=== PATIENT | male | born 1935 | race Caucasian/White ===

== ENCOUNTER 2018-07-12 14:57 | Emergency (ER) | payer MEDICARE, OTHER, SELFPAY ==
[2018-07-12 14:57] VITALS: BP 162/73; PULSE 123; RESP 18; TEMP 37.1; O2SAT 93; BMI 30.9
[2018-07-12] MEDS: Ondansetron 4 MG/2 ML Vial IV (15:24)
[2018-07-12 15:36] LABS: BUN 34 mg/dL (7-18); Creatinine, Serum 1.68 mg/dL (0.70-1.30); Estimated Creatinine Clearance 33.32 ml/min; Glucose 154 mg/dL (74-106)
[2018-07-12 15:37] LABS: Anion Gap 12 (5-15); BUN/Creat Ratio 20.2 RATIO (10-20); Calcium,Total 9.8 mg/dL (8.5-10.1); Chloride 105 mmol/L (98-107); EST Glomerular Filtration Rate 42 mL/min (>60); Est Glom Filt Rate - Afr Amer 50 mL/min (>60); Potassium 4.2 mmol/L (3.5-5.1); Sodium Level 141 mmol/L (136-145)
--- NOTE | 2018-07-12 15:47 | ED.VISSUMM ---
- ER Visit Summary Date of Service: 07/12/18 Chief Complaint: Nausea and vomiting since last evening History of Present Illness: The patient is a 83 M who presents with nausea and vomiting since last evening. Onset 2100. He states he has vomited at least 10 times. He denies blood or coffee grounds in his emesis. He reports brown colored stool. He is passing gas. He is status post appendectomy and exploratory surgery for traumatic injury to his liver many years ago. He denies abdominal pain, distention or sensation of feeling bloated. He denies thirst does report mild dry mouth denies orthostatic symptoms. He denies decreased urine output or change in color of his urine. He denies fever, chills or night sweats. He denies weight gain or weight loss. He denies ocular, visual or auditory symptoms. He denies cardiac or respiratory symptoms. GI symptoms as documented in HPI. per HPI otherwise negative he denies myalgias, arthralgias or back pain. He denies paresthesia, anesthesia motor weeks. He denies problems with balance. Please read written note for complete detail Physical Examination: Vital signs noted and remarkable for an elevated blood pressure 162/73 and heart rate 123. Monitor reveals a sinus tachycardia greater than 120 without ectopy. HEENT exam is remarkable dry mucosa otherwise negative. Heart is rapid and regular without murmur, gallop or rub. Lungs are clear to auscultation. Abdomen is soft nontender bowel sounds present normal. There is no temporal percussion. Midline incision noted. Lower extremity exam reveals lack of hair, which patient states is chronic. He has no symptoms of claudication. Neuro exam is nonfocal. Please read written note for complete detail Test Results: Basic metabolic panels marked for glucose of 154 BUN 34 and a creatinine 1.68. April 22 creatinine was 1.45. Emergency Department Course and Treatment: 1 L of normal saline and Zofran. Patient did passed p.o. challenge. Basic metabolic panel was obtained to assess renal function as well as potassium. Treatment Plan: Prescription for Zofran, advance diet as tolerated and outpatient follow-up for repeat blood work. Disposition: Discharged to home in stable condition Impression: 1. Nausea and vomiting 2. Renal insufficiency 3. Hyperglycemia and nondiabetic patient 4. Mild dehydration This note was generated with [employer] software. It may contain incorrect words, spelling, and punctuation that were not noted in review of the chart prior to signing ED Disposition - Plan for ED Patient: Disposition: Home or Assisted Living Chief Complaint: Nausea/Vomiting Instructions: ED Nausea Vomiting Prescriptions: Ondansetron [Zofran Odt] 8 mg PO Q8H PRN PRN #5 PRN Reason: Nausea/Vomiting Referrals: Ji Myrick MD [Primary Care Provider] - 1-2 Days if not improving
[2018-07-12 16:33] VITALS: BP 155/74; PULSE 80; RESP 16; O2SAT 94
[2018-07-12 16:52] VITALS: BP 155/74; PULSE 80; RESP 16; O2SAT 94
== END 2018-07-12 16:53 | disposition home or self-care (01) ==
PROVIDERS: Emergency Provider Emergency Medicine; Family Provider Internal Medicine; PCP Internal Medicine
DX: R11.2 Nausea with vomiting, unspecified (principal); E86.0 Dehydration; I10 Essential (primary) hypertension; R73.9 Hyperglycemia, unspecified; N28.9 Disorder of kidney and ureter, unspecified; R00.0 Tachycardia, unspecified; Z79.899 Other long term (current) drug therapy
CPT/HCPCS: 80048; 96374; 99283; A4216; J2405

== ENCOUNTER 2019-06-05 05:08 | Inpatient (IN) | payer MEDICARE, OTHER, SELFPAY ==
[2019-03-06 11:07] VITALS: BMI 30.5
[2019-06-05] VITALS (12 sets, daily range): BP systolic 102–175; BP diastolic 57–87; PULSE 49–92; RESP 16–19; TEMP 36.4–36.8; O2SAT 95–96; BMI 29.5; BMI 30.6
--- NOTE | 2019-06-05 05:35 | ED.DCSUM_ITS ---
History of Present Illness Chief Complaint: GI Bleed Informant: Patient Onset: Today Context: Sudden Onset Timing: - - x2 this am, large amounts w/ clots, no stool Quality: bright red blood Location: rectal Worsened by: n/a Relieved by: n/a Associated Symptoms: none Narrative: Patient states couple days ago he felt some rectal irritation like he had a perianal rash that was sore. He had normal stools. This morning woke up with large amounts of rectal bleeding. He denies any weakness, lightheadedness, nausea, vomiting, abdominal pain. Denies any rectal pain right now. He has never had this before. He takes a baby aspirin per day but no antiplatelet otherwise and no anticoagulants. - Past Medical History (1) Hypertension Status: Chronic Past Medical History - Allergies and Home Meds Allergies/Adverse Reactions: Allergies shellfish derived Adverse Reaction (Verified 06/05/19 05:13) Nausea/Vom/Diarrhea Primary Care Physician: Ji Myrick MD [Primary Care Provider] - Surgical History: appendectomy, herniorrhaphy - Left inguinal Lives: Spouse/ Significant Other Smoking Status: Never smoker Review of Systems General: Denies: Chills, Fever, Sweats Eyes: Denies: Visual changes - bilaterally, Diplopia ENT: Denies: Rhinorrhea, Sore throat Cardiovascular: Denies: Chest pain, Palpitations Respiratory: Denies: Dyspnea, Cough, Dyspnea on exertion Gastrointestinal: Reports: Hematochezia. Denies: Abdominal pain, Nausea, Vomiting, Diarrhea, Melena Genitourinary: Denies: Dysuria, Hematuria, Frequency Musculoskeletal: Denies: Back pain, Extremity Pain Skin: Denies: Rash, Wounds Neurological: Denies: Headache, Weakness, Numbness Physical Exam Vital Signs/Narrative: Vital Signs Temp Pulse Resp BP Pulse Ox 06/05/19 05:09 98.2 F 92 19 H 171/87 H 96 Inital Vital Signs reviewed: Yes General: Well nourished, Well developed, No Acute Distress - Well-appearing Head: Normocephalic, Atraumatic Eyes: Perrl, EOMI ENT: Moist mucous membranes, No rhinorrhea Neck: Supple, Nontender Cardiovascular: Regular rate, Regular rhythm, No murmurs. Negative for: Tachycardia Respiratory: No distress, CTA bilaterally, Chest nontender Abdomen: Soft, Nontender, Nondistended, Normal bowel sounds Rectal: Nontender - No perianal lesions or rash or tenderness or fullness. Dark red blood present on rectal exam, no pooling. Back: Nontender, Normal Inspection Extremities: Nontender, No edema Skin: Normal color, No rash, No Trauma Neurological: Alert, Oriented x3, Cranial nerves II-XII grossly intact, Normal Strength, Normal Sensation Psychological: Normal affect, Normal Mood Diagnostic/Tx/Re-eval Laboratory Tests 06/05/19 06/05/19 Range/Units 05:15 05:15 WBC 10.6 (4.4-11.0) K/mm3 RBC 4.41 L (4.6-6.2) M/mm3 Hgb 13.3 (13.0-16.5) g/dL Hct 41.4 (40-54) % MCV 93.9 (80-94) fL MCH 30.2 (27.0-32.0) pg MCHC 32.1 (32-36) g/dL RDW Std Deviation 45.7 H (35.1-43.9) fl RDW Coeff of Cesar 13.3 (11.6-14.6) % Plt Count 324 (150-450) K/mm3 MPV 9.0 (6.2-12.0) fl Immature Gran % (Auto) 0.500 (0.0-0.9) % Neut % (Auto) 48.2 (47-70) % Lymph % (Auto) 33.6 (19-41) % [place] % (Auto) 7.7 (0-10) % Eos % (Auto) 9.0 H (0-5) % Baso % (Auto) 1.0 (0-1) % Absolute Neuts (auto) 5.1 (2.0-7.7) X10^3/uL Absolute Lymphs (auto) 3.55 (0.83-4.51) X10^3/uL Nucleated RBC % 0 (0-5) % Sodium 143 (136-145) mmol/L Potassium 4.7 (3.5-5.1) mmol/L Chloride 111 H (98-107) mmol/L Carbon Dioxide 23.0 (21.0-32.0) mmol/L Anion Gap 9 (5-15) BUN 38 H (7-18) mg/dL Creatinine 2.14 H (0.70-1.30) mg/dL Estim Creat Clear Calc 27.01 ml/min Est GFR (MDRD) Af Amer 38 L (>60) mL/min Est GFR (MDRD) Non-Af 31 L (>60) mL/min BUN/Creatinine Ratio 17.8 (10-20) RATIO Glucose 143 H (74-106) mg/dL Calcium 8.8 (8.5-10.1) mg/dL Total Bilirubin 0.30 (0.20-1.00) mg/dL AST 14 L (15-37) U/L ALT 13 L (16-61) U/L Alkaline Phosphatase 68 (45-117) U/L Total Protein 7.5 (6.4-8.2) g/dL Albumin 3.8 (3.2-5.0) g/dL Globulin 3.7 (2.2-4.2) g/dL Albumin/Globulin Ratio 1.0 (0.9-2.4) RATIO - Medical Decision Making Patient had several other small bloody bowel movements in the emergency department. His orthostatics are positive although the patient did not feel poorly or lightheaded. Due to this even though his blood counts are stable, plan will be for admission. ED Disposition - Plan for ED Patient: Disposition: Acute Care Hospital [facility] Diagnosis: Lower GI bleed Referrals: Ji Myrick MD [Primary Care Provider] -
[2019-06-05] MEDS: 0.9% Normal Saline 1,000 ML 125 ML IV ×3 (05:46→22:12)
[2019-06-05 05:52] LABS: Absolute Lymphocyte Count 3.55 X10^3/uL (0.83-4.51); Absolute Neutrophil Count 5.1 X10^3/uL (2.0-7.7); Basophil# 0.11 X10^3/uL; Eosinophil# 0.95 X10^3/uL; Hematocrit 41.4 % (40-54); Hemoglobin 13.3 g/dL (13.0-16.5); Lymphocyte # 3.55 X10^3/ul (4.0); Lymphocyte % 33.6 % (19-41); Mean Corp Hgb Conc 32.1 g/dL (32-36); Mean Corpuscular Hgb 30.2 pg (27.0-32.0); Mean Corpuscular Volume 93.9 fL (80-94); Monocyte# 0.81 X10^3/uL; Monocyte% 7.7 % (0-10); NRBC Flagged by Analyzer 0 % (0-5); Neutrophil % 48.2 % (47-70); Platelet Count 324 K/mm3 (150-450); RBC Distribution Width CV 13.3 % (11.6-14.6); RBC Distribution Width SD 45.7 fl (35.1-43.9); Red Blood Count 4.41 M/mm3 (4.6-6.2); White Blood Count 10.6 K/mm3 (4.4-11.0)
[2019-06-05 06:07] LABS: AST(SGOT) 14 U/L (15-37); Alanine Aminotransfer ALT/SGPT 13 U/L (16-61); Albumin, Serum 3.8 g/dL (3.2-5.0); Alkaline Phosphatase 68 U/L (45-117); Anion Gap 9 (5-15); BUN 38 mg/dL (7-18); BUN/Creat Ratio 17.8 RATIO (10-20); Calcium,Total 8.8 mg/dL (8.5-10.1); Chloride 111 mmol/L (98-107); Creatinine, Serum 2.14 mg/dL (0.70-1.30); EST Glomerular Filtration Rate 31 mL/min (>60); Est Glom Filt Rate - Afr Amer 38 mL/min (>60); Estimated Creatinine Clearance 27.01 ml/min; Globulin 3.7 g/dL (2.2-4.2); Glucose 143 mg/dL (74-106); Potassium 4.7 mmol/L (3.5-5.1); Protein, Total 7.5 g/dL (6.4-8.2); Sodium Level 143 mmol/L (136-145)
--- NOTE | 2019-06-05 06:28 | HP.PCM_ITS ---
History of Present Illness Date of Admission: 06/05/19 Chief Complaint: Painless rectal bleeding The patient is a 83 year old M with past medical history of hypertension, hyperlipidemia, BPH and diverticular disease. He was admitted through the ED on 06/05/2019 with a complaint of bright red bleeding per rectum was started a few hours prior to admission. Patient states he has been having dark-colored stools over the past few days but he thought it would go away. However in the early hours of the day of presentation, he started having profuse bright red bleeding per rectum. This was associated with some clots. He denied any associated lightheadedness, dizziness, palpitations, abdominal pain or vomiting. He has never had such rectal bleeding before. He has had no unexplained weight loss and has not been diagnosed with any form of cancer. However he states he had colonoscopy about 5 years ago and was told he had diverticular disease. Review of systems is otherwise negative. In the ED at time of review, blood pressure was 163/84. Vitals were otherwise stable. Chemistry showed creatinine of 2.14 and CBC showed hemoglobin of 13.3. He has been admitted to be managed for acute lower GI bleed likely due to diverticular disease. [] Past Medical History Past Medical History (Chronic Problems): Chronic Problems (Last Updated 03/06/19 @ 11:28 by Mariana Borden) Hypertension (Chronic) Medical History: Medical History (Last Updated 03/06/19 @ 11:28 by Mariana Borden) HTN (hypertension) I10 Allergies shellfish derived Adverse Reaction (Verified 06/05/19 05:13) Nausea/Vom/Diarrhea Home Medications: Ambulatory Orders Medication Instructions Recorded Finasteride 5 mg PO DAILY 01/02/14 Metoprolol Tartrate 50 mg PO DAILY 01/02/14 Simvastatin 40 mg PO DAILY 01/02/14 Amlodipine Besylate/Benazepril 0.5 tab PO DAILY 07/12/18 [Amlodipine-Benazepril 5-20 mg] Cholecalciferol (VIT D3) [Vitamin 1,000 unit PO DAILY 07/12/18 D] Multivit-Min/FA/Lycopen/Lutein 1 tab PO DAILY 07/12/18 [Centrum Silver Tablet] Ondansetron [Zofran Odt] 8 mg PO Q8H PRN PRN #5 07/12/18 cephalexin 500 mg capsule 500 mg PO TID #30 cap 03/06/19 Surgical History: appendectomy, herniorrhaphy - Left inguinal Lives: Spouse/ Significant Other Smoking Status: Never smoker Alcohol: Occasional Drugs: None - *Family History Maternal History Items: No pertinent history Paternal History Items: No pertinent history Sibling History Items: Cancer - brother had bone cancer Review of Systems Constitutional: Denies: Chills, Fever, Malaise, Weakness, Weight Change, Fatigue Eyes: Denies: Blurred vision HEENT: Denies: Head Aches, Sinus Congestion, Sinus Drainage Cardiovascular: Denies: Chest Pain, Palpitations Respiratory: Denies: Cough, Shortness of Breath, Shortness of breath at rest, Sputum production Gastrointestinal: Reports: Hematochezia. Denies: Abdominal Pain, Diarrhea, Dyspepsia, Nausea, Vomiting Genitourinary: Denies: Dysuria Musculoskeletal: Denies: Joint Pain, Joint Tenderness Skin: Denies: Rash, Wounds Neurological: Denies: Numbness, Tingling, Focal weakness Psychiatric: Denies: Anxiety, Depression, Homicidal Ideations, Suicidal Ideations Hematologic/ Lymphatic: Denies: Easy Bruising, Easy Bleeding VTE Information - Inpt Only VTE Present on Admission: No VTE Pharm Prophylaxis ordered?: No Reason prophylaxis not ordered:: Medical Contraindication - rectal bleeding Patient Problems: Active and Suspected Problems (Last Updated 03/06/19 @ 11:28 by Mariana Borden) Lower GI bleed (Acute) - Physical Exam General: Alert, Oriented x3, Cooperative, No apparent distress HEENT: Atraumatic, PERRLA, EOMI, Normocephalic Oral: Dry Mucosa Neck: Supple, No JVD, Negative Carotid Bruits Lungs: Clear to auscultation, Normal air movement, No rhonchi, No wheeze, No rales Cardiovascular: Regular rate, Regular Rhythm, Normal S1, Normal S2, No murmurs Abdomen: Bowel Sounds Present, Soft, Non Tender, Non-Distended, No Hepato- splenomegaly Extremities: No clubbing, No cyanosis, No edema, Capillary Refill Less than 3 Seconds Skin: No rashes, No breakdown Musculoskeletal: No Tenderness to Palpation of Joints or Extremities Lymphatic: No Cervical, Supraclavicular, or Inguinal Adenopathy Neurological: Cranial nerves II-XII grossly intact, Neuro grossly intact, Motor Exam 5/5 strength throughout Psych/Mental Status: Normal Affect, Appropriate, Alert and oriented to time, place, person, mood and affect Vital Signs Temp Pulse Resp BP Pulse Ox 98.2 F 92 19 H 171/87 H 96 06/05/19 05:09 06/05/19 05:09 06/05/19 05:09 06/05/19 05:09 06/05/19 05:09 Oxygen Delivery Method Room Air Weight: 205 lb 11.06 oz Body Mass Index (BMI) 29.5 Laboratory Tests Past 24 Hrs 06/05/19 06/05/19 06/05/19 05:15 05:15 05:15 WBC 10.6 RBC 4.41 L Hgb 13.3 Hct 41.4 MCV 93.9 MCH 30.2 MCHC 32.1 RDW Std Deviation 45.7 H RDW Coeff of Cesar 13.3 Plt Count 324 MPV 9.0 Immature Gran % (Auto) 0.500 Neut % (Auto) 48.2 Lymph % (Auto) 33.6 [place] % (Auto) 7.7 Eos % (Auto) 9.0 H Baso % (Auto) 1.0 Absolute Neuts (auto) 5.1 Absolute Lymphs (auto) 3.55 Nucleated RBC % 0 Sodium 143 Potassium 4.7 Chloride 111 H Carbon Dioxide 23.0 Anion Gap 9 BUN 38 H Creatinine 2.14 H Estim Creat Clear Calc 27.01 Est GFR (MDRD) Af Amer 38 L Est GFR (MDRD) Non-Af 31 L BUN/Creatinine Ratio 17.8 Glucose 143 H Calcium 8.8 Total Bilirubin 0.30 AST 14 L ALT 13 L Alkaline Phosphatase 68 Total Protein 7.5 Albumin 3.8 Globulin 3.7 Albumin/Globulin Ratio 1.0 Blood Type Pending Antibody Screen Pending Assessment/Plan All Active Problems (Last Updated 03/06/19 @ 11:28 by Mariana Borden) Lower GI bleed (Acute) Cellulitis of left forearm (Acute) Abrasion of left forearm (Acute) 83-year-old male admitted with a complaint of painless rectal bleeding. 1. Acute lower GI bleed likely due to diverticular disease * Admit to PCU with telemetry * States his been told in the past he has diverticular disease but has never had rectal bleeding before. Last colonoscopy according to him was about 5 years ago. * Keep n.p.o. Hydrate with IV fluid normal saline at 125 cc/h * check orthostatics * Consult general surgery-Dr. Shane to be consulted per family request. * Start IV PPI. If colonoscopy reveals diverticular bleed, to consider stopping PPI * type and screen blood * 2. MAIA on CKD: * Creatinine is 2.14 with a baseline of around 1.68 from 2018. Hydrate with IV fluid normal saline. Monitor creatinine. 3. Hypertension: On amlodipine benazepril as well as metoprolol. 4. BPH: On finasteride. 5. Hyperlipidemia: On statin. DVT prophylaxis: SCDs. No anticoagulation on account of lower GI bleed. CODE STATUS: DNR CCA * Patient counseled extensively about different types of CODE STATUS including full code, DNR CCA and DNR CCA. Patient elects to be DNRCCA. Total [id number] time 16 minutes. Code Visit Inpatient E&M: 85917 Init Hosp L3 Procedures: 56921 Advncd Care Plan 30 Min
[2019-06-05 10:23] LABS: International Normalized Ratio 1.1; Prothrombin Time (Protime)PT. 14.1 SECONDS (11.7-14.9)
[2019-06-05 11:31] LABS: Hematocrit 35.6 % (40-54); Hemoglobin 11.3 g/dL (13.0-16.5)
--- NOTE | 2019-06-05 13:08 | CASEMGMT ---
RN CM Assessment: attempted to complete assessment. Physician is with pt. Sussy INIGUEZN RN ACM
--- NOTE | 2019-06-05 14:04 | CON.PCM_ITS ---
Reason for Consult Date of Consultation: 06/05/19 Reason for Consultation: GI bleeding History of Present Illness: The patient is a 83 year old M who notes a history of intermittent bright red rectal bleeding x several days. Notes a few days ago had some mild anal irritation and what seemed like a rash. Noted some blood in stools over the weekend which then seemed to resolve, and then this morning passed a large amount of bright red blood along with some clots in his stool which prompted him to present to the emergency department. Patient had labs in the ED which showed hemoglobin of 11.3. He was admitted for observation. Patient denies any abdominal pain, fever, chills, or changes in bowel habits. Denies dizziness or weight changes. Denies nausea or changes in appetite. States he feels well otherwise and has had a few more stools since his hospital admission which were non-bloody. He denies any prior history of GI bleeding episodes. His last colonoscopy was [address] Alford, per patient no concerning findings noted at that time. Patient's past medical history is significant for hypertension, hyperlipidemia, BPH, diverticular disease. He denies problems with sedation in the past. Past Medical History Past Medical History (Chronic Problems): Chronic Problems (Last Updated 03/06/19 @ 11:28 by Mariana Borden) Hypertension (Chronic) Medical History: Medical History (Last Updated 03/06/19 @ 11:28 by Mariana Borden) HTN (hypertension) I10 Allergies shellfish derived Adverse Reaction (Verified 06/05/19 05:13) Nausea/Vom/Diarrhea Home Medications: Ambulatory Orders Medication Instructions Recorded Finasteride 5 mg PO DAILY 01/02/14 Metoprolol Tartrate 50 mg PO BID 01/02/14 Simvastatin 40 mg PO DAILY 01/02/14 Cholecalciferol (VIT D3) [Vitamin 1,000 unit PO DAILY 07/12/18 D] Multivit-Min/FA/Lycopen/Lutein 1 tab PO DAILY 07/12/18 [Centrum Silver Tablet] Amlodipine Besylate/Benazepril 1 ea PO DAILY 06/05/19 [Amlodipine-Benazepril 5-20 mg] Aspirin [Adult Low Dose Aspirin EC] 81 mg PO DAILY 06/05/19 Fiber PO DAILY 06/05/19 Lactobacillus Acidophilus 1 ea PO DAILY 06/05/19 [Acidophilus] Surgical History: appendectomy, herniorrhaphy - Left inguinal Lives: Spouse/ Significant Other Smoking Status: Never smoker Alcohol: Occasional Drugs: None - *Family History Maternal History Items: No pertinent history Paternal History Items: No pertinent history Sibling History Items: Cancer - brother had bone cancer Review of Systems Constitutional: Denies: Anorexia, Chills, Fever, Malaise, Weakness, Fatigue Eyes: Denies: Vision Change HEENT: Denies: Difficulty Hearing, Visual Changes Cardiovascular: Denies: Chest Pain, Chest Pressure, Chest Tightness, Edema Respiratory: Denies: Shortness of breath at rest Gastrointestinal: Reports: Hematochezia. Denies: Abdominal Pain, Constipation, Diarrhea, Hematemesis, Nausea, Vomiting Hematologic/ Lymphatic: Denies: Easy Bruising, Easy Bleeding Patient Problems: Active and Suspected Problems (Last Updated 03/06/19 @ 11:28 by Mariana huynh) Lower GI bleed (Acute) - Physical Exam General: Alert, Oriented x3, Cooperative, No apparent distress HEENT: Atraumatic Oral: Moist Mucosa Neck: Supple Lungs: Clear to auscultation, Normal air movement Cardiovascular: Regular rate, Regular Rhythm, Normal S1, Normal S2 Abdomen: Bowel Sounds Present, Soft, Non Tender Extremities: No clubbing, No cyanosis, No edema Skin: No rashes, No breakdown Musculoskeletal: No Tenderness to Palpation of Joints or Extremities Psych/Mental Status: Normal Affect Vital Signs Temp Pulse Resp BP Pulse Ox 97.5 F L 59 L 18 131/59 H 95 06/05/19 07:59 06/05/19 10:35 06/05/19 07:59 06/05/19 07:59 06/05/19 07:59 Oxygen Delivery Method Room Air Weight: 201 lb 8.04 oz Body Mass Index (BMI) 30.6 Laboratory Tests Past 24 Hrs 06/05/19 06/05/19 06/05/19 05:15 05:15 05:15 WBC 10.6 RBC 4.41 L Hgb 13.3 Hct 41.4 MCV 93.9 MCH 30.2 MCHC 32.1 RDW Std Deviation 45.7 H RDW Coeff of Cesar 13.3 Plt Count 324 MPV 9.0 Immature Gran % (Auto) 0.500 Neut % (Auto) 48.2 Lymph % (Auto) 33.6 [place] % (Auto) 7.7 Eos % (Auto) 9.0 H Baso % (Auto) 1.0 Absolute Neuts (auto) 5.1 Absolute Lymphs (auto) 3.55 Nucleated RBC % 0 PT INR Sodium 143 Potassium 4.7 Chloride 111 H Carbon Dioxide 23.0 Anion Gap 9 BUN 38 H Creatinine 2.14 H Estim Creat Clear Calc 27.01 Est GFR (MDRD) Af Amer 38 L Est GFR (MDRD) Non-Af 31 L BUN/Creatinine Ratio 17.8 Glucose 143 H Calcium 8.8 Total Bilirubin 0.30 AST 14 L ALT 13 L Alkaline Phosphatase 68 Total Protein 7.5 Albumin 3.8 Globulin 3.7 Albumin/Globulin Ratio 1.0 Blood Type O POSITIVE Antibody Screen NEGATIVE 06/05/19 06/05/19 05:15 11:22 WBC RBC Hgb 11.3 L Hct 35.6 L MCV MCH MCHC RDW Std Deviation RDW Coeff of Cesar Plt Count MPV Immature Gran % (Auto) Neut % (Auto) Lymph % (Auto) [place] % (Auto) Eos % (Auto) Baso % (Auto) Absolute Neuts (auto) Absolute Lymphs (auto) Nucleated RBC % PT 14.1 INR 1.1 Sodium Potassium Chloride Carbon Dioxide Anion Gap BUN Creatinine Estim Creat Clear Calc Est GFR (MDRD) Af Amer Est GFR (MDRD) Non-Af BUN/Creatinine Ratio Glucose Calcium Total Bilirubin AST ALT Alkaline Phosphatase Total Protein Albumin Globulin Albumin/Globulin Ratio Blood Type Antibody Screen Assessment/Plan All Active Problems (Last Updated 03/06/19 @ 11:28 by Mariana Borden) Lower GI bleed (Acute) Cellulitis of left forearm (Acute) Abrasion of left forearm (Acute) I have reviewed my findings with Dr. Avery, who will also independently evaluate the patient. Will plan for colonoscopy as well as possible EGD tomorrow for further evaluation of GI bleeding. The proposed technique, risks and benefits have been discussed with the patient and the patient agrees to proceed with endoscopy. Will plan for clear liquid diet with bowel preparation later today in anticipation of procedure tomorrow.
--- NOTE | 2019-06-05 14:20 | CASEMGMT ---
JOSELO GRAY assessment: Face to Face with patient for initial transition planning/care coordination assessment. JOSELO GRAY introduced self and role at [facility] [place], pt voices understanding and consents to assessment at this time. Pt is lying in bed in no distress at this time. Pt is A/Ox4 at this time and answers all questions appropriately at this time. Care providers, pharmacy, and demographics verified/updated at this time. PCP: [facility] Specialists: Pt states currently has no specialists. Preferred Pharmacy: [facility] Insurance: MCR A/B, [employer] Prescription Benefit: [employer] Living Will/HPOA: Pt states has LW/HPOA and is aware that they are no on file at [facility] [place] at this time. Pt states that his , Mildred Guillaume, is HPOA. LNOK: Mildred Guillaume, Living Arrangements: Pt lives with on main level of a condo and states no concerns at home at this time. Pt states is independent with ADL's. Transportation: Pt states drives self and states no transportation concerns at this time. DME/HHC: Pt states no current DME or need for any at this time. Pt states no hx of HHC or SNF in the past. Pt states no concerns with going home at time of discharge. Pt is retired. Pt states does not smoke or drink ETOH. Pt states no further concerns/needs at this time. CM to follow for any further discharge planning/needs. Advised pt to ask for CM if any further questions/concerns/needs arise, voices understanding. Pt Goal: Home Plan[place] JOSELO GRAY
--- NOTE | 2019-06-05 15:01 | PCM.PN.HOSP ---
Patient Problems: Active and Suspected Problems (Last Updated 03/06/19 @ 11:28 by Mariana Borden) Lower GI bleed (Acute) Subjective: Bleeding improved. Never had this before. Vitals/I&O's: Vital Signs Temp Pulse Resp BP Pulse Ox 36.4 C L 55 L 16 102/57 L 95 06/05/19 14:04 06/05/19 14:04 06/05/19 14:04 06/05/19 14:04 06/05/19 14:04 Oxygen Delivery Method Room Air Weight: 91.4 kg Body Mass Index (BMI) 30.6 General: Alert, No apparent distress HEENT: Atraumatic, Normocephalic Oral: Moist Mucosa, No Gingival or Mucosal Lesions/ Ulcerations Neck: No Nodes, Thyroid Normal Size and Texture Lungs: Clear to auscultation, Normal air movement, No rhonchi, No wheeze, No rales Cardiovascular: Regular rate, Regular Rhythm, Normal S1, Normal S2, No murmurs Abdomen: Bowel Sounds Present, Soft, Non Tender, Non-Distended, No Hepato-splenomegaly Extremities: No edema, No Calf Tenderness Psych/Mental Status: Normal Affect, Appropriate Laboratory Results 06/05/19 05:15: WBC 10.6, RBC 4.41 L, Hgb 13.3, Hct 41.4, MCV 93.9, MCH 30.2, MCHC 32.1, RDW Std Deviation 45.7 H, RDW Coeff of Cesar 13.3, Plt Count 324, MPV 9.0, Immature Gran % (Auto) 0.500, Neut % (Auto) 48.2, Lymph % (Auto) 33.6, [place] % (Auto) 7.7, Eos % (Auto) 9.0 H, Baso % (Auto) 1.0, Absolute Neuts (auto) 5.1, Absolute Lymphs (auto) 3.55, Nucleated RBC % 0 06/05/19 05:15: Sodium 143, Potassium 4.7, Chloride 111 H, Carbon Dioxide 23.0, Anion Gap 9, BUN 38 H, Creatinine 2.14 H, Estim Creat Clear Calc 27.01, Est GFR (MDRD) Af Amer 38 L, Est GFR (MDRD) Non-Af 31 L, BUN/Creatinine Ratio 17.8, Glucose 143 H, Calcium 8.8, Total Bilirubin 0.30, AST 14 L, ALT 13 L, Alkaline Phosphatase 68, Total Protein 7.5, Albumin 3.8, Globulin 3.7, Albumin/Globulin Ratio 1.0 06/05/19 05:15: Blood Type O POSITIVE, Antibody Screen NEGATIVE 06/05/19 05:15: PT 14.1, INR 1.1 06/05/19 11:22: Hgb 11.3 L, Hct 35.6 L Current Medications Amlodipine/Benazepril HCl (Lotrel 5-20 Mg Capsule) capsule PO DAILY [facility] Cholecalciferol (Vitamin D) 1,000 unit PO DAILY [facility] Dextrose (D50w Syringe) 0 gm IV X1 PRN; Protocol PRN Reason: Hypoglycemia Finasteride (Proscar) 5 mg PO DAILY [facility] Glucagon () 1 mg IM .X1 PRN PRN Reason: Hypoglycemia Sodium Chloride () 1,000 mls @ 125 mls/hr IV .Q8H [facility] Last Admin: 06/05/19 13:48 Dose: 125 mls/hr Documented by: Pantoprazole Sodium 40 mg/ (Sodium Chloride) 110 mls @ 330 mls/hr IV Q12 [facility] Last Admin: 06/05/19 09:43 Dose: 330 mls/hr Documented by: Metoprolol Tartrate (Lopressor (Beta Tate)) 50 mg PO BID [facility] Non-Formulary Medication (Multivit-Min/Fa/Lycopen/Lutein [Centrum Silver Tablet]) 1 tab PO DAILY [facility] Non-Formulary Medication (Simvastatin) 40 mg PO DAILY [facility] Sodium Chloride () 10 - 40 ml IV UD PRN PRN Reason: SALINE FLUSH Sodium Chloride/Electrolytes (Nulytely) 1,000 ml PO X1 ONE Stop: 06/05/19 16:03 Medical Necessity - Tobacco Use Smoking Status: Never smoker Assessment/Plan All Active Problems (Last Updated 03/06/19 @ 11:28 by Mariana Borden) Lower GI bleed (Acute) Cellulitis of left forearm (Acute) Abrasion of left forearm (Acute) 1. Lower GI bleed Suspect diverticular Complicated by aspirin use, which is been held Tentative plan from surgery, is a colonoscopy and EGD on the Will have clear diet for now Patient did have some further bleeding after I did evaluate him. 2. Acute blood loss anemia Hemoglobin dropped from 13.3-11.3 Monitor for now, no indication for transfusion 3. Suspected acute kidney injury Creatinine 2.14, baseline creatinine around 1.68 from June Currently on IV fluids Hold off on nephrotoxic agents Monitor 4. VTE prophylaxis: Moderate risk. SCDs. Chemical prophylaxis contraindicated in light of the GI bleed. Discussed with patient's . Greater than 35 minutes of which greater than 50% of the time was discussing with patient and his about the GI bleed and etiology and tentative plan. Code Visit Inpatient E&M: 70356 Subs Hosp L3
--- NOTE | 2019-06-05 16:45 | CHAPLAIN ---
Type of Pastoral Visit _x__ Initial Visit ___ Follow-up Visit ___ On-call Visit ___ General Patient Visit ___ Spiritual Assessment ___ Family Conference ___ Bereavement ___ Rapid Response ___ Code Blue ___ Other (describe below) Pastoral Care Referral From _x__ Patient ___ Family ___ Nurse ___ Physician ___ Paper Bundler ___ Pattern Illustrator ___ Other (describe below) Sacrament/Intervention _x__ Active listening ___ Anointing ___ Taoism ___ Bereavement ___ Communion ___ Misti exploration ___ _x__ Life review _x__ Prayer ___ Reconciliation ___ Sacrament of Sick _x__ Supportive presence ___ Wedding ___ Other (describe below) Pastoral Comments
[2019-06-05] MEDS: Electrolyte Solution/Peg's 4000 ML 1000 ML PO (17:01)
[2019-06-05] MEDS: Metoprolol Tartrate 50 MG Tablet PO (21:38)
[2019-06-05] MEDS: Atorvastatin Calcium 20 MG Tablet PO (21:38)
[2019-06-06] VITALS (18 sets, daily range): BP systolic 105–171; BP diastolic 44–82; PULSE 56–69; RESP 16–18; TEMP 36.4–37.2; O2SAT 93–99; BMI 31.1; BMI 30.6
--- NOTE | 2019-06-06 00:53 | NURSING ---
continually encouraged patient to drink bowel prep. finished bowel prep at 0030.
--- NOTE | 2019-06-06 05:55 | EKG12_ITS ---
Test Reason : AM EKG Blood Pressure : / mmHG Vent. Rate : 063 BPM Atrial Rate : 063 BPM P-R Int : 204 ms QRS Dur : 090 ms QT Int : 436 ms P-R-T Axes : 064 051 064 degrees QTc Int : 446 ms Normal sinus rhythm Normal ECG When compared with ECG of 20-AUG-2009 10:27, No significant change was found Confirmed by FADIA DOWELL ([id number]), editor managing director OMEGA ALLISON ([id number]) on 06/12/2019 2:45:18 PM Referred By: DR STEEN Confirmed By:FADIA DOWELL
[2019-06-06 06:02] LABS: Absolute Lymphocyte Count 1.13 X10^3/uL (0.83-4.51); Absolute Neutrophil Count 16.1 X10^3/uL (2.0-7.7); Basophil# 0.06 X10^3/uL; Basophil% 0.3 % (0-1); Eosinophil# 0.08 X10^3/uL; Eosinophils% 0.4 % (0-5); Hemoglobin 10.5 g/dL (13.0-16.5); Lymphocyte # 1.13 X10^3/ul (4.0); Mean Corp Hgb Conc 31.8 g/dL (32-36); Mean Corpuscular Hgb 30.7 pg (27.0-32.0); Mean Corpuscular Volume 96.5 fL (80-94); Mean Platelet Vol. 9.3 fl (6.2-12.0); Monocyte# 1.29 X10^3/uL; Monocyte% 6.9 % (0-10); NRBC Flagged by Analyzer 0 % (0-5); Neutrophil # 16.06 X10^3/uL (2.7-7.7); Platelet Count 318 K/mm3 (150-450); RBC Distribution Width CV 13.5 % (11.6-14.6); RBC Distribution Width SD 48.1 fl (35.1-43.9); Red Blood Count 3.42 M/mm3 (4.6-6.2); White Blood Count 18.7 K/mm3 (4.4-11.0)
[2019-06-06 06:18] LABS: Anion Gap 5 (5-15); BUN 31 mg/dL (7-18); BUN/Creat Ratio 21.5 RATIO (10-20); Calcium,Total 7.9 mg/dL (8.5-10.1); Chloride 119 mmol/L (98-107); Creatinine, Serum 1.44 mg/dL (0.70-1.30); EST Glomerular Filtration Rate 50 mL/min (>60); Est Glom Filt Rate - Afr Amer 60 mL/min (>60); Glucose 95 mg/dL (74-106); Potassium 5.4 mmol/L (3.5-5.1); Sodium Level 145 mmol/L (136-145)
[2019-06-06] MEDS: 0.9% Normal Saline 1,000 ML 125 ML IV ×2 (06:33→17:35)
--- NOTE | 2019-06-06 06:36 | PN.SURG_ITS ---
Patient Problems: Active and Suspected Problems (Last Updated 03/06/19 @ 11:28 by Mariana Borden) Lower GI bleed (Acute) Subjective: completed bowel prep, no bleeding noted during prep - Physical Exam General: Alert, Oriented x3, Cooperative Lungs: Clear to auscultation, Normal air movement Cardiovascular: Regular rate, No murmurs Abdomen: Bowel Sounds Present, Soft, Non Tender Vital Signs Temp Pulse Resp BP Pulse Ox 97.9 F 68 18 171/78 H 99 06/06/19 05:37 06/06/19 05:37 06/06/19 05:37 06/06/19 05:37 06/06/19 05:37 Oxygen Delivery Method Room Air Weight: 91.4 kg Body Mass Index (BMI) 30.6 Intake and Output for Last 24 Hours 06/04/19 06/05/19 06/06/19 23:59 23:59 23:59 Intake Total 1941 791.8 / 791.8 Balance 1941 791.8 / 791.8 Laboratory Tests Past 24 Hrs 06/05/19 06/05/19 06/05/19 05:15 05:15 11:22 WBC RBC Hgb 11.3 L Hct 35.6 L MCV MCH MCHC RDW Std Deviation RDW Coeff of Cesar Plt Count MPV Immature Gran % (Auto) Neut % (Auto) Lymph % (Auto) [place] % (Auto) Eos % (Auto) Baso % (Auto) Absolute Neuts (auto) Absolute Lymphs (auto) Nucleated RBC % PT 14.1 INR 1.1 Sodium Potassium Chloride Carbon Dioxide Anion Gap BUN Creatinine Estim Creat Clear Calc Est GFR (MDRD) Af Amer Est GFR (MDRD) Non-Af BUN/Creatinine Ratio Glucose Calcium Blood Type O POSITIVE Antibody Screen NEGATIVE 06/06/19 06/06/19 05:26 05:26 WBC 18.7 H RBC 3.42 L Hgb 10.5 L Hct 33.0 L MCV 96.5 H MCH 30.7 MCHC 31.8 L RDW Std Deviation 48.1 H RDW Coeff of Cesar 13.5 Plt Count 318 MPV 9.3 Immature Gran % (Auto) 0.400 Neut % (Auto) 86.0 H Lymph % (Auto) 6.0 L [place] % (Auto) 6.9 Eos % (Auto) 0.4 Baso % (Auto) 0.3 Absolute Neuts (auto) 16.1 H Absolute Lymphs (auto) 1.13 Nucleated RBC % 0 PT INR Sodium 145 Potassium 5.4 H Chloride 119 H Carbon Dioxide 21.0 Anion Gap 5 BUN 31 H Creatinine 1.44 H Estim Creat Clear Calc 37.60 Est GFR (MDRD) Af Amer 60 Est GFR (MDRD) Non-Af 50 L BUN/Creatinine Ratio 21.5 H Glucose 95 Calcium 7.9 L Blood Type Antibody Screen Medical Necessity - Tobacco Use Smoking Status: Never smoker Assessment/Plan All Active Problems (Last Updated 03/06/19 @ 11:28 by Mariana Borden) Lower GI bleed (Acute) Cellulitis of left forearm (Acute) Abrasion of left forearm (Acute) GI bleeding Plan for EGD and Colonoscopy today. The patient understands the risks, benefits, possible complications and consents to the procedure.
--- NOTE | 2019-06-06 11:30 | EGD_PTH ---
PATIENT: JEANIE STAPLETON I LOC: [facility] U#:[id number] AGE/SX: 83/M ROOM: [facility] RE06/05/[address]: Dr. Jim Cortez DO : 1935 BED: 1 DIS: 06/07/2019 SPEC #: [id number] RECD: 06/06/19 13:53 STATUS: NENITA REKhai #: [id number] TOM: 06/06/19 11:[address]: Jeff Avery DEPT: SURGICAL PATHOLOGY RECD BY: Anthony Brand ENTERED: 06/06/19 14:03 SP TYPE: EGD BIOPSY OT DR: DO Dr. Heena Choi MD Dr. Victor Velasquez, MD Tissues: A - Gastric mucous membrane B - Gastric mucous membrane Procedures: Surgery Specimen Level IV HEADER OPERATION: Colonoscopy, EGD ([facility]) PRE-OP DIAGNOSIS: Lower GI bleeding TISSUE SUBMITTED: A - Antrum biopsy, H. pylori and path, B - GE junction biopsy MICROSCOPIC DIAGNOSIS A. Antrum, biopsy: Mild gastritis. See microscopic description and comment. B. GE junction, biopsy: A fragment of squamous epithelium, no pathologic diagnosis. SJ:rg 06/07/19 COMMENT A. The results of immunohistochemistry for Helicobacter pylori will be reported separately ([id number]). MICROSCOPIC DESCRIPTION Slides are reviewed. A. The specimen shows fragments of gastric mucosa with chronic inflammatory cell infiltrates in the lamina propria consisting of lymphocytes and plasma cells, consistent with mild chronic gastritis. GROSS DESCRIPTION A - Received in fixative is one container labeled with the patient's name and designated antrum biopsy. The specimen consists of multiple irregular fragments of light cox soft tissue that in aggregate measure 0.7 x 0.3 x 0.1 cm. The specimen is totally submitted in one cassette. B - Received in fixative is one container labeled with the patient's name and designated GE junction biopsy. The specimen consists of one irregular fragment of light cox soft tissue that measures 0.3 x 0.3 x 0.1 cm. The specimen is totally submitted in one cassette. / LOGAN:[place] 06/06/19 TC:3 CPT: 49077 x2
--- NOTE | 2019-06-06 11:30 | IMM_PTH ---
PATIENT: JEANIE STAPLETON I LOC: [facility] U#:[id number] AGE/SX: 83/M ROOM: [facility] RE06/05/[address]: Dr. Jim Cortez DO : 1935 BED: 1 DIS: 06/07/2019 SPEC #: [id number] RECD: 06/06/19 14:17 STATUS: [place] REQ #: [id number] TOM: 06/06/19 11:[address]: Jeff Avery DEPT: IMMUNOHISTOCHEMISTRY RECD BY: Lisa Burnett ENTERED: 06/06/19 14:18 SP TYPE: IMMUNO OTHR DR: DO Dr. Heena Choi MD Dr. Victor Velasquez, MD Tissues: A - Stomach, NOS Procedures: H Pylori (initial) PHYSICIAN & INSTITUTION [place] [id number] SPECIMEN INFORMATION: Tissue Source: A - Antrum biopsy Clinical Info: Lower GI bleeding Specimen Number: [id number] CPT code: 70049 METHODOLOGY: Deparaffinized sections of prefer/formalin-fixed tissue or PAP/DQ stained slides are incubated with monoclonal/polyclonal antibodies/oligonucleotide probes. Localization is made via biotin free immunoperoxidase method. Appropriate controls are performed and reacted as expected. Results on target cell population are indicated in the following table: RESULTS: ANTIBODY / CLONE RESULT Block A H Pylori (polyclonal) negative These tests were developed and their performance characteristics determined by [facility]. They may not have been cleared or approved by the U.S. Food and Drug Administration. The FDA has determined that such clearance or approval is not necessary. INTERPRETATION: A. Antrum biopsy: Negative for Helicobacter pylori organisms. SJ:[place]rna 06/07/19
--- NOTE | 2019-06-06 11:52 | PN_ITS ---
Patient Problems: Active and Suspected Problems (Last Updated 03/06/19 @ 11:28 by Mariana Borden) Lower GI bleed (Acute) Subjective: No further bleeding. Tolerated prep. Vitals/I&O's: Vital Signs Temp Pulse Resp BP Pulse Ox 36.6 C 59 L 16 147/82 H 99 06/06/19 09:27 06/06/19 11:00 06/06/19 09:27 06/06/19 09:27 06/06/19 09:27 Oxygen Delivery Method Room Air Weight: 92.896 kg Body Mass Index (BMI) 31.1 Intake and Output for Last 24 Hours 06/04/19 06/05/19 06/06/19 23:59 23:59 23:59 Intake Total 1941 1343.46 / 1343.46 Balance 1941 1343.46 / 1343.46 General: Alert, No apparent distress HEENT: Atraumatic, Normocephalic Oral: Moist Mucosa, No Gingival or Mucosal Lesions/ Ulcerations Neck: No Nodes, Thyroid Normal Size and Texture Lungs: Clear to auscultation, Normal air movement, No rhonchi, No wheeze, No rales Cardiovascular: Regular rate, Regular Rhythm, Normal S1, Normal S2, No murmurs Abdomen: Bowel Sounds Present, Soft, Non Tender, Non-Distended Extremities: No edema, No Calf Tenderness Skin: No rashes, No breakdown Psych/Mental Status: Normal Affect, Appropriate Laboratory Results 06/06/19 05:26: WBC 18.7 H, RBC 3.42 L, Hgb 10.5 L, Hct 33.0 L, MCV 96.5 H, MCH 30.7, MCHC 31.8 L, RDW Std Deviation 48.1 H, RDW Coeff of Cesar 13.5, Plt Count 318, MPV 9.3, Immature Gran % (Auto) 0.400, Neut % (Auto) 86.0 H, Lymph % (Auto) 6.0 L, [place] % (Auto) 6.9, Eos % (Auto) 0.4, Baso % (Auto) 0.3, Absolute Neuts (auto) 16.1 H, Absolute Lymphs (auto) 1.13, Nucleated RBC % 0 06/06/19 05:26: Sodium 145, Potassium 5.4 H, Chloride 119 H, Carbon Dioxide 21.0, Anion Gap 5, BUN 31 H, Creatinine 1.44 H, Estim Creat Clear Calc 37.60, Est GFR (MDRD) Af Amer 60, Est GFR (MDRD) Non-Af 50 L, BUN/Creatinine Ratio 21.5 H, Glucose 95, Calcium 7.9 L Current Medications Amlodipine Besylate (Norvasc) 5 mg PO DAILY [facility] Atorvastatin Calcium (Lipitor) 20 mg PO QHS [facility] Last Admin: 06/05/19 21:38 Dose: 20 mg Documented by: Cholecalciferol (Vitamin D) 1,000 unit PO DAILY [facility] Dextrose (D50w Syringe) 0 gm IV X1 PRN; Protocol PRN Reason: Hypoglycemia Finasteride (Proscar) 5 mg PO DAILY [facility] Glucagon () 1 mg IM .X1 PRN PRN Reason: Hypoglycemia Sodium Chloride () 1,000 mls @ 125 mls/hr IV .Q8H [facility] Last Infusion: 06/06/19 10:25 Dose: 0 mls/hr Documented by: Pantoprazole Sodium 40 mg/ (Sodium Chloride) 110 mls @ 330 mls/hr IV Q12 [facility] Last Infusion: 06/06/19 09:55 Dose: Infused Documented by: Lisinopril (Zestril) 20 mg PO DAILY [facility] Metoprolol Tartrate (Lopressor (Beta Tate)) 50 mg PO BID [facility] Last Admin: 06/05/19 21:38 Dose: 50 mg Documented by: Multivitamins/Minerals (Multivitamin With Minerals) 1 tablet PO DAILY@0800 [facility] Sodium Chloride () 10 - 40 ml IV UD PRN PRN Reason: SALINE FLUSH Medical Necessity - Tobacco Use Smoking Status: Never smoker Assessment/Plan All Active Problems (Last Updated 03/06/19 @ 11:28 by Mariana Borden) Lower GI bleed (Acute) Cellulitis of left forearm (Acute) Abrasion of left forearm (Acute) 1. Lower GI bleed * resolved * Suspect diverticular * Complicated by aspirin use, which is been held * Tentative plan from surgery, is a colonoscopy and EGD on the * Will have clear diet for now * Patient did have some further bleeding after I did evaluate him. 2. Acute blood loss anemia * Hemoglobin dropped from 13.3-10.5 * Monitor for now, no indication for transfusion 3. acute kidney injury * improved * Admission Creatinine 2.14, now down to 1.44 * Currently on IV fluids * Hold off on nephrotoxic agents * Monitor 4. VTE prophylaxis: Moderate risk. SCDs. Chemical prophylaxis contraindicated in light of the GI bleed. Code Visit Inpatient E&M: 36983 Subs Hosp L2
--- NOTE | 2019-06-06 12:51 | OP.ENDO_ITS ---
06/06/2019 Ji Myrick [address] [place] [address] Re : Colonoscopy procedure for Raghav Guillaume Dear Dr. Myrick This procedure was performed on Thursday, June 06, 2019. My impressions and recommendations are as follows: Impressions : - Blood in the terminal ileum. - Diverticulosis in the sigmoid colon and in the descending colon. - The distal rectum and anal verge are normal on retroflexion view. - No specimens collected. Recommendations : - [facility]. - Resume previous diet. - Repeat colonoscopy after studies are complete. - Continue present medications. My findings are described in the full procedure note, which is enclosed. If I can be of further assistance, please feel free to contact me at Doctor phone number(s): , Work: . Sincerely, Jeff Avery MD 06/06/2019 12:50:56 PM This report has been signed electronically.
--- NOTE | 2019-06-06 12:51 | OP.ENDO_ITS ---
06/06/2019 Ji Myrick [address] [place] [address] Re : Upper GI endoscopy procedure for Raghav Aundrea Dear Dr. Myrick This procedure was performed on Thursday, June 06, 2019. My impressions and recommendations are as follows: Impressions : - Normal examined jejunum. - Duodenitis. - Gastritis. Biopsied. - Small hiatal hernia. - Non-severe reflux esophagitis. Biopsied. Recommendations : - Await pathology results. - [facility]. - Continue present medications. My findings are described in the full procedure note, which is enclosed. If I can be of further assistance, please feel free to contact me at Doctor phone number(s): , Work: . Sincerely, Jeff Avery MD 06/06/2019 12:51:17 PM This report has been signed electronically.
[2019-06-06] MEDS: Multivitamins,Ther W-Minerals Tablet 1 TABLET PO (13:44)
[2019-06-06] MEDS: Lisinopril 20 MG Tablet PO (13:44)
[2019-06-06] MEDS: amLODIPine 5 MG Tablet PO (13:44)
[2019-06-06] MEDS: Metoprolol Tartrate 50 MG Tablet PO ×2 (13:44→21:40)
[2019-06-06] MEDS: Finasteride 5 MG Tablet PO (13:44)
[2019-06-06] MEDS: Atorvastatin Calcium 20 MG Tablet PO (21:40)
[2019-06-07] MEDS: 0.9% Normal Saline 1,000 ML 125 ML IV ×2 (01:46→10:14)
[2019-06-07 02:58] VITALS: PULSE 58
[2019-06-07 03:30] VITALS: BP 141/63; PULSE 56; RESP 16; TEMP 36.8; O2SAT 94
[2019-06-07 06:19] LABS: Absolute Lymphocyte Count 2.28 X10^3/uL (0.83-4.51); Absolute Neutrophil Count 6.2 X10^3/uL (2.0-7.7); Basophil# 0.07 X10^3/uL; Basophil% 0.7 % (0-1); Eosinophil# 0.85 X10^3/uL; Eosinophils% 8.2 % (0-5); Hematocrit 31.5 % (40-54); Hemoglobin 9.9 g/dL (13.0-16.5); Lymphocyte # 2.28 X10^3/ul (4.0); Lymphocyte % 21.9 % (19-41); Mean Corp Hgb Conc 31.4 g/dL (32-36); Mean Corpuscular Hgb 30.7 pg (27.0-32.0); Mean Corpuscular Volume 97.5 fL (80-94); Mean Platelet Vol. 9.4 fl (6.2-12.0); Monocyte# 0.94 X10^3/uL; NRBC Flagged by Analyzer 0 % (0-5); Neutrophil # 6.22 X10^3/uL (2.7-7.7); Neutrophil % 59.7 % (47-70); Platelet Count 313 K/mm3 (150-450); RBC Distribution Width CV 13.4 % (11.6-14.6); Red Blood Count 3.23 M/mm3 (4.6-6.2); White Blood Count 10.4 K/mm3 (4.4-11.0)
[2019-06-07 06:31] LABS: Anion Gap 7 (5-15); BUN 19 mg/dL (7-18); BUN/Creat Ratio 15.7 RATIO (10-20); Calcium,Total 8.1 mg/dL (8.5-10.1); Chloride 118 mmol/L (98-107); Creatinine, Serum 1.21 mg/dL (0.70-1.30); EST Glomerular Filtration Rate 61 mL/min (>60); Est Glom Filt Rate - Afr Amer 74 mL/min (>60); Estimated Creatinine Clearance 44.75 ml/min; Glucose 91 mg/dL (74-106); Potassium 4.5 mmol/L (3.5-5.1); Sodium Level 145 mmol/L (136-145)
[2019-06-07 07:35] VITALS: PULSE 54
[2019-06-07 08:21] VITALS: BP 138/50; PULSE 75; RESP 16; TEMP 36.8; O2SAT 98
[2019-06-07] MEDS: Multivitamins,Ther W-Minerals Tablet 1 TABLET PO (08:34)
[2019-06-07 10:15] VITALS: PULSE 75
[2019-06-07] MEDS: amLODIPine 5 MG Tablet PO (10:15)
[2019-06-07] MEDS: Metoprolol Tartrate 50 MG Tablet PO (10:15)
[2019-06-07] MEDS: Finasteride 5 MG Tablet PO (10:16)
[2019-06-07] MEDS: Lisinopril 20 MG Tablet PO (10:16)
--- NOTE | 2019-06-07 10:52 | PN.SURG_ITS ---
Patient Problems: Active and Suspected Problems (Last Updated 03/06/19 @ 11:28 by Mariana Borden) Lower GI bleed (Acute) - Physical Exam Vital Signs Temp Pulse Resp BP Pulse Ox 98.3 F 75 16 138/50 H 98 06/07/19 08:21 06/07/19 10:15 06/07/19 08:21 06/07/19 08:21 06/07/19 08:21 Oxygen Delivery Method Room Air Weight: 92.896 kg Body Mass Index (BMI) 31.1 Intake and Output for Last 24 Hours 06/05/19 06/06/19 06/07/19 23:59 23:59 23:59 Intake Total 1941 4093.05 / 4093.05 1375 / 1375 Balance 1941 4093.05 / 4093.05 1375 / 1375 Laboratory Tests Past 24 Hrs 06/07/19 06/07/19 05:40 05:40 WBC 10.4 RBC 3.23 L Hgb 9.9 L Hct 31.5 L MCV 97.5 H MCH 30.7 MCHC 31.4 L RDW Std Deviation 48.0 H RDW Coeff of Cesar 13.4 Plt Count 313 MPV 9.4 Immature Gran % (Auto) 0.500 Neut % (Auto) 59.7 Lymph % (Auto) 21.9 [place] % (Auto) 9.0 Eos % (Auto) 8.2 H Baso % (Auto) 0.7 Absolute Neuts (auto) 6.2 Absolute Lymphs (auto) 2.28 Nucleated RBC % 0 Sodium 145 Potassium 4.5 Chloride 118 H Carbon Dioxide 20.0 L Anion Gap 7 BUN 19 H Creatinine 1.21 Estim Creat Clear Calc 44.75 Est GFR (MDRD) Af Amer 74 Est GFR (MDRD) Non-Af 61 BUN/Creatinine Ratio 15.7 Glucose 91 Calcium 8.1 L Medical Necessity - Tobacco Use Smoking Status: Never smoker Assessment/Plan All Active Problems (Last Updated 03/06/19 @ 11:28 by Mariana Borden) Lower GI bleed (Acute) Cellulitis of left forearm (Acute) Abrasion of left forearm (Acute)
--- NOTE | 2019-06-07 11:03 | PN.SURG_ITS ---
Patient Problems: Active and Suspected Problems (Last Updated 03/06/19 @ 11:28 by Mariana Borden) Lower GI bleed (Acute) Subjective: no abdominal complaints, no signs of bleeding - Physical Exam General: Alert, Oriented x3, Cooperative Lungs: Clear to auscultation, Normal air movement Cardiovascular: Regular rate, No murmurs Abdomen: Bowel Sounds Present, Soft, Non Tender Vital Signs Temp Pulse Resp BP Pulse Ox 98.3 F 75 16 138/50 H 98 06/07/19 08:21 06/07/19 10:15 06/07/19 08:21 06/07/19 08:21 06/07/19 08:21 Oxygen Delivery Method Room Air Weight: 92.896 kg Body Mass Index (BMI) 31.1 Intake and Output for Last 24 Hours 06/05/19 06/06/19 06/07/19 23:59 23:59 23:59 Intake Total 1941 4093.05 / 4093.05 1375 / 1375 Balance 1941 4093.05 / 4093.05 1375 / 1375 Laboratory Tests Past 24 Hrs 06/07/19 06/07/19 05:40 05:40 WBC 10.4 RBC 3.23 L Hgb 9.9 L Hct 31.5 L MCV 97.5 H MCH 30.7 MCHC 31.4 L RDW Std Deviation 48.0 H RDW Coeff of Cesar 13.4 Plt Count 313 MPV 9.4 Immature Gran % (Auto) 0.500 Neut % (Auto) 59.7 Lymph % (Auto) 21.9 [place] % (Auto) 9.0 Eos % (Auto) 8.2 H Baso % (Auto) 0.7 Absolute Neuts (auto) 6.2 Absolute Lymphs (auto) 2.28 Nucleated RBC % 0 Sodium 145 Potassium 4.5 Chloride 118 H Carbon Dioxide 20.0 L Anion Gap 7 BUN 19 H Creatinine 1.21 Estim Creat Clear Calc 44.75 Est GFR (MDRD) Af Amer 74 Est GFR (MDRD) Non-Af 61 BUN/Creatinine Ratio 15.7 Glucose 91 Calcium 8.1 L Medical Necessity - Tobacco Use Smoking Status: Never smoker Assessment/Plan All Active Problems (Last Updated 03/06/19 @ 11:28 by Mariana Borden) Lower GI bleed (Acute) Cellulitis of left forearm (Acute) Abrasion of left forearm (Acute) GI bleeding EGD and Colonoscopy was performed yesterday. The patient had mild duodenitis and gastritis with no symptoms of upper GI bleeding. Colonoscopy demonstrated diverticulosis. The scope was able reinserting the terminal ileum and there was appeared to be some older blood flecks in the terminal ileum with otherwise bile-looking fluid. I suspect therefore that the patient had a small bowel bleed. The patient is doing well with no further complaints. I discussed with the patient if he has additional bleeding I would recommend he presented emerged from a bleeding scan urgently. Otherwise, I would ask the patient MY office in one week. We will discuss at that time whether we plan to perform capsule endoscopy, patient to endoscopy or just plan to expectantly manage this issue.
--- NOTE | 2019-06-07 11:17 | DCINST_ITS ---
- Discharge Diagnoses Current Active Problems: Current Active and Chronic Problems (Last Updated 03/06/19 @ 11:28 by Mariana Borden) Lower GI bleed (Acute) You will use the following diet at home:: Regular Your food should be the consistency of: Regular Your liquids should be the consistency of: Regular/Thin Discharge Activity: Return to Normal Activity Call your doctor if you observe: Fever of 101 or Higher, Shortness of breath, - - recurrent rectal bleeding or dark tarry stools Allergies/Adverse Reactions: Allergies shellfish derived Adverse Reaction (Verified 06/05/19 05:13) Nausea/Vom/Diarrhea Medications to take at Discharge Finasteride 5 mg PO DAILY 01/02/14 Metoprolol Tartrate 50 mg PO BID 01/02/14 Simvastatin 40 mg PO DAILY 01/02/14 Cholecalciferol (VIT D3) [Vitamin D3] 1,000 unit PO DAILY 07/12/18 Multivit-Min/FA/Lycopen/Lutein [Centrum Silver Tablet] 1 tab PO DAILY 07/12/18 Amlodipine Besylate/Benazepril [Amlodipine-Benazepril 5-20 mg] 1 ea PO DAILY 06/05/19 Fiber PO DAILY 06/05/19 Lactobacillus Acidophilus [Acidophilus] 1 ea PO DAILY 06/05/19 Aspirin [Adult Low Dose Aspirin EC] 81 mg PO DAILY #1 06/07/19 Primary Care Physician: Ji Myrick MD [Primary Care Provider] - Within 2 Weeks Test Results: Test results from this visit will be discussed in further detail at your follow- up appointment, if applicable. Please Follow Up With: Jeff Avery MD When: 1 week Proposed Discharge Date: 06/07/19
--- NOTE | 2019-06-07 11:18 | DS.PCM_ITS ---
Discharge Date and Diagnosis - Problem List Patient Problems: Active and Suspected Problems (Last Updated 03/06/19 @ 11:28 by Mariana Borden) Acute blood loss anemia (Acute) Lower GI bleed (Acute) Date of Admission: 06/05/19 Date of Discharge: 06/07/19 - Primary Discharge Diagnosis Active and Suspected Problems (Last Updated 03/06/19 @ 11:28 by Mariana Borden) Acute blood loss anemia (Acute) Lower GI bleed (Acute) - Secondary Discharge Diagnosis Chronic Problems (Last Updated 03/06/19 @ 11:28 by Mariana Borden) Hypertension (Chronic) Hospital Course and Treatment Jeff Avery: General surgery Operations: None Procedures: Colonoscopy, EGD Summary of Care Provided: The patient is a 83 year old M presents with a lower GI bleed. Bleeding did stop. [] 1. Lower GI bleed * resolved * Suspect diverticular * Complicated by aspirin use, which is been held * Some blood flecks noted in the terminal ileum but no overt bleeding noted on colonoscopy. EGD was unremarkable. Etiology of the GI bleed may been small bowel and patient is to follow-up with Dr. Alston as outpatient for possible capsule endoscopy. Patient will follow-up with Dr. Alston in 1 week's time. * Patient to hold aspirin until next week. 2. Acute blood loss anemia * Hemoglobin dropped from 13.3-9.9 * Monitor for now, no indication for transfusion * Start ferrous sulfate for 2 weeks 3. acute kidney injury * improved * Admission Creatinine 2.14, now down to 1.21 Patient Problems: Active and Suspected Problems (Last Updated 03/06/19 @ 11:28 by Mariana Borden) Acute blood loss anemia (Acute) Lower GI bleed (Acute) - Physical Exam General: Alert, No apparent distress HEENT: Atraumatic, Normocephalic Abdomen: Soft, Non Tender, Non-Distended Vital Signs Temp Pulse Resp BP Pulse Ox 36.8 C 75 16 138/50 H 98 06/07/19 08:21 06/07/19 10:15 06/07/19 08:21 06/07/19 08:21 06/07/19 08:21 Oxygen Delivery Method Room Air Weight: 92.896 kg Body Mass Index (BMI) 31.1 Intake and Output for Last 24 Hours 06/05/19 06/06/19 06/07/19 23:59 23:59 23:59 Intake Total 1941 4093.05 / 4093.05 1375 / 1375 Balance 1941 4093.05 / 4093.05 1375 / 1375 Laboratory Tests Past 24 Hrs 06/07/19 06/07/19 05:40 05:40 WBC 10.4 RBC 3.23 L Hgb 9.9 L Hct 31.5 L MCV 97.5 H MCH 30.7 MCHC 31.4 L RDW Std Deviation 48.0 H RDW Coeff of Cesar 13.4 Plt Count 313 MPV 9.4 Immature Gran % (Auto) 0.500 Neut % (Auto) 59.7 Lymph % (Auto) 21.9 [place]atiot % (Auto) 9.0 Eos % (Auto) 8.2 H Baso % (Auto) 0.7 Absolute Neuts (auto) 6.2 Absolute Lymphs (auto) 2.28 Nucleated RBC % 0 Sodium 145 Potassium 4.5 Chloride 118 H Carbon Dioxide 20.0 L Anion Gap 7 BUN 19 H Creatinine 1.21 Estim Creat Clear Calc 44.75 Est GFR (MDRD) Af Amer 74 Est GFR (MDRD) Non-Af 61 BUN/Creatinine Ratio 15.7 Glucose 91 Calcium 8.1 L Discharge Diet: No Restrictions Discharge Activity: Return to Normal Activity Call your doctor if you observe: Fever of 101 or Higher, Shortness of breath, - - recurrent rectal bleeding or dark tarry stools Home Medications: Medications to take at Discharge Finasteride 5 mg PO DAILY 01/02/14 Metoprolol Tartrate 50 mg PO BID 01/02/14 Simvastatin 40 mg PO DAILY 01/02/14 Cholecalciferol (VIT D3) [Vitamin D3] 1,000 unit PO DAILY 07/12/18 Multivit-Min/FA/Lycopen/Lutein [Centrum Silver Tablet] 1 tab PO DAILY 07/12/18 Amlodipine Besylate/Benazepril [Amlodipine-Benazepril 5-20 mg] 1 ea PO DAILY 06/05/19 Fiber PO DAILY 06/05/19 Lactobacillus Acidophilus [Acidophilus] 1 ea PO DAILY 06/05/19 Aspirin [Adult Low Dose Aspirin EC] 81 mg PO DAILY #1 06/07/19 Primary Care Physician: Ji Myrick MD [Primary Care Provider] - Within 2 Weeks Please Follow Up With: Jeff Avery MD When: 1 week Disposition: Home Minutes spent on discharge:: 32 Patient Condition:: Good Medical Necessity - Tobacco Use Smoking Status: Never smoker Meaningful Use Info Meaningful Use Diagnoses (Choose all that apply): None applicable Code Visit Inpatient E&M: 49561 Disch Hosp
[2019-06-07 13:31] VITALS: BP 147/58; PULSE 57; RESP 16; O2SAT 97
--- NOTE | 2019-06-07 13:53 | CASEMGMT ---
As per admitting staff mine warfare officer, pt has LW/POA, but refused to bring the documents in to the hospital. Pt said Mildred is POA. SLOANE Bryan
--- NOTE | 2019-06-08 15:29 | CASEMGMT ---
Addendum entered by Hannah John 06/08/19 15:36: Call to pt's home number and pt's answered the call at this time. states that pt is resting at this time but that he has been 'doing well and feeling good' states that pt is scheduled to see someone at PCP office tomorrow and f/u with Dr. Avery next week. states pt plans to keep appt's. states no questions regarding discharge instructions/medications at this time. states that pt has had no more bleeding. voices no further questions/concerns/needs at this time. SStaten RN MARINA Original Note: RN CM Discharge Follow-Up Phone Call. Lace: 10 Strata: 3 Discharge Date: 06/07/19 Adm Dx: Lower GIB Attempted discharge follow up phone call. No answer. Phone kept ringing and then got busy signal. Unable to leave message. POTATO INSPECTOR MARINA, Tomy, made aware. Neeta INIGUEZN RN CM
== END 2019-06-07 13:50 | disposition home or self-care (01) | DRG 378 ==
LOC: ED 06:31 → PCU 06:36
PROVIDERS: Surgery; Admitting Provider Student in an Organized Health Care Education/Training Program; Emergency Provider Emergency Medicine; Family Provider Internal Medicine; PCP Internal Medicine
PROC: 0DJD8ZZ Inspection of Lower Intestinal Tract, Via Natural or Artificial Opening Endoscopic (ICD-10-PCS; CPT 45378; principal; 2019-06-06 11:25)
DX: K57.31 Diverticulosis of large intestine without perforation or abscess with bleeding (principal); D62 Acute posthemorrhagic anemia; N17.9 Acute kidney failure, unspecified; K29.70 Gastritis, unspecified, without bleeding; K29.80 Duodenitis without bleeding; K21.0 Gastro-esophageal reflux disease with esophagitis; K44.9 Diaphragmatic hernia without obstruction or gangrene; I12.9 Hypertensive chronic kidney disease with stage 1 through stage 4 chronic kidney disease, or unspecified chronic kidney disease; N18.9 Chronic kidney disease, unspecified; E78.5 Hyperlipidemia, unspecified; N40.0 Benign prostatic hyperplasia without lower urinary tract symptoms; Z79.82 Long term (current) use of aspirin; Z79.899 Other long term (current) drug therapy
CPT/HCPCS: 36415; 80048; 80053; 85014; 85018; 85025; 85610; 86850; 86900; 86901; 88305; 88342; 93005; 99285; J7030; A4216

== ENCOUNTER → 2019-12-04 12:17 | Outpatient (CLI) | payer MEDICARE, OTHER, SELFPAY ==
[2019-12-04 12:17] VITALS: BMI 29.5
--- NOTE | 2019-12-04 12:27 | CT_ITS ---
STUDY: CT ABDOMEN AND PELVIS WITH CONTRAST REASON FOR EXAM: Male, 84 years old. LUQ TENDERNESS, FELL 1 WK AGO AND NOW HAVING LUQ PAIN, JOHN PAUL G-APPY, NICA, HERNIA REPAIR, HTN RADIATION DOSAGE (If Supplied By Facility): CTDIvol = ( 14.97 ) mGy, DLP = ( 1095.88 ) mGycm TECHNIQUE: Transaxial images were obtained from the dome of the diaphragm to the symphysis pubis without oral contrast. Oral and amp; IV Gastrografin and amp; 100mL Isovue-300 was administered. Sagittal and coronal images were reconstructed. Individualized dose optimization techniques were used for this CT. COMPARISON: None. FINDINGS: The visualized lung bases are unremarkable. The visualized portions of the heart are within normal limits. Normal liver. Small layering gallstones are seen along the dependent portion of the gallbladder lumen. There is a small spleen. There might have been prior partial resection. Anterior to the spleen, there is a 3.3 cm x 3.7 cm hypodense nodule with peripheral calcification. This may represent a calcified splenic hematoma. Clinical correlation is recommended. Normal pancreas. Normal bilateral adrenal glands. Multiple bilateral renal cysts. The dominant cyst in the posterior inferior aspect of the right kidney measures 6.5 cm x 7.3 cm. The dominant cyst in the posterior aspect of the midportion of the left kidney measures 4 cm x 4.8 cm. Normal visualized stomach. Normal small intestine. There is diverticulosis, with thickening of the colon wall, and pericolonic inflammation changes consistent with acute diverticulitis. The patient is status post appendectomy. There is diffuse atherosclerotic calcification of the abdominal aorta, without a demonstrated aneurysm. Normal inferior vena cava. Normal retroperitoneum. Normal urinary bladder. Small bilateral inguinal hernias containing fat. There are diffuse degenerative changes of the visualized lumbar spine. CT/Abdomen/Pelvis WITH Contrast IMPRESSION: Findings suggestive of partial resection of the spleen with a 3.3 cm x 3.7 cm hypodense nodule along its anterior aspect with peripheral calcification. This may represent calcification of an old splenic hematoma. Clinical correlation is recommended. Multiple bilateral renal cysts. Small layering gallstones along the dependent portion of the gallbladder. Mild degree of the sigmoid wall thickening in an area of diverticular disease suggestive of mild degree of acute diverticulitis. Electronically Signed: Srikanth Hardy, at 15:30 EST , Service support ,
[2019-12-04 12:50] LABS: Lipase 197 U/L (73-393)
== END ==
LOC: LABSPEC 12:19 → CT 12:24
PROVIDERS: PCP Internal Medicine; Referring Provider Nurse Practitioner; Visit Provider Nurse Practitioner
DX: R10.10 Upper abdominal pain, unspecified (principal); R10.812 Left upper quadrant abdominal tenderness; R11.2 Nausea with vomiting, unspecified; R07.81 Pleurodynia
CPT/HCPCS: 74177; 83690; Q9967; A4216

== ENCOUNTER 2019-12-11 07:58 | Inpatient (IN) | payer MEDICARE, OTHER, SELFPAY ==
[2019-12-04 12:17] VITALS: BMI 29.5
[2019-12-11] VITALS (19 sets, daily range): BP systolic 101–139; BP diastolic 48–68; PULSE 58–86; RESP 12–20; TEMP 36.4–36.6; O2SAT 93–99; BMI 28.5; BMI 31.6
--- NOTE | 2019-12-11 08:15 | CT_ITS ---
STUDY: CT ABDOMEN AND PELVIS WITHOUT CONTRAST REASON FOR EXAM: Male, 84 years old. LOW ABD PAIN/NAUSEA/RECTAL BLEEDING/DIZZINESS, HTN, HX-KS, SURG-NICA,APPY, HERNIA REPAIR RADIATION DOSAGE (If Supplied By Facility): CTDIvol = ( 15.30 ) mGy, DLP = ( 829.54 ) mGycm TECHNIQUE: Transaxial images were obtained from the dome of the diaphragm to the symphysis pubis with oral contrast, and without intravenous contrast. Sagittal and coronal images were reconstructed. Individualized dose optimization techniques were used for this CT. COMPARISON: 12/04/2019 FINDINGS: The visualized lung bases are unremarkable. The visualized portions of the heart are within normal limits. Normal liver. Normal gallbladder and extrahepatic biliary system. Status post splenectomy. Some splenules anterior to the tail of the pancreas. One is peripherally calcified. Normal pancreas. Normal bilateral adrenal glands. Multiple bilateral renal cysts. Largest cyst on the right is 8 cm in the posterior upper pole. Largest cyst on the left is 5 cm in the posterior upper pole. Multiple nonobstructing stones the right kidney. No hydronephrosis, ureteral stone, or ureteral dilatation. Normal visualized stomach. Normal small intestine. There are multiple colonic diverticula consistent with diverticulosis. Subtle wall thickening and stranding of surrounding fat of the proximal sigmoid colon suggestive of diverticulitis. No loculated fluid collection to suggest abscess. No pneumoperitoneum to suggest bowel perforation. There is non-visualization of the appendix. There is diffuse atherosclerotic calcification of the abdominal aorta, without a demonstrated aneurysm. Normal inferior vena cava. Normal retroperitoneum. Normal urinary bladder. Small bilateral inguinal hernias containing fat. Normal osseous structures. CT/Abdomen/Pelvis without Cont IMPRESSION: Suspect early or mild diverticulitis of the proximal sigmoid colon. No abscess or perforation. Electronically Signed: Jeff Reyna MD at 11:46 EST Tel , Service support ,
--- NOTE | 2019-12-11 08:17 | ED.VIS.GEN ---
History of Present Illness Chief Complaint: GI Bleed Informant: Patient, Significant Other Narrative: Patient states he was recently diagnosed with diverticulitis (12/04) and started on Cipro and Flagyl as well as Zofran for nausea. Patient states that 3 days before that he had vomiting and upper abdominal pains. There is no symptoms that brought him to his PCP on the . He had blood work drawn which showed a creatinine 1.67 and potassium of 5.4. White blood cell count of 20.4 with a platelet count of 485 and a hemoglobin of 12 (10/07 hemoglobin was 13.2). Those labs were done at [facility] but his lipase was performed here and was 197. CT of the abdomen pelvis was obtained which demonstrated a mild degree of sigmoid wall thickening in the area of diverticular disease suggestive of mild acute diverticulitis. Also noted were layering gallstones in the dependent portion of the gallbladder. He was seen back in the office on the with clinical dehydration received with sounds like a liter of IV fluids. He is out of his Zofran. He states that he has had diverticulitis in the past first being diagnosed 40 years ago. He states that he had gastritis last April with bleeding. He denies any abdominal surgeries in the past. However looking at prior H&P's he has had an appendectomy and a left hernia repair. He reports his last bowel movement was 6 days ago. He states he was having some dark stools. He denies any rectal bleeding. He states that since beginning the medications he has had good days and bad days. He describes a burning pain in the lower abdomen. He has not been eating or drinking very much. He is not on any blood thinners. No reported fevers. Past Medical History - Allergies and Home Meds Allergies/Adverse Reactions: Allergies shellfish derived Adverse Reaction (Verified 12/11/19 08:02) Nausea/Vom/Diarrhea Primary Care Physician: Ji Myrick MD [Primary Care Provider] - Surgical History: appendectomy, herniorrhaphy - Left inguinal Smoking Status: Never smoker - Family History Maternal Family History: Reports: No pertinent history Paternal Family History: Reports: No pertinent history Sibling Family History: Reports: Cancer - brother had bone cancer Review of Systems General: Reports: Malaise. Denies: Chills, Fever, Sweats Eyes: Denies: Visual changes - bilaterally, Diplopia ENT: Denies: Rhinorrhea, Sore throat Cardiovascular: Denies: Chest pain, Palpitations Respiratory: Denies: Dyspnea, Cough, Dyspnea on exertion Gastrointestinal: Reports: Abdominal pain, Nausea, Constipation. Denies: Vomiting, Diarrhea, Melena, Hematochezia Genitourinary: Denies: Dysuria, Hematuria, Frequency Musculoskeletal: Denies: Back pain, Extremity Pain Skin: Denies: Rash, Wounds Neurological: Denies: Headache, Weakness, Numbness Psych: Denies: Depression, Anxiety, Suicidal thoughts, Suicidal ideations Endocrine: Denies: Polyuria, Polydipsia, Heat intolerance, Cold intolerance Allergy: Denies: Swelling of the mouth, Swelling of the tongue Physical Exam Vital Signs/Narrative: Vital Signs Temp Pulse Resp BP Pulse Ox 12/11/19 08:00 97.5 F L 85 20 H 121/55 H 99 Inital Vital Signs reviewed: Yes General: Well nourished, Well developed, No Acute Distress, - - Patient appears weak and ill-appearing Head: Normocephalic, Atraumatic Eyes: Perrl, EOMI ENT: Moist mucous membranes, No rhinorrhea Neck: Supple, Nontender Cardiovascular: Regular rate, Regular rhythm, No murmurs Respiratory: No distress, CTA bilaterally, Chest nontender Abdomen: Soft, Nondistended, Normal bowel sounds, Tender Back: Nontender, Normal Inspection Extremities: Nontender, No edema Skin: No rash, Pallor Neurological: Alert, Oriented x3, Cranial nerves II-XII grossly intact, Normal Strength, Normal Sensation Psychological: Normal affect, Normal Mood ED Disposition - Plan for ED Patient: Diagnosis: Anemia, Acute kidney injury, Abdominal pain
[2019-12-11] MEDS: 0.9% Normal Saline 1,000 ML 150 ML IV ×3 (08:37→23:50)
[2019-12-11] MEDS: Ondansetron 4 MG/2 ML Vial IV ×2 (08:37→14:45)
[2019-12-11] MEDS: Morphine 2 MG/ML Syringe IV ×2 (08:37→14:45)
[2019-12-11 08:44] LABS: Absolute Lymphocyte Count 1.21 X10^3/uL (0.83-4.51); Absolute Neutrophil Count 23.1 X10^3/uL (2.0-7.7); Basophil# 0.08 X10^3/uL; Basophil% 0.3 % (0-1); Eosinophil# 0.01 X10^3/uL; Hemoglobin 9.8 g/dL (13.0-16.5); Lymphocyte # 1.21 X10^3/ul (4.0); Lymphocyte % 4.7 % (19-41); Mean Corp Hgb Conc 31.6 g/dL (32-36); Mean Corpuscular Hgb 29.3 pg (27.0-32.0); Mean Corpuscular Volume 92.5 fL (80-94); Mean Platelet Vol. 8.9 fl (6.2-12.0); Monocyte# 0.73 X10^3/uL; Monocyte% 2.9 % (0-10); NRBC Flagged by Analyzer 0 % (0-5); Neutrophil # 23.11 X10^3/uL (2.7-7.7); Neutrophil % 90.8 % (47-70); POSITIVE DIFFERENTIAL YES; Platelet Count 599 K/mm3 (150-450); RBC Distribution Width CV 14.5 % (11.6-14.6); RBC Distribution Width SD 48.6 fl (35.1-43.9); Red Blood Count 3.35 M/mm3 (4.6-6.2); White Blood Count 25.5 K/mm3 (4.4-11.0)
[2019-12-11 08:54] LABS: Differential Indicated SCAN CRITERIA MET
[2019-12-11 09:12] LABS: ALB/GLOB Ratio 0.8 RATIO (0.9-2.4); AST(SGOT) 18 U/L (15-37); Alanine Aminotransfer ALT/SGPT 15 U/L (16-61); Alkaline Phosphatase 70 U/L (45-117); Anion Gap 11 (5-15); BUN 42 mg/dL (7-18); BUN/Creat Ratio 18.1 RATIO (10-20); Calcium,Total 9.3 mg/dL (8.5-10.1); Chloride 105 mmol/L (98-107); Creatinine, Serum 2.32 mg/dL (0.70-1.30); EST Glomerular Filtration Rate 29 mL/min (>60); Est Glom Filt Rate - Afr Amer 35 mL/min (>60); Estimated Creatinine Clearance 24.47 ml/min; Globulin 3.7 g/dL (2.2-4.2); Glucose 172 mg/dL (74-106); Lipase 199 U/L (73-393); Potassium 4.6 mmol/L (3.5-5.1); Protein, Total 6.7 g/dL (6.4-8.2); Sodium Level 137 mmol/L (136-145)
[2019-12-11 09:22] LABS: Differential Comment SCANNED; Hypochromasia 1+; Platelet Estimate ADEQUATE (ADEQ)
[2019-12-11 09:25] LABS: Lactic Acid 2.9 mmol/L (0.4-1.9)
[2019-12-11] MEDS: 0.9% Normal Saline 1,000 ML 999 ML IV (09:45)
[2019-12-11 10:43] LABS: International Normalized Ratio 1.2; Partial Thromboplast Time 26.4 Seconds (24.1-36.2); Prothrombin Time (Protime)PT. 15.1 SECONDS (11.7-14.9)
--- NOTE | 2019-12-11 11:56 | RAD_ITS ---
EXAM DESCRIPTION: PORTABLE AP CHEST CLINICAL HISTORY: 84 years Male, FATIGUE, ELEVATED WBC FATIGUE, ELEVATED WBC COMPARISON: None FINDINGS: The thorax is intact. The heart and mediastinum appear to be within normal limits. The lungs appear to be well areated without evidence of pneumonic consolidation or pleural effusion. RAD/Chest 1 View (Portable) IMPRESSION: Normal portable chest. Electronically Signed: Carlos Marcia, at 13:24 EST Tel , Service support ,
[2019-12-11 12:34] LABS: Reflex Lactate? Y
[2019-12-11 12:59] LABS: Bacteria 0 SEEN /hpf (None Seen); Mucous, Urine 0 SEEN /hpf (<or=2+); Red Blood Cells-Urine 0 SEEN /hpf (0-5); Squamous Epithelial Cells - UA 0 SEEN /hpf (0-5)
[2019-12-11 13:11] LABS: Color, Urine Amber (Yellow); Glucose, Dipstick Normal (Normal); Ketone-Dipstick Negative (Negative); Leukocyte Esterase-Dipstick 25 /ul (Negative); Nitrite-Dipstick Negative (Negative); Occult Blood-Urine Negative /ul (Negative); Protein-Dipstick Negative (Negative); Urine Bilirubin Dipstick Negative (Negative); Urine Clarity Clear (Clear); Urine Urobilinogen Normal (Normal)
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
[2019-12-11 13:27] LABS: White Blood Cells 0-5 SEEN /hpf (0-5)
[2019-12-11 13:42] LABS: Lactic Acid 1.1 mmol/L (0.4-1.9)
[2019-12-11 14:27] LABS: Magnesium 2.8 mg/dL (1.6-2.6); Phosphorus 3.6 mg/dL (2.5-4.9)
[2019-12-11 14:34] LABS: Hemoglobin A1c 5.6 % (4.2-6.3)
[2019-12-11 15:01] LABS: Hematocrit 28.2 % (40-54)
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
[2019-12-11 17:25] LABS: Bedside Glucose 162 mg/dL (70-110)
[2019-12-11] MEDS: Insulin Lispro 100 UNIT/ML INSULN.PEN SC (17:28)
[2019-12-11 17:35] LABS: Urine Sodium 30 mmol/L (Not Establ.)
[2019-12-11 20:48] LABS: Hematocrit 27.1 % (40-54); Hemoglobin 8.8 g/dL (13.0-16.5)
[2019-12-11] MEDS: Metoprolol Tartrate 50 MG Tablet PO (21:15)
[2019-12-11] MEDS: Atorvastatin Calcium 20 MG Tablet PO (21:15)
[2019-12-11] MEDS: MELATONIN 3 MG TABLET PO (22:07)
[2019-12-11 23:46] LABS: Bedside Glucose 132 mg/dL (70-110)
[2019-12-12] VITALS (23 sets, daily range): BP systolic 99–156; BP diastolic 48–86; PULSE 58–87; RESP 12–18; TEMP 36.8–37.4; O2SAT 94–98
[2019-12-12 01:50] LABS: Hematocrit 25.8 % (40-54); Hemoglobin 8.4 g/dL (13.0-16.5)
[2019-12-12 04:18] LABS: Absolute Lymphocyte Count 0.98 X10^3/uL (0.83-4.51); Absolute Neutrophil Count 22.9 X10^3/uL (2.0-7.7); Basophil# 0.04 X10^3/uL; Basophil% 0.2 % (0-1); Hematocrit 25.4 % (40-54); Hemoglobin 8.1 g/dL (13.0-16.5); Lymphocyte # 0.98 X10^3/ul (4.0); Lymphocyte % 3.7 % (19-41); Mean Corp Hgb Conc 31.9 g/dL (32-36); Mean Corpuscular Hgb 29.1 pg (27.0-32.0); Mean Corpuscular Volume 91.4 fL (80-94); Mean Platelet Vol. 8.7 fl (6.2-12.0); Monocyte# 1.96 X10^3/uL; Monocyte% 7.5 % (0-10); NRBC Flagged by Analyzer 0 % (0-5); Neutrophil # 22.94 X10^3/uL (2.7-7.7); Neutrophil % 87.7 % (47-70); POSITIVE DIFFERENTIAL YES; Platelet Count 539 K/mm3 (150-450); RBC Distribution Width SD 49.9 fl (35.1-43.9); Red Blood Count 2.78 M/mm3 (4.6-6.2); White Blood Count 26.2 K/mm3 (4.4-11.0)
[2019-12-12] MEDS: oxyCODONE 5 MG Tablet PO (04:18)
[2019-12-12 04:20] LABS: Differential Indicated SCAN CRITERIA MET
[2019-12-12 04:35] LABS: Differential Comment SCANNED; Platelet Estimate MOD INC (ADEQ); Red Cell Morphology NORM C+C NORMAL (NORM C&C)
[2019-12-12 04:42] LABS: ALB/GLOB Ratio 0.7 RATIO (0.9-2.4); AST(SGOT) 14 U/L (15-37); Alanine Aminotransfer ALT/SGPT 14 U/L (16-61); Albumin, Serum 2.2 g/dL (3.2-5.0); Alkaline Phosphatase 52 U/L (45-117); Anion Gap 6 (5-15); BUN 39 mg/dL (7-18); BUN/Creat Ratio 19.6 RATIO (10-20); Calcium,Total 7.8 mg/dL (8.5-10.1); Chloride 112 mmol/L (98-107); Creatinine, Serum 1.99 mg/dL (0.70-1.30); EST Glomerular Filtration Rate 34 mL/min (>60); Est Glom Filt Rate - Afr Amer 41 mL/min (>60); Estimated Creatinine Clearance 27.63 ml/min; Globulin 3.3 g/dL (2.2-4.2); Glucose 128 mg/dL (74-106); Potassium 5.2 mmol/L (3.5-5.1); Protein, Total 5.5 g/dL (6.4-8.2); Sodium Level 139 mmol/L (136-145)
[2019-12-12 05:25] LABS: Bedside Glucose 133 mg/dL (70-110)
[2019-12-12] MEDS: 0.9% Normal Saline 1,000 ML 150 ML IV (06:40)
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
[2019-12-12] MEDS: Lactated Ringers 1,000 ML 100 ML IV ×2 (08:32→17:41)
--- NOTE | 2019-12-12 09:16 | PCM.PN.SRG ---
Patient Problems: Active and Suspected Problems (Last Reviewed 12/11/19 @ 15:[address] Ronnell Tracy MD) Anemia (Acute) Acute kidney injury (Acute) Abdominal pain (Acute) Severe sepsis (Acute) Diverticulitis (Acute) GI bleed (Acute) MAIA (acute kidney injury) (Acute) Subjective: Patient evaluated resting very comfortably in bed. He states he has his personality back. He notes over night the pain in the LUQ has greatly improved. He denies pain in the LLQ. He denies nausea, vomiting, bright red blood per rectum or melena. He notes urinating blood. He denies bloating or distention of his abdomen. He has tolerated clear liquids. - Physical Exam Vitals/I&O's: Vital Signs Temp Pulse Resp BP Pulse Ox 99.1 F 71 16 127/60 H 95 12/12/19 08:00 12/12/19 09:00 12/12/19 09:00 12/12/19 09:00 12/12/19 09:00 Oxygen Delivery Method Room Air Weight: 229 lb 15.074 oz Body Mass Index (BMI) 31.6 Intake and Output for Last 24 Hours 12/10/19 12/11/19 12/12/19 23:59 23:59 23:59 Intake Total 3440 / 3760 1775 / 1775 Balance 3440 / 3760 1775 / 1775 General: Alert, Oriented x3, Cooperative Abdomen: Non Tender, Hypoactive Bowel Sounds, Distended Laboratory Results 12/11/19 08:31: Differential Comment SCANNED, Platelet Estimate ADEQUATE, Hypochromasia 1+ 12/11/19 08:31: PT 15.1 H, INR 1.2, APTT 26.4 12/11/19 08:31: Lactic Acid 2.9 H* 12/11/19 08:31: Phosphorus 3.6, Magnesium 2.8 H 12/11/19 08:31: Hemoglobin A1c 5.6 12/11/19 12:50: Urine Color Melanie, Urine Clarity Clear, Urine pH 5.0, Ur Specific [place] 1.020, Urine Protein Negative, Urine Glucose (UA) Normal, Urine Ketones Negative, Urine Occult Blood Negative, Urine Nitrite Negative, Urine Bilirubin Negative, Urine Urobilinogen Normal, Ur Leukocyte Esterase 25 H, Urine RBC 0 SEEN, Urine WBC 0-5 SEEN, Ur Squamous Epith Cells 0 SEEN, Urine Bacteria 0 SEEN, Urine Mucus 0 SEEN 12/11/19 13:15: Lactic Acid 1.1 12/11/19 14:20: Blood Type O POSITIVE, Antibody Screen NEGATIVE 12/11/19 14:50: Hgb 9.0 L, Hct 28.2 L 12/11/19 17:15: Urine Creatinine 74.20 12/11/19 17:15: Ur Random Sodium 30 12/11/19 17:22: POC Glucose 162 H 12/11/19 20:35: Hgb 8.8 L, Hct 27.1 L 12/11/19 23:39: POC Glucose 132 H 12/12/19 01:45: Hgb 8.4 L, Hct 25.8 L 12/12/19 04:05: WBC 26.2 H, RBC 2.78 L, Hgb 8.1 L, Hct 25.4 L, MCV 91.4, MCH 29.1, MCHC 31.9 L, RDW Std Deviation 49.9 H, RDW Coeff of Cesar 15.0 H, Plt Count 539 H, MPV 8.7, Immature Gran % (Auto) 0.900, Neut % (Auto) 87.7 H, Lymph % (Auto) 3.7 L, [place] % (Auto) 7.5, Eos % (Auto) 0.0, Baso % (Auto) 0.2, Absolute Neuts (auto) 22.9 H, Absolute Lymphs (auto) 0.98, Nucleated RBC % 0, Differential Comment SCANNED, Platelet Estimate MOD INC, RBC Morphology NORM C+C 12/12/19 04:05: Sodium 139, Potassium 5.2 H, Chloride 112 H, Carbon Dioxide 21.0, Anion Gap 6, BUN 39 H, Creatinine 1.99 H, Estim Creat Clear Calc 27.63, Est GFR (MDRD) Af Amer 41 L, Est GFR (MDRD) Non-Af 34 L, BUN/Creatinine Ratio 19.6, Glucose 128 H, Calcium 7.8 L, Total Bilirubin 0.40, AST 14 L, ALT 14 L, Alkaline Phosphatase 52, Total Protein 5.5 L, Albumin 2.2 L, Globulin 3.3, Albumin/Globulin Ratio 0.7 L 12/12/19 05:14: POC Glucose 133 H Current Medications Acetaminophen (Tylenol) 650 mg PO Q6H PRN PRN PRN Reason: Pain Score 1-10/Temp > 100.7 F Albuterol Sulfate (Ventolin Aerosols) 2.5 mg INHALATION Q2H PRN PRN PRN Reason: SOB/Wheezing Atorvastatin Calcium (Lipitor) 20 mg PO QHS [facility] Last Admin: 12/11/19 21:15 Dose: 20 mg Documented by: Cholecalciferol (Vitamin D (25mcg)) 1,000 unit PO DAILY [facility] Ferrous Sulfate (Ferrous Sulfate) 325 mg PO DAILY@1200 [facility] Finasteride (Proscar) 5 mg PO DAILY [facility] Glucagon () 1 mg IM .X1 PRN PRN Reason: Hypoglycemia Guaifenesin (Robitussin) 10 ml PO Q4H PRN PRN PRN Reason: COUGH Hydralazine HCl (Apresoline Iv) 10 mg IV Q4H PRN PRN PRN Reason: SBP > 160 Piperacillin Sod/Tazobactam (Sod 3.375 gm/ Sodium Chloride) 50 mls @ 12.5 mls/hr IV Q8 [facility] Last Admin: 12/12/19 05:14 Dose: 12.5 mls/hr Documented by: Pantoprazole Sodium 40 mg/ (Sodium Chloride) 110 mls @ 330 mls/hr IV Q12 [facility] Last Infusion: 12/11/19 21:35 Dose: Infused Documented by: Dextrose (Dextrose 10%-Water) 250 mls @ 999 mls/hr IV .Q16M PRN; Protocol PRN Reason: HYPOGLYCEMIA Sodium Chloride () 250 mls @ 15 mls/hr IV .[id number] PRN PRN Reason: Saline Flush Sodium Chloride () 250 mls @ 15 mls/hr IV .[id number] PRN PRN Reason: Additional IVPB Infusion Lactated Ringer's () 1,000 mls @ 100 mls/hr IV .Q10H [facility] Last Admin: 12/12/19 08:32 Dose: 100 mls/hr Documented by: Insulin Human Lispro (Humalog Kwikpen (Bkc)) 0 unit SC Q6 [facility]; Protocol Last Admin: 12/12/19 05:15 Dose: Not Given Documented by: Lactobacillus Acidophilus (Acidophilus) 1 tablet PO BID [facility] Last Admin: 12/11/19 21:15 Dose: 1 tablet Documented by: Metoprolol Tartrate (Lopressor (Beta Tate)) 50 mg PO BID [facility] Last Admin: 12/11/19 21:15 Dose: 50 mg Documented by: Ondansetron HCl (Zofran) 4 mg IV Q8H PRN PRN PRN Reason: NAUSEA/VOMITING Last Admin: 12/11/19 14:45 Dose: 4 mg Documented by: Oxycodone HCl (Oxyir) 5 mg PO Q4H PRN PRN PRN Reason: Pain Score 4-5/10 Last Admin: 12/12/19 04:18 Dose: 5 mg Documented by: Prochlorperazine Edisylate (Compazine Iv) 5 mg IV Q4H PRN PRN PRN Reason: Breakthrough Nausea/Vomiting Sodium Chloride () 10 - 40 ml IV UD PRN PRN Reason: SALINE FLUSH Throat Lozenges (Cepacol Sore Throat Lozenge) 1 lozenge MUCOUS MEM Q2H PRN PRN PRN Reason: SORE THROAT Medical Necessity - Tobacco Use Smoking Status: Never smoker Tobacco Use: Non-smoker Assessment/Plan All Active Problems (Last Reviewed 12/11/19 @ 15:[address] Ronnell Tracy MD) Anemia (Acute) Acute kidney injury (Acute) Abdominal pain (Acute) Severe sepsis (Acute) Diverticulitis (Acute) GI bleed (Acute) MAIA (acute kidney injury) (Acute) Acute blood loss anemia (Acute) Lower GI bleed (Acute) Cellulitis of left forearm (Acute) Abrasion of left forearm (Acute) I am following this patient in conjunction with Dr. Tracy Impression: LUQ pain probable gastritis. Diverticulitis- no pain/discomfort. Continue PPI at 40 mg orally once discharged Discontinue antibiotics for diverticulitis at discharge Increase diet to full liquids, if tolerates increase to regular Hgb stable Not recommending scopes at this time Follow-up with Dr. Tracy 2 weeks after discharge We will sign off at this point Thank you for allowing us to participate in this patient's care. Code Visit Inpatient E&M: 94809 [facility] Hosp L1
--- NOTE | 2019-12-12 09:32 | CASEMGMT ---
RN CM Assessment Note Presentation: severe sepsis, diverticulitis Intro role of CM and purpose of RN CM assessment to patient and his . Pt is awake, alert and able to participate in assessment. Demographics, PCP and Pharmacy verified. Pt and state he is independent @ home, no DME use, drives and plan is to return home on discharge. Pt had recent fall, PT/OT ordered. PCP: Dr. Myrick Specialists: Dr. Tracy, GI current in hospital. Pt denies seeing specialists in community Preferred Pharmacy: [facility] Pharmacy Insurance: [facility] Prescription Benefit: yes LNOK: Living Arrangements: Lives in one [facility]. No care needs identified. Pt states he is independent. Transportation: drives DME: none HHC/SNF: none in past Patient DC goals: Home DC PLAN: anticipate home on dc. PT/OT evaluations pending. Sussy INIGUEZN RN ACM
[2019-12-12] MEDS: Metoprolol Tartrate 50 MG Tablet PO ×2 (09:39→21:03)
[2019-12-12] MEDS: Finasteride 5 MG Tablet PO (09:40)
[2019-12-12] MEDS: Ferrous Sulfate 325 MG Tablet PO (13:12)
[2019-12-12 14:42] LABS: Pathologist Review Reviewed
--- NOTE | 2019-12-12 15:26 | CHAPLAIN ---
Type of Pastoral Visit _x__ Initial Visit ___ Follow-up Visit ___ On-call Visit ___ General Patient Visit ___ Spiritual Assessment ___ Family Conference ___ Bereavement ___ Rapid Response ___ Code Blue ___ Other (describe below) Pastoral Care Referral From _x__ Patient ___ Family ___ Nurse ___ Physician ___ Die Cast Patternmaker ___ Technology Support Analyst ___ Other (describe below) Sacrament/Intervention _x__ Active listening ___ Anointing ___ Christianity ___ Bereavement ___ Communion ___ Misti exploration ___ _x__ Life review _x__ Prayer ___ Reconciliation ___ Sacrament of Sick _x__ Supportive presence ___ Wedding ___ Other (describe below) Pastoral Comments patient remembered meeting this exhibits manager in previous admission and requested emotional support and prayer for his recovery
--- NOTE | 2019-12-12 18:16 | PN_ITS ---
Patient Problems: Active and Suspected Problems (Last Reviewed 12/11/19 @ 15:[address] Ronnell Tracy MD) Anemia (Acute) Acute kidney injury (Acute) Abdominal pain (Acute) Severe sepsis (Acute) Diverticulitis (Acute) GI bleed (Acute) MAIA (acute kidney injury) (Acute) Subjective: Patient was seen and examined today in the ICU, he is alert and does not appear to be in any distress, he is not complaining of any abdominal pain and he has no complaints of any chest pain or shortness of breath. Patient's white blood cell count this morning was 26.2, hemoglobin was 8.1. Patient's electrolytes were notable for a potassium of 5.2, BUN of 39, a creatinine of 1.99. Patient appears stable for transfer to PCU. - Physical Exam Vitals/I&O's: Vital Signs Temp Pulse Resp BP Pulse Ox 99.3 F H 63 18 125/52 H 94 12/12/19 13:04 12/12/19 15:17 12/12/19 13:04 12/12/19 15:00 12/12/19 15:00 Oxygen Delivery Method Room Air Weight: 104.3 kg Body Mass Index (BMI) 31.6 Intake and Output for Last 24 Hours 12/10/19 12/11/19 12/12/19 23:59 23:59 23:59 Intake Total 3440 / 3760 2900 / 2900 Balance 3440 / 3760 2900 / 2900 General: Alert, Oriented x3, Cooperative, No apparent distress, Well developed HEENT: Atraumatic, PERRLA, EOMI, Normocephalic Oral: Moist Mucosa Neck: Supple, No JVD, Trachea Midline, Thyroid Normal Size and Texture Lungs: Clear to auscultation, Normal air movement, No rhonchi, No wheeze, No rales Cardiovascular: Regular rate, Regular Rhythm, Normal S1, Normal S2, No murmurs, PMI Normal, No rub noted Abdomen: Bowel Sounds Present, Soft, Non Tender, Non-Distended Extremities: No clubbing, No cyanosis, No edema, Capillary Refill Less than 3 Seconds Skin: No rashes, No breakdown Musculoskeletal: No Tenderness to Palpation of Joints or Extremities Neurological: Cranial nerves II-XII grossly intact, Neuro grossly intact, Sensory exam intact to light touch and pain, Coordination normal Psych/Mental Status: Normal Affect, Appropriate, Alert and oriented to time, place, person, mood and affect Microbiology Past 72 Hours 12/12/19 13:00 Stool Stool Occult Blood (SOMMER) - Final Occult Blood Positive Laboratory Results 12/11/19 20:35: Hgb 8.8 L, Hct 27.1 L 12/11/19 23:39: POC Glucose 132 H 12/12/19 01:45: Hgb 8.4 L, Hct 25.8 L 12/12/19 04:05: WBC 26.2 H, RBC 2.78 L, Hgb 8.1 L, Hct 25.4 L, MCV 91.4, MCH 29.1, MCHC 31.9 L, RDW Std Deviation 49.9 H, RDW Coeff of Cesar 15.0 H, Plt Count 539 H, MPV 8.7, Immature Gran % (Auto) 0.900, Neut % (Auto) 87.7 H, Lymph % (Auto) 3.7 L, [place] % (Auto) 7.5, Eos % (Auto) 0.0, Baso % (Auto) 0.2, Absolute Neuts (auto) 22.9 H, Absolute Lymphs (auto) 0.98, Nucleated RBC % 0, Differential Comment SCANNED, Diff Path Review Reviewed, Platelet Estimate MOD INC, RBC Morphology NORM C+C 12/12/19 04:05: Sodium 139, Potassium 5.2 H, Chloride 112 H, Carbon Dioxide 21.0, Anion Gap 6, BUN 39 H, Creatinine 1.99 H, Estim Creat Clear Calc 27.63, Est GFR (MDRD) Af Amer 41 L, Est GFR (MDRD) Non-Af 34 L, BUN/Creatinine Ratio 19.6, Glucose 128 H, Calcium 7.8 L, Total Bilirubin 0.40, AST 14 L, ALT 14 L, Alkaline Phosphatase 52, Total Protein 5.5 L, Albumin 2.2 L, Globulin 3.3, Albumin/Globulin Ratio 0.7 L 12/12/19 05:14: POC Glucose 133 H Current Medications Acetaminophen (Tylenol) 650 mg PO Q6H PRN PRN PRN Reason: Pain Score 1-10/Temp > 100.7 F Albuterol Sulfate (Ventolin Aerosols) 2.5 mg INHALATION Q2H PRN PRN PRN Reason: SOB/Wheezing Atorvastatin Calcium (Lipitor) 20 mg PO QHS [facility] Last Admin: 12/11/19 21:15 Dose: 20 mg Documented by: Cholecalciferol (Vitamin D (25mcg)) 1,000 unit PO DAILY [facility] Last Admin: 12/12/19 09:39 Dose: 1,000 unit Documented by: Ferrous Sulfate (Ferrous Sulfate) 325 mg PO DAILY@1200 [facility] Last Admin: 12/12/19 13:12 Dose: 325 mg Documented by: Finasteride (Proscar) 5 mg PO DAILY [facility] Last Admin: 12/12/19 09:40 Dose: 5 mg Documented by: Glucagon () 1 mg IM .X1 PRN PRN Reason: Hypoglycemia Guaifenesin (Robitussin) 10 ml PO Q4H PRN PRN PRN Reason: COUGH Piperacillin Sod/Tazobactam (Sod 3.375 gm/ Sodium Chloride) 50 mls @ 12.5 mls/hr IV Q8 [facility] Last Infusion: 12/12/19 17:12 Dose: Infused Documented by: Pantoprazole Sodium 40 mg/ (Sodium Chloride) 110 mls @ 330 mls/hr IV Q12 [facility] Last Infusion: 12/12/19 09:59 Dose: Infused Documented by: Sodium Chloride () 250 mls @ 15 mls/hr IV .[id number] PRN PRN Reason: Saline Flush Sodium Chloride () 250 mls @ 15 mls/hr IV .[id number] PRN PRN Reason: Additional IVPB Infusion Lactated Ringer's () 1,000 mls @ 100 mls/hr IV .Q10H [facility] Last Admin: 12/12/19 17:41 Dose: 100 mls/hr Documented by: Lactobacillus Acidophilus (Acidophilus) 1 tablet PO BID [facility] Last Admin: 12/12/19 09:39 Dose: 1 tablet Documented by: Metoprolol Tartrate (Lopressor (Beta Tate)) 50 mg PO BID [facility] Last Admin: 12/12/19 09:39 Dose: 50 mg Documented by: Ondansetron HCl (Zofran) 4 mg IV Q8H PRN PRN PRN Reason: NAUSEA/VOMITING Last Admin: 12/11/19 14:45 Dose: 4 mg Documented by: Oxycodone HCl (Oxyir) 5 mg PO Q4H PRN PRN PRN Reason: Pain Score 4-5/10 Last Admin: 12/12/19 04:18 Dose: 5 mg Documented by: Sodium Chloride () 10 - 40 ml IV UD PRN PRN Reason: SALINE FLUSH Throat Lozenges (Cepacol Sore Throat Lozenge) 1 lozenge MUCOUS MEM Q2H PRN PRN PRN Reason: SORE THROAT Medical Necessity - Tobacco Use Smoking Status: Never smoker Tobacco Use: Non-smoker Assessment/Plan All Active Problems (Last Reviewed 12/11/19 @ 15:[address] Ronnell Tracy MD) Anemia (Acute) Acute kidney injury (Acute) Abdominal pain (Acute) Severe sepsis (Acute) Diverticulitis (Acute) GI bleed (Acute) MAIA (acute kidney injury) (Acute) Acute blood loss anemia (Acute) Lower GI bleed (Acute) Cellulitis of left forearm (Resolved) Abrasion of left forearm (Resolved) #1 acute severe sepsis secondary to acute diverticulitis-patient will remain on his present antibiotic coverage, he is on full liquid diet at this time, general surgery is participating in his care, pulmonary medicine saw the patient today and I reviewed their input. #2 acute kidney injury on a backdrop of chronic kidney disease stage III- patient's creatinine has improved since yesterday, repeat labs tomorrow #3 essential hypertension #4 anemia-possibly secondary to GI blood loss, monitor hemoglobin, serum iron will be ordered #5 hyperlipidemia #6 cerebrovascular disease #7 acute diverticulitis Code Visit Inpatient E&M: 80192 Subs Hosp L2
[2019-12-12] MEDS: Atorvastatin Calcium 20 MG Tablet PO (21:03)
[2019-12-12] MEDS: MELATONIN 3 MG TABLET PO (21:03)
[2019-12-13] VITALS (12 sets, daily range): BP systolic 131–148; BP diastolic 61–73; PULSE 59–93; RESP 16–20; TEMP 36.9–37.1; O2SAT 96–98
[2019-12-13] MEDS: Lactated Ringers 1,000 ML 100 ML IV ×2 (03:22→14:35)
[2019-12-13 03:54] LABS: Absolute Lymphocyte Count 1.81 X10^3/uL (0.83-4.51); Absolute Neutrophil Count 19.1 X10^3/uL (2.0-7.7); Basophil# 0.07 X10^3/uL; Basophil% 0.3 % (0-1); Eosinophils% 1.7 % (0-5); Hematocrit 25.4 % (40-54); Hemoglobin 8.1 g/dL (13.0-16.5); Lymphocyte # 1.81 X10^3/ul (4.0); Lymphocyte % 7.7 % (19-41); Mean Corp Hgb Conc 31.9 g/dL (32-36); Mean Corpuscular Hgb 29.6 pg (27.0-32.0); Mean Corpuscular Volume 92.7 fL (80-94); Mean Platelet Vol. 8.8 fl (6.2-12.0); Monocyte# 2.03 X10^3/uL; Monocyte% 8.6 % (0-10); NRBC Flagged by Analyzer 0 % (0-5); Neutrophil % 80.8 % (47-70); POSITIVE DIFFERENTIAL YES; Platelet Count 539 K/mm3 (150-450); RBC Distribution Width CV 15.5 % (11.6-14.6); RBC Distribution Width SD 52.3 fl (35.1-43.9); Red Blood Count 2.74 M/mm3 (4.6-6.2); White Blood Count 23.6 K/mm3 (4.4-11.0)
[2019-12-13 03:59] LABS: Differential Indicated SCAN CRITERIA MET
[2019-12-13 04:17] LABS: ALB/GLOB Ratio 0.7 RATIO (0.9-2.4); AST(SGOT) 14 U/L (15-37); Alanine Aminotransfer ALT/SGPT 14 U/L (16-61); Albumin, Serum 2.3 g/dL (3.2-5.0); Alkaline Phosphatase 55 U/L (45-117); Anion Gap 3 (5-15); BUN 34 mg/dL (7-18); BUN/Creat Ratio 19.2 RATIO (10-20); Chloride 111 mmol/L (98-107); Creatinine, Serum 1.77 mg/dL (0.70-1.30); Differential Comment SCANNED; EST Glomerular Filtration Rate 39 mL/min (>60); Est Glom Filt Rate - Afr Amer 47 mL/min (>60); Estimated Creatinine Clearance 31.07 ml/min; Globulin 3.5 g/dL (2.2-4.2); Glucose 103 mg/dL (74-106); Iron 10 ug/dL (65-175); Iron Binding Capacity,Total 199 ug/dL (250-450); Potassium 4.3 mmol/L (3.5-5.1); Protein, Total 5.8 g/dL (6.4-8.2); Sodium Level 139 mmol/L (136-145)
[2019-12-13 04:18] LABS: Platelet Estimate MOD INC (ADEQ); Reactive Lymphocyte RARE
[2019-12-13] MEDS: Metoprolol Tartrate 50 MG Tablet PO ×2 (08:35→21:14)
[2019-12-13] MEDS: Finasteride 5 MG Tablet PO (08:36)
--- NOTE | 2019-12-13 09:32 | PN.SURG_ITS ---
Patient Problems: Active and Suspected Problems (Last Reviewed 12/11/19 @ 15:[address] Ronnell Tracy MD) Anemia (Acute) Acute kidney injury (Acute) Abdominal pain (Acute) Severe sepsis (Acute) Diverticulitis (Acute) GI bleed (Acute) MAIA (acute kidney injury) (Acute) Subjective: Patient is evaluated resting comfortably in bed. He is tolerating a regular diet. He denies nausea, vomiting. He denies abdominal pain with eating. He notes multiple episodes of dark diarrhea over night. He notes an episode of stool incontinence. Stool was sent for occult blood which returned positive. He denies abdominal pain. - Physical Exam Vitals/I&O's: Vital Signs Temp Pulse Resp BP Pulse Ox 98.7 F 93 18 134/62 H 96 12/13/19 03:35 12/13/19 08:35 12/13/19 03:35 12/13/19 03:35 12/13/19 03:35 Oxygen Delivery Method Room Air Weight: 229 lb 4.492 oz Body Mass Index (BMI) 31.6 Intake and Output for Last 24 Hours 12/11/19 12/12/19 12/13/19 23:59 23:59 23:59 Intake Total 3440 / 3760 3667.5 / 4147.5 1200.83 / 1200.83 Balance 3440 / 3760 3667.5 / 4147.5 1200.83 / 1200.83 General: Alert, Oriented x3, Cooperative Abdomen: Bowel Sounds Present, Soft, Non Tender, Non-Distended Microbiology Past 72 Hours 12/12/19 13:00 Stool Stool Occult Blood (SOMMER) - Final Occult Blood Positive Laboratory Results 12/12/19 04:05: Diff Path Review Reviewed 12/13/19 03:40: WBC 23.6 H, RBC 2.74 L, Hgb 8.1 L, Hct 25.4 L, MCV 92.7, MCH 29.6, MCHC 31.9 L, RDW Std Deviation 52.3 H, RDW Coeff of Cesar 15.5 H, Plt Count 539 H, MPV 8.8, Immature Gran % (Auto) 0.900, Neut % (Auto) 80.8 H, Lymph % (Auto) 7.7 L, [place] % (Auto) 8.6, Eos % (Auto) 1.7, Baso % (Auto) 0.3, Absolute Neuts (auto) 19.1 H, Absolute Lymphs (auto) 1.81, Nucleated RBC % 0, Differential Comment SCANNED, Diff Path Review May foll, Reactive Lymphocytes RARE, Platelet Estimate MOD INC 12/13/19 03:40: Sodium 139, Potassium 4.3, Chloride 111 H, Carbon Dioxide 25.0, Anion Gap 3 L, BUN 34 H, Creatinine 1.77 H, Estim Creat Clear Calc 31.07, Est GFR (MDRD) Af Amer 47 L, Est GFR (MDRD) Non-Af 39 L, BUN/Creatinine Ratio 19.2, Glucose 103, Calcium 8.0 L, Iron 10 L, TIBC 199 L, Iron Saturation 5.0 L, Total Bilirubin 0.30, AST 14 L, ALT 14 L, Alkaline Phosphatase 55, Total Protein 5.8 L , Albumin 2.3 L, Globulin 3.5, Albumin/Globulin Ratio 0.7 L Current Medications Acetaminophen (Tylenol) 650 mg PO Q6H PRN PRN PRN Reason: Pain Score 1-10/Temp > 100.7 F Albuterol Sulfate (Ventolin Aerosols) 2.5 mg INHALATION Q2H PRN PRN PRN Reason: SOB/Wheezing Atorvastatin Calcium (Lipitor) 20 mg PO QHS [facility] Last Admin: 12/12/19 21:03 Dose: 20 mg Documented by: Cholecalciferol (Vitamin D (25mcg)) 1,000 unit PO DAILY [facility] Last Admin: 12/13/19 08:36 Dose: 1,000 unit Documented by: Ferrous Sulfate (Ferrous Sulfate) 325 mg PO DAILY@1200 [facility] Last Admin: 12/12/19 13:12 Dose: 325 mg Documented by: Finasteride (Proscar) 5 mg PO DAILY [facility] Last Admin: 12/13/19 08:36 Dose: 5 mg Documented by: Glucagon () 1 mg IM .X1 PRN PRN Reason: Hypoglycemia Guaifenesin (Robitussin) 10 ml PO Q4H PRN PRN PRN Reason: COUGH Piperacillin Sod/Tazobactam (Sod 3.375 gm/ Sodium Chloride) 50 mls @ 12.5 mls/hr IV Q8 [facility] Last Admin: 12/13/19 05:46 Dose: 12.5 mls/hr Documented by: Pantoprazole Sodium 40 mg/ (Sodium Chloride) 110 mls @ 330 mls/hr IV Q12 [facility] Last Infusion: 12/12/19 21:21 Dose: Infused Documented by: Sodium Chloride () 250 mls @ 15 mls/hr IV .[id number] PRN PRN Reason: Saline Flush Sodium Chloride () 250 mls @ 15 mls/hr IV .[id number] PRN PRN Reason: Additional IVPB Infusion Lactated Ringer's () 1,000 mls @ 100 mls/hr IV .Q10H [facility] Last Infusion: 12/13/19 05:46 Dose: 100 mls/hr Documented by: Lactobacillus Acidophilus (Acidophilus) 1 tablet PO BID [facility] Last Admin: 12/13/19 08:36 Dose: 1 tablet Documented by: Melatonin (Melatonin) 3 mg PO QHS [facility] Last Admin: 12/12/19 21:03 Dose: 3 mg Documented by: Metoprolol Tartrate (Lopressor (Beta Tate)) 50 mg PO BID [facility] Last Admin: 12/13/19 08:35 Dose: 50 mg Documented by: Ondansetron HCl (Zofran) 4 mg IV Q8H PRN PRN PRN Reason: NAUSEA/VOMITING Last Admin: 12/11/19 14:45 Dose: 4 mg Documented by: Oxycodone HCl (Oxyir) 5 mg PO Q4H PRN PRN PRN Reason: Pain Score 4-5/10 Last Admin: 12/12/19 04:18 Dose: 5 mg Documented by: Sodium Chloride () 10 - 40 ml IV UD PRN PRN Reason: SALINE FLUSH Throat Lozenges (Cepacol Sore Throat Lozenge) 1 lozenge MUCOUS MEM Q2H PRN PRN PRN Reason: SORE THROAT Medical Necessity - Tobacco Use Smoking Status: Never smoker Tobacco Use: Non-smoker Assessment/Plan All Active Problems (Last Reviewed 12/11/19 @ 15:[address] Ronnell Tracy MD) Anemia (Acute) Acute kidney injury (Acute) Abdominal pain (Acute) Severe sepsis (Acute) Diverticulitis (Acute) GI bleed (Acute) MAIA (acute kidney injury) (Acute) Acute blood loss anemia (Acute) Lower GI bleed (Acute) Cellulitis of left forearm (Resolved) Abrasion of left forearm (Resolved) I am following this patient in conjunction with Dr. Tracy Impression: LUQ pain probable gastritis. Diverticulitis- no pain/discomfort. Continue PPI at 40 mg orally once discharged Continue regular diet Hgb stable Not recommending scopes at this time Continued elevated WBC. Seems as though diverticulitis is resolving. Continue antibiotics We will continue to monitor this patient Code Visit Inpatient E&M: 54783 Subs Hosp L1
[2019-12-13 10:46] LABS: Pathologist Review Reviewed
[2019-12-13] MEDS: Acetaminophen 325 MG Tablet 650 MG PO (11:11)
[2019-12-13] MEDS: oxyCODONE 5 MG Tablet PO (11:11)
[2019-12-13] MEDS: Ferrous Sulfate 325 MG Tablet PO (11:11)
--- NOTE | 2019-12-13 14:21 | CASEMGMT ---
Addendum entered by Hattie David 12/13/19 15:05: Script obtained for OP therapy and given to pt at this time. Original Note: JOSELO GRAY NOTE: Informed that pt interested in HHC. PT/OT evals reviewed and no further therapy is recommmded. To room to talk with pt. Introduced self and role of JOSELO GRAY. at bedside and voicing concerns, stating, 'I just don't know how things are going to go. Discussed HHC with them and informed of [facility]'s guidelines for being homebound. Pt states he is not homebound and is interested in OP therapy. He states he would like a script for it and then will decide once he returns home if he feels he needs it. Pt/ aware they can take the script to any OP therapy location of their choice. They voice understanding. CM to obtain script for OP therapy and give to pt once it is available. Neeta ROWLEY RN, CM
--- NOTE | 2019-12-13 16:55 | PCM.PROGNOTE ---
Patient Problems: Active and Suspected Problems (Last Reviewed 12/11/19 @ 15:[address] Ronnell Tracy MD) Anemia (Acute) Acute kidney injury (Acute) Abdominal pain (Acute) Severe sepsis (Acute) Diverticulitis (Acute) GI bleed (Acute) MAIA (acute kidney injury) (Acute) Subjective: Patient was seen and examined today in the ICU, he voices no complaints of any abdominal pain, he states he had several bowel movements yesterday. Patient denies any shortness of breath or chest discomfort. Patient's white blood cell count is still elevated however, creatinine is improved over yesterday. - Physical Exam Vitals/I&O's: Vital Signs Temp Pulse Resp BP Pulse Ox 98.8 F 73 16 131/61 H 98 12/13/19 15:30 12/13/19 15:30 12/13/19 15:30 12/13/19 15:30 12/13/19 15:30 Oxygen Delivery Method Room Air Weight: 104 kg Body Mass Index (BMI) 31.6 Intake and Output for Last 24 Hours 12/11/19 12/12/19 12/13/19 23:59 23:59 23:59 Intake Total 3440 / 3760 3667.5 / 4147.5 2590.83 / 2590.83 Balance 3440 / 3760 3667.5 / 4147.5 2590.83 / 2590.83 General: Alert, Oriented x3, Cooperative, No apparent distress, Well developed HEENT: Atraumatic, PERRLA, EOMI, Normocephalic Oral: Moist Mucosa Neck: Supple, No JVD, Negative Carotid Bruits, Trachea Midline, Thyroid Normal Size and Texture Lungs: Clear to auscultation, Normal air movement, No rhonchi, No wheeze, No rales Cardiovascular: Regular rate, Regular Rhythm, Normal S1, Normal S2, No murmurs Abdomen: Bowel Sounds Present, Soft, Non Tender, Non-Distended Extremities: No clubbing, No cyanosis, No edema, Capillary Refill Less than 3 Seconds Skin: No rashes, No breakdown Musculoskeletal: No Tenderness to Palpation of Joints or Extremities Neurological: Cranial nerves II-XII grossly intact, Neuro grossly intact, Sensory exam intact to light touch and pain, Coordination normal Psych/Mental Status: Normal Affect, Appropriate, Alert and oriented to time, place, person, mood and affect Microbiology Past 72 Hours 12/12/19 13:00 Stool Stool Occult Blood (SOMMER) - Final Occult Blood Positive Laboratory Results 12/13/19 03:40: WBC 23.6 H, RBC 2.74 L, Hgb 8.1 L, Hct 25.4 L, MCV 92.7, MCH 29.6, MCHC 31.9 L, RDW Std Deviation 52.3 H, RDW Coeff of Cesar 15.5 H, Plt Count 539 H, MPV 8.8, Immature Gran % (Auto) 0.900, Neut % (Auto) 80.8 H, Lymph % (Auto) 7.7 L, [place] % (Auto) 8.6, Eos % (Auto) 1.7, Baso % (Auto) 0.3, Absolute Neuts (auto) 19.1 H, Absolute Lymphs (auto) 1.81, Nucleated RBC % 0, Differential Comment SCANNED, Diff Path Review Reviewed, Reactive Lymphocytes RARE, Platelet Estimate MOD INC 12/13/19 03:40: Sodium 139, Potassium 4.3, Chloride 111 H, Carbon Dioxide 25.0, Anion Gap 3 L, BUN 34 H, Creatinine 1.77 H, Estim Creat Clear Calc 31.07, Est GFR (MDRD) Af Amer 47 L, Est GFR (MDRD) Non-Af 39 L, BUN/Creatinine Ratio 19.2, Glucose 103, Calcium 8.0 L, Iron 10 L, TIBC 199 L, Iron Saturation 5.0 L, Total Bilirubin 0.30, AST 14 L, ALT 14 L, Alkaline Phosphatase 55, Total Protein 5.8 L, Albumin 2.3 L, Globulin 3.5, Albumin/Globulin Ratio 0.7 L Current Medications Acetaminophen (Tylenol) 650 mg PO Q6H PRN PRN PRN Reason: Pain Score 1-10/Temp > 100.7 F Last Admin: 12/13/19 11:11 Dose: 650 mg Documented by: Albuterol Sulfate (Ventolin Aerosols) 2.5 mg INHALATION Q2H PRN PRN PRN Reason: SOB/Wheezing Atorvastatin Calcium (Lipitor) 20 mg PO QHS [facility] Last Admin: 12/12/19 21:03 Dose: 20 mg Documented by: Cholecalciferol (Vitamin D (25mcg)) 1,000 unit PO DAILY [facility] Last Admin: 12/13/19 08:36 Dose: 1,000 unit Documented by: Ferrous Sulfate (Ferrous Sulfate) 325 mg PO DAILY@1200 [facility] Last Admin: 12/13/19 11:11 Dose: 325 mg Documented by: Finasteride (Proscar) 5 mg PO DAILY [facility] Last Admin: 12/13/19 08:36 Dose: 5 mg Documented by: Glucagon () 1 mg IM .X1 PRN PRN Reason: Hypoglycemia Guaifenesin (Robitussin) 10 ml PO Q4H PRN PRN PRN Reason: COUGH Piperacillin Sod/Tazobactam (Sod 3.375 gm/ Sodium Chloride) 50 mls @ 12.5 mls/hr IV Q8 [facility] Last Admin: 12/13/19 14:36 Dose: 12.5 mls/hr Documented by: Pantoprazole Sodium 40 mg/ (Sodium Chloride) 110 mls @ 330 mls/hr IV Q12 [facility] Last Infusion: 12/13/19 11:13 Dose: Infused Documented by: Sodium Chloride () 250 mls @ 15 mls/hr IV .[id number] PRN PRN Reason: Saline Flush Sodium Chloride () 250 mls @ 15 mls/hr IV .[id number] PRN PRN Reason: Additional IVPB Infusion Lactated Ringer's () 1,000 mls @ 100 mls/hr IV .Q10H [facility] Last Admin: 12/13/19 14:35 Dose: 100 mls/hr Documented by: Lactobacillus Acidophilus (Acidophilus) 1 tablet PO BID [facility] Last Admin: 12/13/19 08:36 Dose: 1 tablet Documented by: Melatonin (Melatonin) 3 mg PO QHS [facility] Last Admin: 12/12/19 21:03 Dose: 3 mg Documented by: Metoprolol Tartrate (Lopressor (Beta Tate)) 50 mg PO BID [facility] Last Admin: 12/13/19 08:35 Dose: 50 mg Documented by: Ondansetron HCl (Zofran) 4 mg IV Q8H PRN PRN PRN Reason: NAUSEA/VOMITING Last Admin: 12/11/19 14:45 Dose: 4 mg Documented by: Oxycodone HCl (Oxyir) 5 mg PO Q4H PRN PRN PRN Reason: Pain Score 4-5/10 Last Admin: 12/13/19 11:11 Dose: 5 mg Documented by: Sodium Chloride () 10 - 40 ml IV UD PRN PRN Reason: SALINE FLUSH Throat Lozenges (Cepacol Sore Throat Lozenge) 1 lozenge MUCOUS MEM Q2H PRN PRN PRN Reason: SORE THROAT Medical Necessity - Tobacco Use Smoking Status: Never smoker Tobacco Use: Non-smoker Assessment/Plan All Active Problems (Last Reviewed 12/11/19 @ 15:[address] Ronnell Tracy MD) Anemia (Acute) Acute kidney injury (Acute) Abdominal pain (Acute) Severe sepsis (Acute) Diverticulitis (Acute) GI bleed (Acute) MAAI (acute kidney injury) (Acute) Acute blood loss anemia (Acute) Lower GI bleed (Acute) Cellulitis of left forearm (Resolved) Abrasion of left forearm (Resolved) #1 acute severe sepsis secondary to acute diverticulitis-patient will remain on his present antibiotic coverage, his diet was advanced, patient is being seen by general surgery #2 acute kidney injury on a backdrop of chronic kidney disease stage III-patient's creatinine has improved since yesterday, repeat labs tomorrow #3 essential hypertension #4 anemia-iron deficiency in nature, patient was given Venofer today, I will repeat it tomorrow #5 hyperlipidemia #6 cerebrovascular disease #7 acute diverticulitis Code Visit Inpatient E&M: 03079 Subs Hosp L2
[2019-12-13] MEDS: Ondansetron 4 MG/2 ML Vial IV (17:45)
[2019-12-13] MEDS: MELATONIN 3 MG TABLET PO (21:14)
[2019-12-13] MEDS: Atorvastatin Calcium 20 MG Tablet PO (21:14)
[2019-12-14] VITALS (9 sets, daily range): BP systolic 138–151; BP diastolic 54–68; PULSE 56–84; RESP 18; TEMP 36.6–36.9; O2SAT 93–98
[2019-12-14] MEDS: Lactated Ringers 1,000 ML 100 ML IV (00:23)
[2019-12-14] MEDS: Metoprolol Tartrate 50 MG Tablet PO (08:47)
[2019-12-14] MEDS: Finasteride 5 MG Tablet PO (08:48)
[2019-12-14 09:12] LABS: Absolute Lymphocyte Count 1.64 X10^3/uL (0.83-4.51); Absolute Neutrophil Count 13.4 X10^3/uL (2.0-7.7); Basophil# 0.11 X10^3/uL; Basophil% 0.6 % (0-1); Eosinophil# 0.76 X10^3/uL; Eosinophils% 4.5 % (0-5); Hematocrit 26.3 % (40-54); Hemoglobin 8.2 g/dL (13.0-16.5); Lymphocyte # 1.64 X10^3/ul (4.0); Lymphocyte % 9.6 % (19-41); Mean Corp Hgb Conc 31.2 g/dL (32-36); Mean Corpuscular Hgb 28.8 pg (27.0-32.0); Mean Corpuscular Volume 92.3 fL (80-94); Mean Platelet Vol. 8.9 fl (6.2-12.0); Monocyte# 0.93 X10^3/uL; Monocyte% 5.5 % (0-10); NRBC Flagged by Analyzer 0 % (0-5); Neutrophil # 13.41 X10^3/uL (2.7-7.7); Neutrophil % 78.9 % (47-70); Platelet Count 565 K/mm3 (150-450); RBC Distribution Width CV 15.5 % (11.6-14.6); RBC Distribution Width SD 51.9 fl (35.1-43.9); Red Blood Count 2.85 M/mm3 (4.6-6.2)
[2019-12-14 09:20] LABS: Anion Gap 5 (5-15); BUN 17 mg/dL (7-18); BUN/Creat Ratio 12.1 RATIO (10-20); Calcium,Total 8.1 mg/dL (8.5-10.1); Chloride 110 mmol/L (98-107); Creatinine, Serum 1.41 mg/dL (0.70-1.30); EST Glomerular Filtration Rate 51 mL/min (>60); Est Glom Filt Rate - Afr Amer 62 mL/min (>60); Glucose 157 mg/dL (74-106); Sodium Level 140 mmol/L (136-145)
--- NOTE | 2019-12-14 09:20 | PCM.PN.SRG ---
Patient Problems: Active and Suspected Problems (Last Reviewed 12/11/19 @ 15:[address] Ronnell Tracy MD) Anemia (Acute) Acute kidney injury (Acute) Abdominal pain (Acute) Severe sepsis (Acute) Diverticulitis (Acute) GI bleed (Acute) MAIA (acute kidney injury) (Acute) Subjective: Patient evaluated resting comfortably in bed. He denies nausea, vomiting. His diarrhea has slowed down. He is tolerating a regular diet. He denies abdominal pain. - Physical Exam Vitals/I&O's: Vital Signs Temp Pulse Resp BP Pulse Ox 98.4 F 79 18 144/54 H 96 12/14/19 08:35 12/14/19 08:47 12/14/19 08:35 12/14/19 08:47 12/14/19 08:35 Oxygen Delivery Method Room Air Weight: 230 lb 13.184 oz Body Mass Index (BMI) 31.6 Intake and Output for Last 24 Hours 12/12/19 12/13/19 12/14/19 23:59 23:59 23:59 Intake Total 3667.5 / 4147.5 3953.96 / 4193.96 426.87 / 426.87 Balance 3667.5 / 4147.5 3953.96 / 4193.96 426.87 / 426.87 General: Alert, Oriented x3, Cooperative Abdomen: Bowel Sounds Present, Soft, Non Tender Microbiology Past 72 Hours 12/12/19 13:00 Stool Stool Occult Blood (SOMMER) - Final Occult Blood Positive Laboratory Results 12/13/19 03:40: Diff Path Review Reviewed 12/14/19 09:00: WBC 17.0 H, RBC 2.85 L, Hgb 8.2 L, Hct 26.3 L, MCV 92.3, MCH 28.8, MCHC 31.2 L, RDW Std Deviation 51.9 H, RDW Coeff of Cesar 15.5 H, Plt Count 565 H, MPV 8.9, Immature Gran % (Auto) 0.900, Neut % (Auto) 78.9 H, Lymph % (Auto) 9.6 L, [place] % (Auto) 5.5, Eos % (Auto) 4.5, Baso % (Auto) 0.6, Absolute Neuts (auto) 13.4 H, Absolute Lymphs (auto) 1.64, Nucleated RBC % 0 12/14/19 09:00: Sodium 140, Potassium 4.0, Chloride 110 H, Carbon Dioxide 25.0, Anion Gap 5, BUN 17, Creatinine 1.41 H, Estim Creat Clear Calc 39.00, Est GFR (MDRD) Af Amer 62, Est GFR (MDRD) Non-Af 51 L, BUN/Creatinine Ratio 12.1, Glucose 157 H, Calcium 8.1 L Current Medications Acetaminophen (Tylenol) 650 mg PO Q6H PRN PRN PRN Reason: Pain Score 1-10/Temp > 100.7 F Last Admin: 12/13/19 11:11 Dose: 650 mg Documented by: Albuterol Sulfate (Ventolin Aerosols) 2.5 mg INHALATION Q2H PRN PRN PRN Reason: SOB/Wheezing Atorvastatin Calcium (Lipitor) 20 mg PO QHS [facility] Last Admin: 12/13/19 21:14 Dose: 20 mg Documented by: Cholecalciferol (Vitamin D (25mcg)) 1,000 unit PO DAILY [facility] Last Admin: 12/14/19 08:46 Dose: 1,000 unit Documented by: Ferrous Sulfate (Ferrous Sulfate) 325 mg PO DAILY@1200 [facility] Last Admin: 12/13/19 11:11 Dose: 325 mg Documented by: Finasteride (Proscar) 5 mg PO DAILY [facility] Last Admin: 12/14/19 08:48 Dose: 5 mg Documented by: Glucagon () 1 mg IM .X1 PRN PRN Reason: Hypoglycemia Guaifenesin (Robitussin) 10 ml PO Q4H PRN PRN PRN Reason: COUGH Piperacillin Sod/Tazobactam (Sod 3.375 gm/ Sodium Chloride) 50 mls @ 12.5 mls/hr IV Q8 [facility] Last Admin: 12/14/19 05:00 Dose: 12.5 mls/hr Documented by: Pantoprazole Sodium 40 mg/ (Sodium Chloride) 110 mls @ 330 mls/hr IV Q12 [facility] Last Admin: 12/14/19 08:48 Dose: 330 mls/hr Documented by: Sodium Chloride () 250 mls @ 15 mls/hr IV .[id number] PRN PRN Reason: Saline Flush Sodium Chloride () 250 mls @ 15 mls/hr IV .[id number] PRN PRN Reason: Additional IVPB Infusion Lactated Ringer's () 1,000 mls @ 100 mls/hr IV .Q10H [facility] Last Admin: 12/14/19 00:23 Dose: 100 mls/hr Documented by: Lactobacillus Acidophilus (Acidophilus) 1 tablet PO BID [facility] Last Admin: 12/14/19 08:47 Dose: 1 tablet Documented by: Melatonin (Melatonin) 3 mg PO QHS [facility] Last Admin: 12/13/19 21:14 Dose: 3 mg Documented by: Metoprolol Tartrate (Lopressor (Beta Tate)) 50 mg PO BID [facility] Last Admin: 12/14/19 08:47 Dose: 50 mg Documented by: Ondansetron HCl (Zofran) 4 mg IV Q8H PRN PRN PRN Reason: NAUSEA/VOMITING Last Admin: 12/13/19 17:45 Dose: 4 mg Documented by: Oxycodone HCl (Oxyir) 5 mg PO Q4H PRN PRN PRN Reason: Pain Score 4-5/10 Last Admin: 12/13/19 11:11 Dose: 5 mg Documented by: Sodium Chloride () 10 - 40 ml IV UD PRN PRN Reason: SALINE FLUSH Throat Lozenges (Cepacol Sore Throat Lozenge) 1 lozenge MUCOUS MEM Q2H PRN PRN PRN Reason: SORE THROAT Medical Necessity - Tobacco Use Smoking Status: Never smoker Tobacco Use: Non-smoker Assessment/Plan All Active Problems (Last Reviewed 12/11/19 @ 15:[address] Ronnell Tracy MD) Anemia (Acute) Acute kidney injury (Acute) Abdominal pain (Acute) Severe sepsis (Acute) Diverticulitis (Acute) GI bleed (Acute) MAIA (acute kidney injury) (Acute) Acute blood loss anemia (Acute) Lower GI bleed (Acute) Cellulitis of left forearm (Resolved) Abrasion of left forearm (Resolved) I am following this patient in conjunction with Dr. Tracy Impression: LUQ pain probable gastritis. Diverticulitis- no pain/discomfort. Continue PPI at 40 mg orally once discharged Continue regular diet Hgb stable Not recommending scopes at this time Continue antibiotics Patient ready for discharge Code Visit Inpatient E&M: 96009 [facility] Hosp L1
[2019-12-14] MEDS: Ferrous Sulfate 325 MG Tablet PO (11:46)
--- NOTE | 2019-12-14 11:57 | DCINST_ITS ---
- Discharge Diagnoses Current Active Problems: Current Active and Chronic Problems (Last Reviewed 12/11/19 @ 15:[address] Ronnell Tracy MD) Anemia (Acute) Acute kidney injury (Acute) Abdominal pain (Acute) Severe sepsis (Acute) Diverticulitis (Acute) GI bleed (Acute) MAIA (acute kidney injury) (Acute) HLD (hyperlipidemia) (Chronic) CKD (chronic kidney disease), stage III (Chronic) History of CVA (cerebrovascular accident) (Chronic) BPH (benign prostatic hyperplasia) (Chronic) Iron deficiency anemia (Chronic) GERD (gastroesophageal reflux disease) (Chronic) History of GI bleed (Chronic) You will use the following diet at home:: No restrictions Your food should be the consistency of: Regular Your liquids should be the consistency of: Regular/Thin Discharge Activity: Return to Normal Activity Weight Bearing Status: Full weight bearing Allergies/Adverse Reactions: Allergies shellfish derived Adverse Reaction (Verified 12/11/19 08:02) Nausea/Vom/Diarrhea Medications to take at Discharge Finasteride 5 mg PO DAILY 01/02/14 Metoprolol Tartrate 50 mg PO BID 01/02/14 Simvastatin 40 mg PO DAILY 01/02/14 Cholecalciferol (VIT D3) [Vitamin D3] 1,000 unit PO DAILY 07/12/18 Multivit-Min/FA/Lycopen/Lutein [Centrum Silver Tablet] 1 tab PO DAILY 07/12/18 Amlodipine Besylate/Benazepril [Amlodipine-Benazepril 5-20 mg] 1 ea PO DAILY 06/05/19 Lactobacillus Acidophilus [Acidophilus] 1 ea PO DAILY 06/05/19 Ferrous Sulfate 325 mg PO DAILY #14 tab 06/07/19 Amoxicillin/Potassium Clav [Augmentin 875-125 Tablet] 1 ea PO BIDCM #13 tab 12/14/19 The following prescriptions were given: Amoxicillin/Potassium Clav [Augmentin 875-125 Tablet] 1 ea PO BIDCM #13 tab Transmission Status: Pending to [facility]/pharmacy #[id number] Primary Care Physician: Ji Myrick MD [Primary Care Provider] - Please follow up with your Primary Care Physician in: in 1-2 weeks Test Results: Test results from this visit will be discussed in further detail at your follow- up appointment, if applicable. Please Follow Up With: Ronnell Tracy MD When: in 7-10 days
--- NOTE | 2019-12-15 16:14 | CASEMGMT ---
DC DATE: 12.14.2019 DC DISPOSITION: Home DC DIAGNOSIS: Anemia, MAIA LACE/STRATA: 3 Attempted call to patient's home phone. No answer and no message machine with name identifier. Sussy INIGUEZN RN ACM
--- NOTE | 2019-12-17 09:07 | DS.PCM_ITS ---
Discharge Date and Diagnosis Date of Admission: 12/11/19 Date of Discharge: 01/12/20 - Primary Discharge Diagnosis 1 acute severe sepsis secondary to acute diverticulitis #2 acute kidney injury on a backdrop of chronic kidney disease stage III #3 essential hypertension #4 anemia-iron deficiency in nature #5 hyperlipidemia #6 cerebrovascular disease #7 acute diverticulitis-failed outpatient treatment - Secondary Discharge Diagnosis Chronic Problems (Last Reviewed 12/11/19 @ 15:[address] Ronnell Tracy MD) HLD (hyperlipidemia) (Chronic) CKD (chronic kidney disease), stage III (Chronic) History of CVA (cerebrovascular accident) (Chronic) BPH (benign prostatic hyperplasia) (Chronic) Iron deficiency anemia (Chronic) GERD (gastroesophageal reflux disease) (Chronic) History of GI bleed (Chronic) Hypertension (Chronic) Hospital Course and Treatment Operations: None Procedures: None Summary of Care Provided: The patient is a 84 year old M who was seen in the emergency room at [facility] with a chief complaint of pain over his lower abdominal area. Patient been diagnosed as an outpatient several days before with diverticulitis and had started on Cipro and Flagyl. Patient also complained of nausea, dizziness, and he denied any rectal bleeding. Work-up in the emergency room included a CT of the abdomen and pelvis which showed signs of early or mild diverticulitis of the proximal sigmoid colon. No abscess or perforation was noted. Lab work obtained showed an elevated white blood cell count at 25.5, lactic acid was elevated at 2.9, creatinine was elevated at 2.32. Patient was admitted to the ICU for severe sepsis due to acute diverticulitis, he was placed on IV antibiotics and seen in consultation by general surgery. Over the next several days patient's white blood cell count declined and he became less symptomatic. It was felt that he did not require surgery. On 12/14/2019, patient was seen and examined: On examination he appeared in good health and spirits. Vital signs as documented. Skin warm and dry and without overt rashes. Neck without JVD. Lungs clear. Heart exam notable for regular rhythm, normal sounds and absence of murmurs, rubs or gallops. Abdomen unremarkable and without evidence of organomegaly, masses, or abdominal aortic enlargement. Extremities nonedematous. Neuro: Cranial nerves II through XII are grossly intact, no focal motor deficits were noted, sensation to light touch and pinprick intact. Psych: Patient is alert and oriented x3, he does not appear anxious or depressed Patient was seen and examined on 12/14/2019 and felt to be stable for discharge home. - Physical Exam Vitals/I&O's: Vital Signs Temp Pulse Resp BP Pulse Ox 98.1 F 76 18 151/68 H 96 12/14/19 13:27 12/14/19 13:27 12/14/19 13:27 12/14/19 13:27 12/14/19 08:35 Oxygen Delivery Method Room Air Weight: 104.7 kg Body Mass Index (BMI) 31.6 Discharge Activity: Return to Normal Activity Weight Bearing Status: Full weight bearing Home Medications: Medications to take at Discharge Finasteride 5 mg PO DAILY 01/02/14 Metoprolol Tartrate 50 mg PO BID 01/02/14 Simvastatin 40 mg PO DAILY 01/02/14 Cholecalciferol (VIT D3) [Vitamin D3] 1,000 unit PO DAILY 07/12/18 Multivit-Min/FA/Lycopen/Lutein [Centrum Silver Tablet] 1 tab PO DAILY 07/12/18 Amlodipine Besylate/Benazepril [Amlodipine-Benazepril 5-20 mg] 1 ea PO DAILY 06/05/19 Lactobacillus Acidophilus [Acidophilus] 1 ea PO DAILY 06/05/19 Ferrous Sulfate 325 mg PO DAILY #14 tab 06/07/19 Amoxicillin/Potassium Clav [Augmentin 875-125 Tablet] 1 ea PO BIDCM #13 tab 12/14/19 Following Prescrptions Were Given to Patient: Amoxicillin/Potassium Clav [Augmentin 875-125 Tablet] 1 ea PO BIDCM #13 tab Transmission Status: Received by [facility]/pharmacy #[id number] Primary Care Physician: Ji Myrick MD [Primary Care Provider] - Please follow up with your Primary Care Physician in: in 1-2 weeks Please Follow Up With: Ronnell Tracy MD When: in 7-10 days Disposition: Home Minutes spent on discharge:: 31 Patient Condition:: Stable Medical Necessity - Tobacco Use Smoking Status: Never smoker Tobacco Use: Non-smoker Meaningful Use Info Meaningful Use Diagnoses (Choose all that apply): None applicable Code Visit Inpatient E&M: 33357 Disch Hosp
== END 2019-12-14 14:00 | disposition home or self-care (01) | DRG 872 ==
LOC: ED 08:41 → ICU 13:35
PROVIDERS: Admitting Provider Family Medicine; Emergency Provider Emergency Medicine; PCP Internal Medicine; Visit Provider Internal Medicine
DX: A41.9 Sepsis, unspecified organism (principal); N17.9 Acute kidney failure, unspecified; K57.32 Diverticulitis of large intestine without perforation or abscess without bleeding; R65.20 Severe sepsis without septic shock; N18.3 Chronic kidney disease, stage 3 (moderate); I12.9 Hypertensive chronic kidney disease with stage 1 through stage 4 chronic kidney disease, or unspecified chronic kidney disease; E78.5 Hyperlipidemia, unspecified; D50.9 Iron deficiency anemia, unspecified; I67.9 Cerebrovascular disease, unspecified; K21.9 Gastro-esophageal reflux disease without esophagitis; N40.0 Benign prostatic hyperplasia without lower urinary tract symptoms; Z86.73 Personal history of transient ischemic attack (TIA), and cerebral infarction without residual deficits
CPT/HCPCS: 71045; 74176; 80048; 80053; 81001; 82274; 82570; 82962; 83036; 83540; 83550; 83605; 83690; 83735; 84100; 84300; 85014; 85018; 85025; 85610; 85730; 86850; 86900; 86901; 97162; 97166; 97530; 97802; 99251; 99285; J1756; J7030; J7120; A4216; G0463; J2405

== ENCOUNTER → 2021-05-06 09:56 | Outpatient (CLI) | payer MEDICARE, OTHER, SELFPAY ==
[2019-12-22 13:04] VITALS: BMI 31.6
[2021-05-06 10:31] LABS: Hematocrit 42.5 % (40-54); Hemoglobin 13.5 g/dL (13.0-16.5); Mean Corp Hgb Conc 31.8 g/dL (32-36); Mean Corpuscular Hgb 29.6 pg (27.0-32.0); Mean Corpuscular Volume 93.2 fL (80-94); Mean Platelet Vol. 8.7 fl (6.2-12.0); Platelet Count 408 K/mm3 (150-450); RBC Distribution Width CV 13.6 % (11.6-14.6); RBC Distribution Width SD 46.5 fl (35.1-43.9); Red Blood Count 4.56 M/mm3 (4.6-6.2); White Blood Count 12.7 K/mm3 (4.4-11.0)
[2021-05-06 11:15] LABS: Anion Gap 5 (5-15); BUN 26 mg/dL (7-18); BUN/Creat Ratio 13.9 RATIO (10-20); Calcium,Total 9.2 mg/dL (8.5-10.1); Chloride 107 mmol/L (98-107); Creatinine, Serum 1.87 mg/dL (0.70-1.30); EST Glomerular Filtration Rate 37 mL/min (>60); Est Glom Filt Rate - Afr Amer 44 mL/min (>60); Glucose 97 mg/dL (74-106); Potassium 4.5 mmol/L (3.5-5.1); Sodium Level 138 mmol/L (136-145)
== END ==
PROVIDERS: PCP Internal Medicine; Referring Provider Urology; Visit Provider Urology
DX: Z01.812 Encounter for preprocedural laboratory examination (principal); I10 Essential (primary) hypertension; D64.9 Anemia, unspecified
CPT/HCPCS: 36415; 80048; 85027

== ENCOUNTER → 2021-05-13 08:34 | Outpatient (CLI) | payer MEDICARE, OTHER, SELFPAY ==
[2019-12-22 13:04] VITALS: BMI 31.6
--- NOTE | 2021-05-13 08:36 | EKG12_ITS ---
Test Reason : PREOP Blood Pressure : / mmHG Vent. Rate : 050 BPM Atrial Rate : 050 BPM P-R Int : 208 ms QRS Dur : 090 ms QT Int : 442 ms P-R-T Axes : 058 044 058 degrees QTc Int : 402 ms Sinus bradycardia with sinus arrhythmia Otherwise normal ECG Confirmed by JARRETT ESGUNDO, JERO ([id number]), material expeditor JOYCE DE LA FUENTE ([id number]) on 05/14/2021 1:17:32 PM Referred By: Brandon Lock Confirmed By:JERO FARIAS MD
== END ==
PROVIDERS: PCP Internal Medicine; Referring Provider Urology; Visit Provider Urology
DX: Z01.812 Encounter for preprocedural laboratory examination (principal)
CPT/HCPCS: 93005

== ENCOUNTER → 2021-05-15 13:51 | Outpatient (CLI) | payer MEDICARE, OTHER, SELFPAY ==
[2019-12-22 13:04] VITALS: BMI 31.6
== END ==
PROVIDERS: PCP Internal Medicine; Referring Provider Urology; Visit Provider Urology
DX: Z03.818 Encounter for observation for suspected exposure to other biological agents ruled out (principal)
CPT/HCPCS: 87426; C9803

== ENCOUNTER → 2021-05-23 | Outpatient (CLI) | payer MEDICARE, OTHER, SELFPAY ==
[2019-12-22 13:04] VITALS: BMI 31.6
--- NOTE | 2021-05-23 | IMM_PTH ---
PATIENT: JEANIE STAPLETON I LOC: [facility] U#:[id number] AGE/SX: 85/M ROOM: RE05/23/[address]: Dr. Brandon Lock MD : 1935 BED: DIS: 05/23/2021 SPEC #: [id number] RECD: 05/28/21 15:17 STATUS: NENITA REQ #: [id number] TOM: 05/23/21 00:[address]: Brandon Lock DEPT: IMMUNOHISTOCHEMISTRY RECD BY: Lisa Burnett ENTERED: 05/28/21 15:18 SP TYPE: IMMUNO OTHR DR: Dr. Ji Myrick MD Tissues: Left testis Procedures: CD30 (add) CD31 (add) SYDNIE (add) FACTOR VIII (add) Pankeratin (initial) GATA3 (add) P40 (add) PHYSICIAN & INSTITUTION [place] [id number] SPECIMEN INFORMATION: Tissue Source: Left testicle mass Clinical Info: Disorder of genital organs Specimen Number: [id number] CPT code: 21975, 51265 x6 METHODOLOGY: Deparaffinized sections of prefer/formalin-fixed tissue or PAP/DQ stained slides are incubated with monoclonal/polyclonal antibodies/oligonucleotide probes. Localization is made via biotin free immunoperoxidase method. Appropriate controls are performed and reacted as expected. Results on target cell population are indicated in the following table: RESULTS: ANTIBODY / CLONE RESULT AE1-3 (AE1/AE3/PCK26) negative GATA3 (L50-823) negative CD30 (Kenny-H2) negative CD31 (FILI/70A) * Factor VIII (R Ag) * P40 (BC28) negative SYDNIE (E29) negative These tests were developed and their performance characteristics determined by [facility]. They may not have been cleared or approved by the U.S. Food and Drug Administration. The FDA has determined that such clearance or approval is not necessary. The above immunohistochemical/dualISH markers are ordered and reviewed by the Pathologist. 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 AM:[place] 05/29/2021 *?Inconclusive staining. Case has been reviewed in consultation with Dr. Jon who concurs with the above diagnosis. IDC:[id number]
--- NOTE | 2021-05-23 | TEST_PTH ---
PATIENT: JEANIE STAPLETON I LOC: [facility] U#:[id number] AGE/SX: 85/M ROOM: RE05/23/[address]: Dr. Brandon Lock MD : 1935 BED: DIS: 05/23/2021 SPEC #: [id number] RECD: 05/23/21 15:03 STATUS: NENITA REKhai #: [id number] TOM: 05/23/21 00:[address]: Brandon Lock DEPT: SURGICAL PATHOLOGY RECD BY: Jacob Gauthier ENTERED: 05/26/21 08:05 SP TYPE: TESTICLE OTHR DR: Dr. Ji Myrick MD [facility] Tissues: Testis, NOS Procedures: Special Stain Group II PAS Stain (control) Surgery Specimen Level HEADER OPERATION: Left radical orchiectomy PRE-OP DIAGNOSIS: Disorder of genital organs TISSUE SUBMITTED: Left testicle mass MICROSCOPIC DIAGNOSIS Left testicle, orchiectomy: Seminoma. See cancer checklist below. AM:[place] 05/28/2021 COMMENT TESTIS - RADICAL ORCHIECTOMY CANCER SUMMARY: Specimen type - radical orchiectomy Specimen laterality - left Tumor focality - unifocal Tumor Size ? 8.5 x 5.5 x 5 cm Histologic type - seminoma Tumor extension ? tumor invades tunica albuginea, epididymis, hilar soft tissue & one vessel wall, focally. Margins: Spermatic cord margin ? Uninvolved by tumor Other margins ? Uninvolved by tumor Lymphvascular invasion ? Focally suspected. Regional lymph nodes ? no lymph nodes submitted or found. Additional pathologic findings ? tumor necrosis present. PATHOLOGIC STAGE: T2 Nx Mx The above summary is in compliance with [employer] (CAP) Cancer Protocols Checklist and [place] [employer] Committee on Cancer (AJCC), Staging Manual, 8th Ed. PAS stain with matched control highlights tumor cells. MICROSCOPIC DESCRIPTION Slides are reviewed. GROSS DESCRIPTION Received in fixative is one container labeled with the patient's name and designated left testis. The specimen consists of a testis measuring 8.5 x 5.5 x 5 cm and weighing 127 gm. The presumed margin of resection is inked in black ink. An area measuring 3.5 x 3 cm off the testicular parenchyma appears to be without its membranous covering. The remainder of the specimen is inked in black ink. Serial sections reveal the entire testis to be replaced by a lobulated pink-white, firm mass in which there are chalky, yellow areas of discoloration ranging in size from 1 to 2 cm. No distinct structures resembling epididymis or rete testes are identified. The specimen is left for additional fixation. / AM:[place] 05/26/21 Note, sections are submitted after additional fixation as follows: 1-3 ? tumor in relationship to presumed margin of resection, 4-7 ? tumor in area without membranous covering, 8-15 ? underwriting account representative sections of tumor. 16 ? spermatic cord at margin, 17-18 remainder of spermatic cord. / AM:[place] 05/27/21 TC:0 CPT: 49751, 30397
== END | disposition home or self-care (01) ==
LOC: LABSPEC 15:16
PROVIDERS: PCP Internal Medicine; Visit Provider Urology
DX: N50.89 Other specified disorders of the male genital organs (principal)
CPT/HCPCS: 88309; 88313; 88341; 88342

== ENCOUNTER → 2021-06-18 13:49 | Outpatient (CLI) | payer MEDICARE, OTHER, SELFPAY ==
--- NOTE | 2021-06-18 13:52 | CT_ITS ---
EXAM: CT CHEST, ABDOMEN AND PELVIS WITH INTRAVENOUS CONTRAST : 1935 CLINICAL INDICATION: TESTICULAR CA TECHNIQUE: Helically acquired images were obtained of the chest, abdomen and pelvis with intravenous contrast. This CT exam was performed using one or more of the following dose reduction techniques: automated exposure control, adjustment of the mA and/or kV according to patient size, and/or use of iterative reconstruction technique. This report was created using [employer] report generation technology. CONTRAST: IV 100mL [id number]-[id number] COMPARISON: CT abdomen and pelvis for better 05/02/2020 FINDINGS: CHEST: LUNGS AND PLEURAL SPACES: Unremarkable. No mass. No consolidation or edema. No pleural effusion or thickening. No pneumothorax. HEART: Unremarkable. Heart size is normal. No pericardial effusion. MEDIASTINUM: No mediastinal adenopathy. Esophagus is unremarkable. THYROID: Enlarged thyroid gland noted with 3.5 cm component projecting into the superior mediastinum. ABDOMEN: LIVER: Small foci of contrast enhancement within hepatic segment 7 may represent small hemangiomata. GALLBLADDER AND BILE DUCTS: Small stones again noted within the gallbladder. No gallbladder distention or wall edema. No intra- or extrahepatic biliary ductal dilation. PANCREAS: Pancreas is normal in appearance. SPLEEN: 3.6 cm soft tissue mass adjacent to the tail of the pancreas consistent with a splenule. Additional 3.6 cm concentrically calcified lesion within the left upper quadrant also likely splenic in origin ADRENALS: Unremarkable. No nodules. KIDNEYS AND URETERS: Bilateral renal cysts again noted which have a benign appearance. Small calcifications within the right renal sinus again noted which may represent vascular calcification and/or small stones. Normal renal size and position. No hydronephrosis. STOMACH AND BOWEL: Colon diverticulosis noted without evidence of acute diverticulitis. No stomach or bowel distention. PELVIS: APPENDIX: No evidence of acute appendicitis. BLADDER: Mild wall thickening of the urinary bladder noted associated with small diverticular formation presently regulated to chronic bladder outlet obstruction. REPRODUCTIVE: Unremarkable as visualized. No mass. CHEST, ABDOMEN and PELVIS: INTRAPERITONEAL SPACE: Unremarkable. No ascites or other fluid collection. No free air. BONES/JOINTS: Unremarkable. No suspicious lytic or blastic abnormality. SOFT TISSUES: 5 x 3 cm low-density area within the left inguinal canal/left scrotal sac with enhancing wall may represent small abscess, postoperative seroma or hematoma. Soft tissue density within the right inguinal canal may represent the right testis. Fat-containing bilateral inguinal hernias are noted. VASCULATURE: Abdominal aorta is normal in caliber. IVC appears normal. LYMPH NODES: Unremarkable. No enlarged lymph nodes. CT/CT Chest, Abd, Pel w/Contrast IMPRESSION: 1. No evidence of metastatic disease. 2. 5 x 3 cm collection within the left inguinal canal which may represent abscess, postoperative seroma or hematoma. 3. Cholelithiasis. 4. Additional nonacute findings described above. Individualized dose optimization techniques were used for this CT. at 1030 Reported and signed by: Harsha Tucker MD Electronically Signed: Harsha Tucker MD at 10:29 EDT Tel , Service support ,
== END ==
PROVIDERS: PCP Internal Medicine; Referring Provider Internal Medicine Medical Oncology; Visit Provider Internal Medicine Medical Oncology
DX: C62.90 Malignant neoplasm of unspecified testis, unspecified whether descended or undescended (principal)
CPT/HCPCS: 71260; 74177; Q9967

== ENCOUNTER 2021-11-18 16:08 | Outpatient (CLI) | payer MEDICARE, OTHER, SELFPAY ==
--- NOTE | 2021-11-18 16:35 | CT_ITS ---
EXAM: CT ABDOMEN AND PELVIS WITHOUT INTRAVENOUS CONTRAST : 1935 CLINICAL INDICATION: KIDNEY STONE TECHNIQUE: Helically acquired images were obtained of the abdomen and pelvis without intravenous contrast. This CT exam was performed using one or more of the following dose reduction techniques: automated exposure control, adjustment of the mA and/or kV according to patient size, and/or use of iterative reconstruction technique. This report was created using [employer] report generation technology. COMPARISON: December 11, 2019 FINDINGS: LOWER THORAX: Unremarkable. Lung bases are clear. No cardiomegaly. No significant pericardial effusion. ABDOMEN: LIVER: Unremarkable. Homogeneous. GALLBLADDER AND BILE DUCTS: Small calcified stones again noted within the gallbladder. No gallbladder distention or wall edema. No intra- or extrahepatic biliary ductal dilation. PANCREAS: Unremarkable. No focal cystic mass. SPLEEN: Splenule is again seen within the left upper quadrant. ADRENALS: Unremarkable. No nodules. KIDNEYS AND URETERS: Stable bilateral renal cysts which have a benign appearance. No specific follow-up recommended. Nonobstructive right renal stones. Ureters are nondilated. Normal renal size and position. STOMACH AND BOWEL: Colon diverticulosis noted without evidence of acute diverticulitis. No stomach or bowel distention. PELVIS: APPENDIX: No evidence of acute appendicitis. BLADDER: Urinary bladder diverticula again seen. REPRODUCTIVE: Unremarkable as visualized. No mass. ABDOMEN and PELVIS: INTRAPERITONEAL SPACE: Unremarkable. No ascites or other fluid collection. No free air. BONES/JOINTS: Unremarkable. No suspicious lytic or blastic abnormality. SOFT TISSUES: Small fat-containing bilateral inguinals again noted. VASCULATURE: Unremarkable. Abdominal aorta is non-dilated. LYMPH NODES: Unremarkable. No enlarged lymph nodes. CT/Abdomen/Pelvis without Cont IMPRESSION: 1. Right nephrolithiasis. No evidence of urinary tract obstruction. 2. Cholelithiasis. 3. Diverticulosis coli. 4. Urinary bladder diverticula which may represent changes of chronic bladder outlet obstruction or cystitis. Individualized dose optimization techniques were used for this CT. at 1656 Reported and signed by: Harsha Tucker MD Electronically Signed: Harsha Tucker MD at 16:55 EST Reading Location ID and State: [facility] / [place] Tel , Service support ,
== END 2021-11-18 23:59 | disposition short-term general hospital (02) ==
LOC: CT 16:15
PROVIDERS: PCP Internal Medicine; Referring Provider Urology; Visit Provider Urology
DX: N20.9 Urinary calculus, unspecified (principal)
CPT/HCPCS: 74176

== ENCOUNTER 2022-04-01 20:40 | Emergency (ER) | payer MEDICARE, OTHER, SELFPAY ==
[2022-04-01 20:41] VITALS: BP 128/54; PULSE 51; RESP 18; TEMP 36.1; O2SAT 96; BMI 28.8
--- NOTE | 2022-04-01 20:50 | RAD_ITS ---
STUDY: X-RAY CHEST REASON FOR EXAM: Male, 86 years old. FALL -- R RIB PAIN TECHNIQUE: AP portable COMPARISON: 12/11/2019. FINDINGS: Nonspecific elevation of the right hemidiaphragm.. There is no demonstrated pleural abnormality. Normal size heart. Normal mediastinum and ximena. Normal visualized pulmonary arteries. Mildly calcified aortic arch and descending thoracic aorta. Normal visualized thoracic spine. Normal visualized ribs, clavicles, and shoulders. There is no demonstrated abnormality of the visualized soft tissue structures of the upper abdomen. RAD/Chest 1 View (Portable) IMPRESSION: No acute cardiopulmonary pathology Electronically Signed: Casey Allan MD at 21:21 EDT ,
--- NOTE | 2022-04-01 22:32 | EDS_ITS ---
HPI HPI - Fall History of Present Illness Chief Complaint: Fall Narrative Narrative: 86-year-old male presenting for evaluation of right rib pain. Apparently he was singing in choir today and instantly fell over on a chair and hit his ribs on the right. He does not have any shortness of breath. He initially had pain but states his pain is improved significantly. No cough. No bruising. He sustained no head injury or LOC. [facility] Medical History Acute kidney injury Anemia BPH (benign prostatic hyperplasia) Diverticulitis GERD (gastroesophageal reflux disease) GI bleed History of CVA (cerebrovascular accident) HLD (hyperlipidemia) HTN (hypertension) Hypertension Severe sepsis Home Medications finasteride 5 mg tablet 5 mg PO DAILY Check with primary doctor 01/02/14 [History Last Taken 06/04/19] metoprolol tartrate 50 mg tablet 50 mg PO BID Check with primary doctor 01/02/14 [History Last Taken 06/04/19] simvastatin 40 mg tablet 40 mg PO DAILY Check with primary doctor 01/02/14 [History Last Taken 06/04/19] cholecalciferol (vitamin D3) 25 mcg (1,000 unit) tablet (Vitamin D3) 1,000 unit PO DAILY Check with primary doctor 07/12/18 [History Last Taken 06/04/19] btqsgehr-zsn-yjqfk acid 0.4 mg-lycopene 300 mcg-lutein 250 mcg tablet (Centrum Silver) 1 tab PO DAILY vitamin 07/12/18 [History Last Taken 06/04/19] Lactobacillus acidophilus 1 ea PO DAILY Check with primary doctor 06/05/19 [History Last Taken 06/04/19] amlodipine 5 mg-benazepril 20 mg capsule 1 ea PO DAILY blood pressure 06/05/19 [History Last Taken 06/04/19] ferrous sulfate 325 mg (65 mg iron) tablet 325 mg PO DAILY #14 tabs 06/07/19 [Rx Last Taken Unknown] amoxicillin 875 mg-potassium clavulanate 125 mg tablet 1 ea PO BIDCM #13 tabs 12/14/19 [Rx Last Taken Unknown] Allergy/AdvReac Type Severity Reaction Status Date / Time shellfish derived AdvReac Nausea/Vom/ Verified 04/01/22 20:43 Diarrhea Family History Father CVA (cerebral vascular accident) Surgical History History of appendectomy History of cataract extraction History of laparoscopy History of left inguinal hernia repair History of lithotripsy History of tonsillectomy Social History Smoking Status: Never smoker alcohol intake: never ROS ROS ED Constitutional Constitutional ED: Denies chills or fever(s) Eyes Eyes: Denies blurry vision or change in vision ENT ENT ED: Denies rhinorrhea Cardiovascular Cardiovascular: Denies chest pain or palpitations Respiratory/Chest Respiratory/Chest: Denies cough or dyspnea Gastrointestinal Gastrointestinal: Denies abdominal pain or constipation Genitourinary Genitourinary ED: Denies dysuria or hematuria Musculoskeletal Musculoskeletal: Denies arthralgias or back pain Integumentary Denies abscess or Abrasions Neurologic Neurologic: Denies headache(s) or paresthesias Psychiatric Psychiatric: Denies anxiety or depression Endocrine Endocrinology: Denies polydipsia or polyphagia EXAM Physical Exam Const Vital Signs: 04/01/22 20:41 04/01/22 21:04 Temperature 97.0 F L Temperature Source Temporal Pulse Rate 51 L Respiratory Rate 18 Respiratory Effort Normal Non-Labored Respiratory Depth Normal Respiratory Pattern Normal Blood Pressure 128/54 H Blood Pressure Mean 78 Pulse Ox 96 Oxygen Delivery Method Room Air Room Air Positive well nourished General Appearance ED: NAD HEENT Reports normocephalic Eyes PERRL and EOMs intact bilaterally Neck full ROM General: Negative for tenderness Chest Wall inspection of chest normal and palpation of chest normal Resp normal respiratory effort, no retractions and clear to auscultation bilaterally Cardio regular rate and regular rhythm Neuro Motor Exam: strength 5/5 throughout Psych mental status grossly normal Skin Lesions: No no lesions Rashes: No no rashes Trauma: Negative for abrasion MDM MDM MDM Narrative Medical decision making narrative: Patient presenting with resolved right rib pain. Lungs are clear to auscultation. Vital signs are stable he is afebrile. He was given Tylenol for pain. Chest x-ray on my interpretation shows no acute cardiopulmonary process and radiologist agree. Since the pain appears to be mechanical he was singing in choir I do not believe he needs further work-up or evaluation. He is counseled to use ice and Tylenol for pain as needed. Impression: 1. Mechanical fall 2. Right rib contusion Radiography Diagnostic Testing: Clinical Impression(s) from Imaging Studies Chest X-Ray 04/01/22 20:50 IMPRESSION: No acute cardiopulmonary pathology Electronically Signed: Casey Allan MD at 21:21 EDT Reading Location ID and State: [facility] / MD , Service support , Discharge Plan Triage Chief Complaint: Fall ED Provider: Aubrey Rucker Dx/Rx/DC Orders Instructions: ED Fall with Uncertain Cause, ED Contusion, Rib Prescriptions: No Action simvastatin 40 MG tablet 40 mg PO DAILY Label Comments: metoprolol tartrate 50 MG tablet 50 mg PO BID Label Comments: finasteride 5 MG tablet 5 mg PO DAILY Label Comments: uvqyggph-ctw-KD-lycopen-lutein [Centrum Silver] 1 EACH tablet 1 tab PO DAILY cholecalciferol (vitamin D3) [Vitamin D3] 1,000 UNIT tablet 1,000 unit PO DAILY amlodipine-benazepril 1 EACH capsule 1 ea PO DAILY Lactobacillus acidophilus 1 EACH capsule 1 ea PO DAILY ferrous sulfate 325 MG tablet 325 mg PO DAILY Qty: 14 0RF amoxicillin-pot clavulanate 1 EACH tablet 1 ea PO BIDCM Qty: 13 0RF Primary Care Provider: Ji Myrick Referrals: Ji Myrick MD [Primary Care Provider] - Disposition Disposition: Home, Self Care
[2022-04-01] MEDS: Acetaminophen 500 MG Tablet 1000 MG PO (22:35)
== END 2022-04-01 22:37 | disposition home or self-care (01) ==
PROVIDERS: Emergency Provider Student in an Organized Health Care Education/Training Program; PCP Internal Medicine; Visit Provider Student in an Organized Health Care Education/Training Program
DX: S20.211A Contusion of right front wall of thorax, initial encounter (principal); W01.190A Fall on same level from slipping, tripping and stumbling with subsequent striking against furniture, initial encounter; Y92.22 Religious institution as the place of occurrence of the external cause; I10 Essential (primary) hypertension; E78.5 Hyperlipidemia, unspecified; N40.0 Benign prostatic hyperplasia without lower urinary tract symptoms; K21.9 Gastro-esophageal reflux disease without esophagitis; Z86.73 Personal history of transient ischemic attack (TIA), and cerebral infarction without residual deficits; Z79.899 Other long term (current) drug therapy
CPT/HCPCS: 71045; 99283

== ENCOUNTER 2022-07-13 10:26 | Emergency (ER) | payer MEDICARE, OTHER, SELFPAY ==
[2022-07-13 10:26] VITALS: BP 142/59; PULSE 49; RESP 16; TEMP 36.2; O2SAT 97; BMI 27.9
--- NOTE | 2022-07-13 10:38 | EX.ED.UPPERE ---
HPI History of Present Illness HPI Narrative: Left forearm skin tear Chief Complaint: Upper Extremity Injury Informant: patient Onset/Context/Timing Onset: Days Context: Gradual Onset Timing: Continuous Current Severity: Mild Maximum Severity: Mild Narrative Narrative: 87-year-old male history of anemia, GI bleed, stroke, hypertension and renal insufficiency. States that he has had chronic bruising to his left elbow and forearm area. Recently had a break in the skin. He just wants it evaluated. He wants to make sure its not infected and wants to know what he can do to keep it from getting infected. He denies any complaints. There is no pain to the arm. No recent injury. Prior similar symptoms: No Recent Illness/Hospitalization: No [facility] Medical History (Updated 07/13/22 @ 10:[address] Jerome Dela Cruz MD) Acute kidney injury Anemia BPH (benign prostatic hyperplasia) Diverticulitis GERD (gastroesophageal reflux disease) GI bleed History of CVA (cerebrovascular accident) HLD (hyperlipidemia) HTN (hypertension) Hypertension Severe sepsis Home Medications finasteride 5 mg tablet 5 mg PO DAILY Check with primary doctor 01/02/14 [History Last Taken 06/04/19] metoprolol tartrate 50 mg tablet 50 mg PO BID Check with primary doctor 01/02/14 [History Last Taken 06/04/19] simvastatin 40 mg tablet 40 mg PO DAILY Check with primary doctor 01/02/14 [History Last Taken 06/04/19] cholecalciferol (vitamin D3) 25 mcg (1,000 unit) tablet (Vitamin D3) 1,000 unit PO DAILY Check with primary doctor 07/12/18 [History Last Taken 06/04/19] klwxiynu-jyj-ddaql acid 0.4 mg-lycopene 300 mcg-lutein 250 mcg tablet (Centrum Silver) 1 tab PO DAILY vitamin 07/12/18 [History Last Taken 06/04/19] Lactobacillus acidophilus 1 ea PO DAILY Check with primary doctor 06/05/19 [History Last Taken 06/04/19] amlodipine 5 mg-benazepril 20 mg capsule 1 ea PO DAILY blood pressure 06/05/19 [History Last Taken 06/04/19] ferrous sulfate 325 mg (65 mg iron) tablet 325 mg PO DAILY #14 tabs 06/07/19 [Rx Last Taken Unknown] amoxicillin 875 mg-potassium clavulanate 125 mg tablet 1 ea PO BIDCM #13 tabs 12/14/19 [Rx Last Taken Unknown] Allergy/AdvReac Type Severity Reaction Status Date / Time shellfish derived AdvReac Nausea/Vom/ Verified 07/13/22 10:28 Diarrhea Family History Father CVA (cerebral vascular accident) Surgical History History of appendectomy History of cataract extraction History of laparoscopy History of left inguinal hernia repair History of lithotripsy History of tonsillectomy Social History Smoking Status: Never smoker alcohol intake: never ROS ROS ED ROS Narrative Denies recent illness. Review of Systems ROS Unobtainable: Denies due to encephalopathy Constitutional Constitutional ED: Denies chills or fever(s) Eyes Eyes: Denies blurry vision ENT ENT ED: Denies ear pain Cardiovascular Cardiovascular: Denies chest pain Respiratory/Chest Respiratory/Chest: Denies cough or dyspnea Gastrointestinal Gastrointestinal: Denies abdominal pain Genitourinary Genitourinary ED: Denies dysuria Musculoskeletal Musculoskeletal: Denies back pain Integumentary Denies abscess Neurologic Neurologic: Denies headache(s) Psychiatric Psychiatric: Denies anxiety Endocrine Endocrinology: Denies cold intolerance Hematologic/Lymphatic Hematologic/Lymphatic: Denies easy bleeding Allergic/Immunologic Allergic/Immunologic ED: Denies mouth swelling EXAM Physical Exam Narrative Exam Narrative: 87-year-old male no acute distress. Vital signs stable afebrile. H EENT exam unremarkable. Lungs are clear. Heart regular rhythm. Abdomen soft nontender. Moving all 4 extremities. He has an old bruise to his left forearm. He has full flexion-extension of the elbow. He is nontender nonswollen. There is a very small skin tear on the proximal dorsal end of his forearm. No bony deformity. Full range of motion to his wrist. Normal card feeder strength. There is no signs of infection. Const Vital Signs: 07/13/22 10:26 Temperature 97.1 F L Temperature Source Temporal Pulse Rate 49 L Respiratory Rate 16 Blood Pressure 142/59 H Blood Pressure Mean 86 Pulse Ox 97 Oxygen Delivery Method Room Air Positive well nourished, well developed and unkempt; Negative for cachectic or contractures General Appearance ED: unkempt, well developed and NAD; Negative for cachectic, contractures, cyanotic or diaphoretic Nutritional Appearance: Negative for cachectic HEENT Reports moist mucous membranes normocephalic and atraumatic; Negative for trauma or tenderness Eyes PERRL and EOMs intact bilaterally General Eye ED: Negative for other Neck full ROM and supple General: Negative for tenderness Lymph Lymphatic: Negative for other Chest Wall inspection of chest normal and palpation of chest normal Chest: Negative for other Resp normal respiratory effort and clear to auscultation bilaterally Effort and Inspection: Negative for pain with movement Auscultation: Negative for rales, rhonchi or wheezes Cardio regular rate, regular rhythm, S1 normal heart sound, S2 normal heart sound and no murmurs Rate: Negative for bradycardia or tachycardic GI non-tender and no masses Inspection: Negative for abdominal distention Auscultation: normoactive bowel sounds Palpation: soft; Negative for tender Neuro oriented x3, moves all extremities and no focal motor deficits Sensorium / Orientation: alert, oriented to person, oriented to place and oriented to time; Negative for orientation impaired, lethargic or stuporous Sensory Exam: No sensory level loss detected Motor Exam: strength 5/5 throughout Psych mental status grossly normal Appearance: unkempt Attitude: No agitated Mood & Affect: Negative for depressed, anxious or tearful Skin Skin Narrative: Bruising left forearm. Nontender. Small skin tear. No infection. Normal range of motion. Lesions: no lesions Rashes: no rashes Trauma: no lacerations or abrasions MDM MDM MDM Narrative Medical decision making narrative: 87-year-old male has a small skin tear on his left forearm. There is old bruising. Area be cleaned and dressed. He does not need any imaging or labs. Discharge Plan Triage Chief Complaint: Upper Extremity Injury ED Provider: Jerome Dela Cruz Dx/Rx/DC Orders Clinical Impression: Skin tear, History of hypertension, History of renal insufficiency Prescriptions: No Action simvastatin 40 MG tablet 40 mg PO DAILY Label Comments: metoprolol tartrate 50 MG tablet 50 mg PO BID Label Comments: finasteride 5 MG tablet 5 mg PO DAILY Label Comments: bgtokcew-rgq-FX-lycopen-lutein [Centrum Silver] 1 EACH tablet 1 tab PO DAILY cholecalciferol (vitamin D3) [Vitamin D3] 1,000 UNIT tablet 1,000 unit PO DAILY amlodipine-benazepril 1 EACH capsule 1 ea PO DAILY Lactobacillus acidophilus 1 EACH capsule 1 ea PO DAILY ferrous sulfate 325 MG tablet 325 mg PO DAILY Qty: 14 0RF amoxicillin-pot clavulanate 1 EACH tablet 1 ea PO BIDCM Qty: 13 0RF Primary Care Provider: Ji Myrick Referrals: Ji Myrick MD [Primary Care Provider] - As Needed Activity Restrictions/Additional Instructions: Keep the area clean. Apply antibiotic ointment daily. Cover with a Band-Aid. If our dressing stays dry and clean you can leave it on for 4 to 5 days. Disposition Disposition: Home, Self Care
== END 2022-07-13 10:53 | disposition home or self-care (01) ==
LOC: ED 10:51
PROVIDERS: Emergency Provider Emergency Medicine; PCP Internal Medicine; Visit Provider Emergency Medicine
DX: S51.812A Laceration without foreign body of left forearm, initial encounter (principal); X58.XXXA Exposure to other specified factors, initial encounter; I10 Essential (primary) hypertension; E78.5 Hyperlipidemia, unspecified; N40.0 Benign prostatic hyperplasia without lower urinary tract symptoms; K21.9 Gastro-esophageal reflux disease without esophagitis; Z79.899 Other long term (current) drug therapy; Z86.73 Personal history of transient ischemic attack (TIA), and cerebral infarction without residual deficits
CPT/HCPCS: 99282

== ENCOUNTER 2022-10-12 08:35 | Emergency (ER) | payer MEDICARE, OTHER, SELFPAY ==
[2022-10-12 08:36] VITALS: BP 122/64; PULSE 83; RESP 16; TEMP 36.4; O2SAT 96; BMI 27.9
--- NOTE | 2022-10-12 09:00 | EDS_ITS ---
HPI History of Present Illness Chief Complaint: Wound Detail of Chief Complaint: Skin tear dorsal surface left forearm Informant: patient Occured/Mechanism Mechanism/Context: Yes injury Comment: Patient bumped his arm a week ago resulting in a skin tear. He reports persistent bleeding since injury. He is not on an anticoagulant. He does not take aspirin and is not on Plavix or Brilinta. Onset/Context/Timing Context: Sudden Onset Timing: Intermittent (Bleeding has been intermittent.) Quality of Pain: - (He is not complain of pain.) Location: Dorsal proximal left forearm Current Severity: No active bleeding Maximum Severity: Moderate Worsened by: Unknown Relieved by: Nothing Associated Symptoms Associated Symptoms: Negative for Parasthesia, Weakness or Loss of Funtion Narrative Narrative: Patient is a 87-year-old male. He is right-hand dominant. He presents with a skin tear to the dorsal proximal left forearm. He denies paresthesia, anesthesia or motor weakness. Is not on anticoagulant. He states he presents because bleeding persists. He also made comment that he has to care for himself and make breakfast since his is in a jail. Tetanus Immunization: 5-10 years Prior similar symptoms: No Recent Illness/Hospitalization: No [facility] Medical History (Updated 10/12/22 @ 09:[address] Ming Connors MD) Acute kidney injury Anemia BPH (benign prostatic hyperplasia) Diverticulitis GERD (gastroesophageal reflux disease) GI bleed History of CVA (cerebrovascular accident) HLD (hyperlipidemia) HTN (hypertension) Hypertension Severe sepsis Home Medications finasteride 5 mg tablet 5 mg PO DAILY Check with primary doctor 01/02/14 [History Last Taken 06/04/19] metoprolol tartrate 50 mg tablet 50 mg PO BID Check with primary doctor 01/02/14 [History Last Taken 06/04/19] simvastatin 40 mg tablet 40 mg PO DAILY Check with primary doctor 01/02/14 [History Last Taken 06/04/19] cholecalciferol (vitamin D3) 25 mcg (1,000 unit) tablet (Vitamin D3) 1,000 unit PO DAILY Check with primary doctor 07/12/18 [History Last Taken 06/04/19] xmceivaj-xom-wzkvy acid 0.4 mg-lycopene 300 mcg-lutein 250 mcg tablet (Centrum Silver) 1 tab PO DAILY vitamin 07/12/18 [History Last Taken 06/04/19] Lactobacillus acidophilus 1 ea PO DAILY Check with primary doctor 06/05/19 [History Last Taken 06/04/19] amlodipine 5 mg-benazepril 20 mg capsule 1 ea PO DAILY blood pressure 06/05/19 [History Last Taken 06/04/19] ferrous sulfate 325 mg (65 mg iron) tablet 325 mg PO DAILY #14 tabs 06/07/19 [Rx Last Taken Unknown] amoxicillin 875 mg-potassium clavulanate 125 mg tablet 1 ea PO BIDCM #13 tabs 12/14/19 [Rx Last Taken Unknown] Allergy/AdvReac Type Severity Reaction Status Date / Time shellfish derived AdvReac Nausea/Vom/ Verified 10/12/22 08:39 Diarrhea Family History Father CVA (cerebral vascular accident) Surgical History History of appendectomy History of cataract extraction History of laparoscopy History of left inguinal hernia repair History of lithotripsy History of tonsillectomy Social History (Updated 10/12/22 @ 09:[address] Ming Connors MD) household members: spouse Smoking Status: Never smoker alcohol intake: never ROS ROS ED Constitutional Constitutional ED: Denies chills or fever(s) Integumentary Reports other Details: Skin tear left forearm ; Denies abscess, Abrasions or rash Neurologic Neurologic: Denies paresthesias or weakness Hematologic/Lymphatic Hematologic/Lymphatic: Denies easy bleeding or easy bruising EXAM Physical Exam Const Vital Signs: 10/12/22 08:36 Temperature 97.5 F L Temperature Source Temporal Pulse Rate 83 Respiratory Rate 16 Blood Pressure 122/64 H Blood Pressure Mean 83 Pulse Ox 96 Oxygen Delivery Method Room Air Positive well nourished and well developed General Appearance ED: well developed and NAD; Negative for cyanotic or diaphoretic HEENT Reports moist mucous membranes normocephalic and atraumatic Eyes PERRL and EOMs intact bilaterally Neck full ROM and supple Resp normal respiratory effort Cardio regular rate and regular rhythm Extremity Negative for normal to inspection Extremity Narrative: There is a skin tear that is approximately 3 cm in length. Skin was folded on itself. There was slight oozing noted. Median, radial and ulnar function intact. There is no pain ovation over the lateral medial upper condyle, olecranon process or radial head. There is no pain with supination, pronation or flexion and extension at the elbow or wrist. Neuro oriented x3, CN's II-XII intact bilaterally, moves all extremities, no focal motor deficits and no sensory deficits noted Sensorium / Orientation: alert Psych Mood & Affect: depressed Skin Skin Narrative: Skin tear previously described MDM MDM MDM Narrative Medical decision making narrative: Skin was unfolded and laid out over the wound. Presently there is no active bleeding. We will have nurse apply dressing. Discharge Plan Triage Chief Complaint: Wound ED Provider: Ming Connors Dx/Rx/DC Orders Clinical Impression: Skin tear of left forearm without complication Instructions: ED Skin Avulsion Prescriptions: No Action simvastatin 40 MG tablet 40 mg PO DAILY Label Comments: metoprolol tartrate 50 MG tablet 50 mg PO BID Label Comments: finasteride 5 MG tablet 5 mg PO DAILY Label Comments: xpvrculi-ber-KE-lycopen-lutein [Centrum Silver] 1 EACH tablet 1 tab PO DAILY cholecalciferol (vitamin D3) [Vitamin D3] 1,000 UNIT tablet 1,000 unit PO DAILY amlodipine-benazepril 1 EACH capsule 1 ea PO DAILY Lactobacillus acidophilus 1 EACH capsule 1 ea PO DAILY ferrous sulfate 325 MG tablet 325 mg PO DAILY Qty: 14 0RF amoxicillin-pot clavulanate 1 EACH tablet 1 ea PO BIDCM Qty: 13 0RF Primary Care Provider: Ji Myrick Referrals: Ji Myrick MD [Primary Care Provider] - 3-5 Days if not improving Activity Restrictions/Additional Instructions: Do not remove dressing for 24 to 48 hours. Disposition Disposition: Home, Self Care
== END 2022-10-12 09:44 | disposition home or self-care (01) ==
LOC: ED 09:17
PROVIDERS: Emergency Provider Emergency Medicine; PCP Internal Medicine; Visit Provider Emergency Medicine
DX: S51.812A Laceration without foreign body of left forearm, initial encounter (principal); W22.8XXA Striking against or struck by other objects, initial encounter; I10 Essential (primary) hypertension; E78.5 Hyperlipidemia, unspecified; N40.0 Benign prostatic hyperplasia without lower urinary tract symptoms; K21.9 Gastro-esophageal reflux disease without esophagitis; Z86.73 Personal history of transient ischemic attack (TIA), and cerebral infarction without residual deficits
CPT/HCPCS: 99282

== ENCOUNTER 2023-04-24 09:11 | Emergency (ER) | payer MEDICARE, OTHER, SELFPAY ==
[2023-04-24 09:12] VITALS: BP 124/63; PULSE 55; RESP 18; TEMP 36.4; O2SAT 97; BMI 27.9
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
== END 2023-04-24 09:56 | disposition home or self-care (01) ==
LOC: ED 09:53
PROVIDERS: Emergency Provider Emergency Medicine; PCP Internal Medicine; Visit Provider Emergency Medicine
DX: S51.812A Laceration without foreign body of left forearm, initial encounter (principal); X58.XXXA Exposure to other specified factors, initial encounter; Y92.810 Car as the place of occurrence of the external cause; I10 Essential (primary) hypertension; E78.5 Hyperlipidemia, unspecified; Z79.899 Other long term (current) drug therapy
CPT/HCPCS: 99282

== ENCOUNTER → 2023-11-20 | Outpatient (CLI) | payer MEDICARE, OTHER, SELFPAY ==
--- NOTE | 2023-11-20 08:45 | CT_ITS ---
EXAM: CT ABDOMEN AND PELVIS WITHOUT INTRAVENOUS CONTRAST CLINICAL INDICATION: KIDNEY STONES TECHNIQUE: Helically acquired images were obtained of the abdomen and pelvis without intravenous contrast. This CT exam was performed using one or more of the following dose reduction techniques: automated exposure control, adjustment of the mA and/or kV according to patient size, and/or use of iterative reconstruction technique. COMPARISON: 11/18/2021 FINDINGS: LOWER THORAX: Unremarkable. Lung bases are clear. No cardiomegaly. No significant pericardial effusion. ABDOMEN: LIVER: Unremarkable. Homogeneous. GALLBLADDER AND BILE DUCTS: There is a small gallstone present. No gallbladder distention or wall edema. No intra- or extrahepatic biliary ductal dilation. PANCREAS: Unremarkable. No focal cystic mass. SPLEEN: There is a peripherally calcified nodule in the left upper quadrant of the abdomen which may represent a splenule which is stable. ADRENALS: Unremarkable. No nodules. KIDNEYS AND URETERS: There are multiple low-density masses involving both kidneys compatible with simple cysts. There is a solid-appearing mass off the lower pole of the right kidney that measures 3.4 x 3.2 cm is unchanged from the reference exam. There are nonobstructing calyceal stones in the right kidney. STOMACH AND BOWEL: There is sigmoid diverticulosis with thickening of the wall of the proximal sigmoid colon. This may be due to incomplete distention and early diverticulitis or possibly a mass lesion. PELVIS: APPENDIX: No evidence of acute appendicitis. BLADDER: Unremarkable. REPRODUCTIVE: Unremarkable as visualized. No mass. ABDOMEN and PELVIS: INTRAPERITONEAL SPACE: Unremarkable. No ascites or other fluid collection. No free air. BONES/JOINTS: Unremarkable. No suspicious lytic or blastic abnormality. SOFT TISSUES: Unremarkable. No discrete abdominal or pelvic wall hernia. VASCULATURE: Unremarkable. Abdominal aorta is non-dilated. LYMPH NODES: Unremarkable. No enlarged lymph nodes. CT/Abdomen/Pelvis without Cont IMPRESSION: 1. Solid-appearing mass of the lower pole the right kidney which is stable from the reference exam. If indicated further evaluation with ultrasound may be beneficial. 2. Sigmoid diverticulosis with wall thickening of the proximal sigmoid colon. This may be due to incomplete distention or perhaps an early diverticulitis. Less likely this may represent a mass lesion. 3. Nonobstructing right calyceal stones. There is no ureteral obstruction. Electronically Signed: Antony Rosales MD at 0:01 EST ,
--- OUTSIDE RECORDS SUMMARY | 2023-11-20 08:46 | XMS RPT_ITS | CCD ---
Author Name Unknown Address [address] [place] [address] Organization [facility] Care Team Providers Care Wellness Nurse Rn Name Role Phone Destiny SEGUNDO, Ji Kaur Primary Care Provider [phone] JI DIXON Primary Care Unavailable DESTINY, JI Kaur Attending Unavailable DESTINY, JI Kaur Primary Care Unavailable DIXON, JI Kaur Referring Unavailable DIXON, JI Kaur Referring Unavailable DESTINY, JI Kaur Primary Care Unavailable JI DIXON Attending Unavailable DESTINY, JI Kaur Primary Care Unavailable VICKI MAYA Referring Unavailable DIXON, JI Kuar Primary Care Unavailable DESTINY, JI Kaur Attending Unavailable DESTINY, JI Kaur Primary Care Unavailable DESTINY, JI Kaur Attending Unavailable DESTINY, JI Kaur Primary Care Unavailable JI DIXON Referring Unavailable Ji Dixon MD Primary Care Provider [phone] Allergies Allergy Classification Reported Allergen(s) Allergy Type Date of Onset Reaction(s) Facility (3 sources) Thiazides; Translations: [THIAZIDES] Propensity to adverse reactions 09-09-2009 Intolerance [facility] (11 sources) Thiazides Propensity to adverse reactions 09-09-2009 Intolerance [facility] Medications Completed/Discontinued Medications Medication Drug Class(es) Dates Sig (Normalized) Sig (Original) acetaminophen 325 mg / HYDROcodone bitartrate 5 mg oral tablet (1 source) Opioid Agonist Start: 12-24-2021 End: 12-26-2021 take 1 tablet by mouth every eight hours as needed for pain HYDROcodone-aceta minophen (NORCO) 5-325 mg per tablet Indications: Kidney stones Take 1 tablet by mouth every 8 hours as needed for pain for up to 2 days. 6 tablet 0 12/24/2021 12/26/2021 Problems Active Problems Problem Classification Problem Date Documented Da te Episodic/Chronic Calculus of urinary tract (1 source) Kidney stone; Translations: [Calculus of kidney] Episodic Cancer of testis (14 sources) Malignant tumor of testis; Translations: [Malignant neoplasm of left testis, unspecified whether descended or undescended] Onset: 05-23-2021 07-24-2021 Chronic Chronic kidney disease (17 sources) Chronic kidney disease stage 3; Translations: [CKD (chronic kidney disease) stage 3, GFR 30-59 ml/min] Onset: 08-07-2017 08-07-2017 Chronic Chronic kidney disease (1 source) Chronic kidney disease; Translations: [Stage 3b chronic kidney disease (HCC)] Onset: 08-07-2017 Deficiency and other anemia (2 sources) Anemia; Translations: [Anemia, unspecified] Episodic Deficiency and other anemia (1 source) Anemia, unspecified; Translations: [Anemia, unspecified type] Onset: 08-25-2023 Episodic Disorders of lipid metabolism (19 sources) Hyperlipidemia; Translations: [Hyperlipidemia, unspecified] Onset: 11-03-2010 11-03-2010 Chronic Diverticulosis and diverticulitis (1 source) Diverticulitis; Translations: [Diverticulitis of intestine, part unspecified, without perforation or abscess without bleeding] Chronic E Codes: Fall (1 source) Accidental fall ; Translations: [Unspecified fall, subsequent encounter] Episodic Essential hypertension (18 sources) Essential hypertension; Translations: [Essential (primary) hypertension] Onset: 04-22-2006 10-09-2015 Chronic Hyperplasia of prostate (15 sources) Benign prostatic hypertrophy with outflow obstruction; Translations: [Benign prostatic hyperplasia with lower urinary tract symptoms] Onset: 06-28-2008 07-02-2017 Chronic Immunizations and screening for infectious disease (3 sources) Vaccination needed; Translations: [Encounter for immunization] Episodic Other congenital anomalies (13 sources) Asplenia; 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)] Onset: 06-03-2013 01-18-2017 Chronic Other eye disorders (13 sources) Degenerative disorder of eye; Translations: [Degenerative myopia, bilateral] Onset: 11-30-2013 10-13-2021 Chronic Other hereditary and degenerative nervous system conditions (2 sources) Impaired cognition; Translations: [Mild cognitive impairment, so stated] Chronic Other hereditary and degenerative nervous system conditions (1 source) Mild cognitive impairment, so stated; Translations: [Mild cognitive impairment] Onset: 08-25-2023 Chronic Other nutritional; endocrine; and metabolic disorders (13 sources) Obese class I; Translations: [Obesity, unspecified] Onset: 07-07-2019 07-07-2019 Chronic Retinal detachments; defects; vascular occlusion; and retinopathy (3 sources) Nonexudative age-related macular degeneration; Translations: [Nonexudative age-related macular degeneration, right eye, early dry stage] Onset: 06-03-2023 06-03-2023 Chronic Superficial injury; contusion (1 source) Contusion of rib; Translations: [Contusion of right front wall of thorax, subsequent encounter] Episodic Past or Other Problems Problem Classification Problem Date Documented Da te Episodic/Chronic Acute bronchitis (13 sources) Bronchitis; Translations: [Acute bronchitis, unspecified] Onset: 07-02-2017 07-02-2017 Episodic Cardiac dysrhythmias (13 sources) Bradycardia; Translations: [Bradycardia, unspecified] Onset: 07-05-2018 07-05-2018 Episodic Gastrointestinal hemorrhage (2 sources) Rectal hemorrhage; Translations: [Hemorrhage of anus and rectum] Onset: 02-24-2023 Episodic Other diseases of kidney and ureters (13 sources) Cyst of kidney; Translations: [Cyst of kidney, acquired] Onset: 12-27-2019 12-27-2019 Episodic Results Test Name Value Interpretation Reference Range Facil ity Vital Signs Date Time Vital Sign Value Performing Clinician Faci lity 03-02-2023 08:04-0400 Body height 172.7 cm Ji Dixon MD Work Phone: [facility] 03-02-2023 08:04-0400 Body weight 85.73 kg Ji Dixon MD Work Phone: [facility] 03-02-2023 08:04-0400 Diastolic blood pressure 60 mm[Hg] Ji Dixon MD Work Phone: [facility] 03-02-2023 08:04-0400 Heart rate 56 /min Ji Dixon MD Work Phone: [facility] 03-02-2023 08:04-0400 Respiratory rate 12 /min Ji Dixon MD Work Phone: [facility] 03-02-2023 08:04-0400 Systolic blood pressure 130 mm[Hg] Ji Dixon MD Work Phone: [facility] 12-31-2022 13:17-0400 Diastolic blood pressure 65 mm[Hg] Ji Dixon MD Work Phone: [facility] 12-31-2022 13:17-0400 Heart rate 52 /min Ji Dixon MD Work Phone: [facility] 12-31-2022 13:17-0400 Systolic blood pressure 149 mm[Hg] Ji Dixon MD Work Phone: [facility] 12-31-2022 13:06-0400 Body weight 86.64 kg Ji Dixon MD Work Phone: [facility] 12-31-2022 13:06-0400 Respiratory rate 16 /min Ji Dixon MD Work Phone: [facility] 09-01-2022 12:33-0500 Diastolic blood pressure 48 mm[Hg] Ji Dixon MD Work Phone: [facility] 09-01-2022 12:33-0500 Systolic blood pressure 130 mm[Hg] Ji Dixon MD Work Phone: [facility] 09-01-2022 12:09-0500 Body temperature 96.69 [degF] Ji Dixon MD Work Phone: [facility] 09-01-2022 12:09-0500 Body weight 86.64 kg Ji Dixon MD Work Phone: [facility] 09-01-2022 12:09-0500 Heart rate 56 /min Ji Dixon MD Work Phone: [facility] 09-01-2022 12:09-0500 Respiratory rate 16 /min Ji Dixon MD Work Phone: [facility] 04-06-2022 15:12-0400 Diastolic blood pressure 54 mm[Hg] Ji Dixon MD Work Phone: [facility] 04-06-2022 15:12-0400 Systolic blood pressure 126 mm[Hg] Ji Dixon MD Work Phone: [facility] 04-06-2022 14:31-0400 Body temperature 97.3 [degF] Ji Dixon MD Work Phone: [facility] 04-06-2022 14:31-0400 Body weight 88.91 kg Ji Dixon MD Work Phone: [facility] 04-06-2022 14:31-0400 Heart rate 72 /min Ji Dixon MD Work Phone: [facility] 04-06-2022 14:31-0400 Respiratory rate 16 /min Ji Dixon MD Work Phone: [facility] Encounters Encounter Date Encounter Type Care Provider Facility Start: 11-17-2023 Telephone encounter Ji estrada MD Work Phone: [facility] Procedures Date Procedure Procedure Detail Performing Clinician Start: 09-01-2022 PFIZER-BIONTECH COVI D-19 BIVALENT BOOSTER VACCINE, AGE 12+ YR Ji Dixon MD Work Phone: Start: 09-01-2022 INFLUENZA SEASONAL QUADRIVALENT HIGH DOSE AGE 65+ Ji Dixon MD Work Phone: Start: 04-06-2022 PFIZER-BIONTECH COVI D-19 VACCINE, AGE 12+ YR (MEEK TOP) Ji Dixon MD Work Phone: Plan of Treatment Date Care Activity Detail Author Start: 01-02-2029 Urine microalbumin profile [facility] Start: 08-25-2026 Diabetes Screening Diabetes Screening [facility] Start: 02-24-2026 DIABETES SCREEN DIABETES SCREEN [facility] Start: 02-24-2026 Diabetes Screening Diabetes Screening [facility] Start: 09-08-2025 DIABETES SCREEN DIABETES SCREEN [facility] Start: 01-16-2024 DIABETES SCREEN DIABETES SCREEN [facility] Start: 10-18-2023 Advance Directive Discussion Advance Directive Discussion [facility] Start: 10-18-2023 Depression Assessment Depression Assessment [facility] Start: 08-24-2023 End: 11-23-2023 CBC W Auto Differential panel - Blood CBC + DIFF Lab Routine Anemia, unspecified type Expected: 08/24/2023, Expires: 11/23/2023 [facility] Work Phone: Immunizations Immunization Date Immunization Notes Care Provider Fa patrice 06-03-2023 COVID-19 vaccine, ag e 12+ yr, bivalent (PFIZER-BIONTECH) Ji Dixon MD Work Phone: [facility] Work Phone: 09-01-2022 COVID-19 booster vaccine, age 12+ yr, bivalent (PFIZER-BIONTECH) Ji Dixon MD Work Phone: [facility] Work Phone: 09-01-2022 influenza, high-dose , quadrivalent vaccine (FLUZONE HIGH DOSE QUADRIVALENT) Ji Dixon MD Work Phone: [facility] Work Phone: 09-01-2022 influenza virus vacc ine, unspecified formulation Ji Dixon MD Work Phone: [facility] 04-06-2022 COVID-19 vaccine, ag e 12+ yr (PFIZER-BIONTECH - MEEK TOP) Ji Dixon MD Work Phone: [facility] Work Phone: 09-01-2021 COVID-19 original vaccine, age 12+ yr, monovalent (PFIZER-BIONTECH - PURPLE TOP) Ji Dixon MD Work Phone: [facility] Work Phone: 07-24-2021 influenza, high-dose , quadrivalent vaccine (FLUZONE HIGH DOSE QUADRIVALENT) Ji Dixon MD Work Phone: [facility] Work Phone: 12-07-2020 COVID-19 vaccine, ag e 12+ yr (PFIZER-BIONTECH - PURPLE TOP) Ji Dixon MD Work Phone: [facility] Work Phone: 11-19-2020 COVID-19 vaccine, ag e 12+ yr (PFIZER-[employer] PURPLE [facility]) Ji Dixon MD Work Phone: [facility] Work Phone: 08-03-2020 influenza, high-dose , quadrivalent vaccine (FLUZONE HIGH DOSE QUADRIVALENT) Ji Dixon MD Work Phone: [facility] Work Phone: 07-07-2019 influenza, high dose seasonal, preservative-free Ji Dixon MD Work Phone: [facility] 01-02-2019 tetanus toxoid, redu brandon diphtheria toxoid, and acellular pertussis vaccine, adsorbed iJ Dixon MD Work Phone: [facility] Work Phone: 07-27-2018 influenza, high dose seasonal, preservative-free Ji Dixon MD Work Phone: [facility] Work Phone: 07-02-2017 influenza, high dose seasonal, preservative-free Ji Dixon MD Work Phone: [facility] 07-24-2016 influenza, high dose seasonal, preservative-free Ji Dixon MD Work Phone: [facility] Work Phone: 07-02-2016 influenza, high dose seasonal, preservative-free Ji Dixon MD Work Phone: [facility] 07-27-2015 influenza, high dose seasonal, preservative-free Ji Dixon MD Work Phone: [facility] Work Phone: 04-16-2015 pneumococcal conjuga te vaccine, 13 valent Ji Dixon MD Work Phone: [facility] 07-25-2014 influenza, seasonal, injectable Ji Dixon MD Work Phone: [facility] 08-12-2013 influenza virus vacc ine, unspecified formulation Ji Dixon MD Work Phone: [facility] Work Phone: 04-13-2013 pneumococcal polysaccharide vaccine, 23 valent Ji Dixon MD Work Phone: [facility] 07-23-2012 influenza virus vacc ine, unspecified formulation Ji Dixon MD Work Phone: [facility] Work Phone: 07-25-2011 influenza virus vacc ine, unspecified formulation Ji Dixon MD Work Phone: [facility] Work Phone: 08-08-2010 influenza virus vacc ine, unspecified formulation Ji Dixon MD Work Phone: [facility] 07-22-2009 influenza virus vacc ine, unspecified formulation Ji Dixon MD Work Phone: [facility] Work Phone: 08-02-2008 influenza virus vacc ine, unspecified formulation Ji Dixon MD Work Phone: [facility] Work Phone: 12-13-2007 diphtheria and tetan us toxoids, adsorbed for pediatric use Ji Dixon MD Work Phone: [facility] Work Phone: 08-11-2007 influenza virus vacc ine, unspecified formulation Ji Dixon MD Work Phone: [facility] Work Phone: 08-11-2007 pneumococcal polysaccharide vaccine, 23 valent Ji Dixon MD Work Phone: [facility] Work Phone: 06-18-2000 pneumococcal polysaccharide vaccine, 23 valent Ji Dixon MD Work Phone: [facility] Work Phone: 10-18-1994 diphtheria and tetan us toxoids, adsorbed for pediatric use Ji Dixon MD Work Phone: [facility] Work Phone: 07-18-1980 pneumococcal polysaccharide vaccine, 23 valent Ji Dixon MD Work Phone: [facility] Work Phone: Payers Date Payer Category Payer Medicare [id number] 2015 Private Health Insurance HUMANA HUMANA MEDICARE SUPPLEMENT [id number] 2015-Present [phone] [id number] [place] [id number] Indemnity [id number] 2015 Private Health Insurance HUMANA HUMANA MEDICARE SUPPLEMENT [id number] 2015-Present [phone] [place] [id number] Indemnity [id number] 2000 Medicare MEDICARE MEDICAR E A AND B [id number] 2000-Present [phone] [id number] [place] [id number] Medicare [id number] 2000 Medicare MEDICARE MEDICAR E A AND B [id number] 2000-Present [phone] [id number] [place] [id number] Medicare [id number] 2000 Medicare [id number] Social History Date Type Detail Facility Start: 12-31-2017 End: 09-01-2022 Tobacco smoking status NHIS Never smoked tobacco [facility] Start: 07-25-2021 End: 03-02-2023 Alcohol intake Current non-drinker of alcohol (finding) [facility] Start: 1935 Sex Assigned At Not on file [facility] Start: 03-27-2022 End: 09-01-2022 Exposure to SARS-CoV-2 (event) Not sure [facility] Work Phone: Start: 12-31-2017 End: 09-01-2022 Tobacco use and exposure Smokeless tobacco non-user [facility] Work Phone: Start: 06-03-2023 Alcohol intake Current drinke r of alcohol (finding) [facility] Start: 11-11-2022 End: 06-03-2023 Alcohol intake [facility] Work Phone: Start: 11-11-2022 End: 06-03-2023 Alcohol Use Disorder Identification Test - Consumption [AUDIT-C] [facility] Work Phone: How often to you hav e a drink containing alcohol? 2-4 times a month [facility] Work Phone: How many standard dr inks containing alcohol do you have on a typical day? 1 or 2 [facility] Work Phone: How often do you hav e 6 or more drinks on 1 occasion? Never [facility] Work Phone: Adult Depression Scr eening Assessment 0 [facility] Work Phone: Start: 06-03-2023 Alcohol Comment [facility] Clinical Notes 10-09-2014 to 11-18-2023 Telephone Encounter - Dariela Pope RN - 11/18/2023 2:51 PM ESTTelephone Encounter - Ji Dixon MD - 11/18/2023 2:33 PM ESTTelephone Encounter - Gamaliel Montano Ma - 08/24/2023 11:46 AM EST Note Date & Type Note Facility 11-18-2023 Miscellaneous Notes Spoke with patient's son in law, Domingo. Given message from provider's office. He verbalizes understanding. Dariela Pope RN I cannot complete this form for Carol. Spoke to Gutierrez, Carol does not have regular involvement with care for Mildred or Gutierrez. Carmen Ventura LPN Please confirm with Gutierrez that Carol is regularly involved in his and Mildred's care to warrant this paperwork. Pt's son in law Domingo Bond states pt's daughter Carol is asking if pcp would complete FMLA paperwork for her. EMELYN states Carol wants to have something in her file at work in case she needs to call off d/t pt needing care. It would be for pt & his spouse - her chart will contain the same message. Domingo states he will get FMLA paperwork to pcp if this is something he is willing to do. He can be called back at [phone] or [employer] [phone] or home # [phone]. Kristan Vann LPN documented in this encounter [facility] 08-24-2023 Miscellaneous Notes Patient notified, verbalized understanding. Pt calling in as he came in to get his labs drawn this morning and they had . Orders placed and pended. Please call pt when orders are signed. documented in this encounter [facility] 08-19-2023 Miscellaneous Notes Patient has been identified by name and date of : Yes, Provider Dr. Dixon Date 08/19/23 Time 0900 Patient phones for refill(s): Requested Prescriptions Pending Prescriptions Disp Refills metoprolol tartrate, short acting, (LOPRESSOR) 50 mg tablet 180 tablet 3 Sig: Take 1 tablet by mouth two times a day. amLODIPine-benazepril (LOTREL) 10-20 mg per capsule 90 capsule 3 Sig: Take 1 capsule by mouth once daily. Date of last office visit in primary care: 06/03/2023 Date of next office visit in primary care: 12/02/2023 Last 2 Encounter Wt Readings: Date: Wt: 06/03/2023 87.1 kg (192 lb) 03/02/2023 85.7 kg (189 lb) Previous labs/tests for medication: Blood Pressure: BUN (mg/dL) Date Value 02/24/2023 40 01/15/2021 33 Sodium (mmol/L) Date Value 02/24/2023 138 01/15/2021 139 Last 1 Encounter BP Readings: Date: BP: 06/03/2023 116/58 Liver Function: ALT (U/L) Date Value 09/08/2022 8 01/15/2021 10 AST (U/L) Date Value 09/08/2022 17 01/15/2021 19 Please advise. Thank you. Mildred Steele RN. documented in this encounter [facility] 06-03-2023 Note HNO ID: [id number] Author: Ji Dixon MD Service: ? Author Type: Physician Type: Progress Notes Filed: 06/03/2023 8:41 AM Note Text: This note was created using Viewdleriter. Subjective Raghav Guillaume is a 87 year old male. He was doing well, and had no concerns. He was in the ER for skin tears that have healed. His labs needed updating. He had not followed up with oncology since 2021, but his last tumor markers were normal. 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 Review of Systems Constitutional: Negative for fatigue, fever and unexpected weight change. Respiratory: Negative for cough, shortness of breath and wheezing. Cardiovascular: Negative for chest pain, palpitations and leg swelling. Gastrointestinal: Negative for anal bleeding, constipation and diarrhea. Genitourinary: Negative for difficulty urinating, scrotal swelling and testicular pain. Musculoskeletal: Negative for arthralgias. Neurological: Negative for dizziness, syncope and headaches. Psychiatric/Behavioral: Negative. 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 finasteride (PROSCAR) 5 mg tablet Take 1 tablet by mouth once daily. amLODIPine-benazepril (LOTREL) 10-20 mg per capsule Take 1 capsule by mouth once daily. metoprolol tartrate, short acting, (LOPRESSOR) 50 mg tablet Take 1 tablet by mouth twice daily. Promethazine-DM (PHENERGAN-DM) 6.25-15 mg/5 mL syrup 1 -2 tsp q 4 hour prn cough lactobacillus acidophilus 100 mg (1 billion cell) cap(s) Take 1 capsule by mouth once daily. Qxsyxrygbeslk-Zonnecns-Qyjotz (CENTRUM SILVER) Tab Take 1 tablet by mouth once daily. Cholecalciferol, Vitamin D3, 1,000 unit ORAL Cap Take 1 capsule by mouth once daily. No current facility-administered medications for this visit. Objective BP 116/58 (BP Site: Left Arm, BP Position: Sitting, BP Cuff Size: Large Adult) Pulse (!) 48 Resp 12 Ht 174.2 cm (5' 8.6 ) Wt 87.1 kg (192 lb) BMI 28.69 kg/m? Physical Exam Constitutional: General: He is not in acute distress. Appearance: He is not ill-appearing. HENT: Head: Normocephalic. Eyes: Extraocular Movements: Extraocular movements intact. Conjunctiva/sclera: Conjunctivae normal. Cardiovascular: Rate and Rhythm: Regular rhythm. Bradycardia present. Heart sounds: No murmur heard. No gallop. Pulmonary: Breath sounds: Normal breath sounds. No wheezing or rales. Abdominal: Palpations: Abdomen is soft. Tenderness: There is no abdominal tenderness. Musculoskeletal: Right lower leg: No edema. Left lower leg: No edema. Lymphadenopathy: Cervical: No cervical adenopathy. Neurological: General: No focal deficit present. Mental Status: He is alert and oriented to person, place, and time. Gait: Gait normal. Assessment and Plan 1. Medicare annual wellness visit, subsequent - ICD9: V70.0, ICD10: Z00.00 (primary diagnosis) See wellness note. 2. 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 3. Malignant neoplasm of left testis, unspecified whether descended or undescended (HCC) - ICD9: 186.9, ICD10: C62.92 [place]. 4. Essential hypertension - ICD9: 401.9, ICD10: I10 - Controlled 5. Stage 3b chronic kidney disease (HCC) - ICD9: 585.3, ICD10: N18.32 Labs to be rechecked. - Counseled on avoiding NSAIDs, adequate hydration 6. Bradycardia - ICD9: 427.89, ICD10: R00.1 Asymptomatic, chronic. 7. Mixed hyperlipidemia - ICD9: 272.2, ICD10: E78.2 - Control undetermined, due for labs - Continue current medications 8. BPH with obstruction/lower urinary tract symptoms - ICD9: 600.01, 599.69, ICD10: N40.1, N13.8 Controlled. 9. Need for COVID-19 vaccine - ICD9: V04.89, ICD10: Z23 - PFIZER-BIONTECH COVID-19 BIVALENT VACCINE, AGE 12+ YR Ji Dixon MD [facility] 06-03-2023 Note HNO ID: [id number] Author: Ji Dixon MD Service: ? Author Type: Physician Type: Progress Notes Filed: 06/03/2023 8:41 AM Note Text: Raghav Guillaume is a 87 year old male here for a Medicare wellness visit. Health Risk Assessment In general, health is: Good Concerns with balance:Not at all Concerns with teeth or dentures:Not at all Concerns with sexual function:Not at all [place] anxious, stressed, angry, irritable, lonely, isolated, or had thoughts of hurting themself: Not at all Has little interest or pleasure in doing things: Not at all Bothered by feeling down, depressed, or hopeless: Not at all Needs help with grocery shopping, cooking, housework, bathing, grooming, dressing, eating, sitting or standing, walking, using the toilet, handling finances, taking medications, using the telephone, or driving: No Following safety precautions in the home environment and vehicle: removed throw rugs from floors, installed grab bars in the bathroom, handrails in stairwells, having adequate lighting, wearing seatbelt at all times?: Yes Smokes cigarettes, vapes, or chew tobacco: No Eats healthy foods including fruits, vegetables, whole grains, and fiber-rich foods: Nearly every day Number of days per week engages in exercise: 7 days Average alcohol consumption: Never Current Providers Dr. Tyler Bravo, ophthalmology. [facility]. Medical/Family history review Reviewed and updated problem list, medical/surgical/family/social history, medications, and allergies. Opioid use review Patient is not currently using opioids. Depression screening Depression Screening PHQ-2 Score 03/02/2023 0 Depression screening tool completed and reviewed. Based on score and interview, patient is not at risk for depression. Screening tool discussed with patient, and I recommended no further intervention at this time. Cognitive screening Mini Cog Score: 4 Functional Observation Was the patient's timed Up AND Go test unsteady or ? 12 seconds? No Advance Care Planning End of Life planning discussed, including patient's advanced directive wishes: Yes Measurements BP 116/58 Pulse 48 Resp 12 Ht 5' 8.6 (1.74m) Wt 192 lb (87.1kg) BMI 28.70 kg/(m2). Visual acuity (required for Welcome to Medicare): Right: 20/70 Left: 20/ 40 Both: 20/50 Hearing Evaluation: wears hearing aids Assessment/Plan Medicare annual wellness visit, subsequent (Z00.00) - Counseled on healthy diet and regular exercise - Discussed need for and benefit of weight loss. BMI 28.68 kg/(m2) - Fall avoidance - Vaccines recommended COVID-19 and Shingrix at pharmacy - Depression screening [facility] 03-02-2023 Note HNO ID: [id number] Author: Ji Dixon MD Service: ? Author Type: Physician Type: Progress Notes Filed: 03/02/2023 9:15 AM Note Text: This note was created using [employer]. Subjective Patient presents with: F/U 6 months Raghav Colette Guillaume is a 87 year old male. Appointment was too early for a wellness visit. However, his mini Cog was abnormal. He denied memory disturbance. He was [facility] his at [facility]. He felt well. Rectal bleeding has not recurred. Testicular cancer was in remission. Review of Systems Constitutional: Negative for fatigue, fever and unexpected weight change. Respiratory: Negative for shortness of breath. Cardiovascular: Negative for chest pain, palpitations and leg swelling. Gastrointestinal: Negative for abdominal pain and blood in stool. Genitourinary: Negative for difficulty urinating. Neurological: Negative. ACTIVE PROBLEM LIST Essential Hypertension Bph With Obstruction/Lower Urinary Tract Symptoms Hyperlipidemia Spleen absent(remote splenectomy) Myopic Degeneration, Bilateral Bronchitis With Bronchospasm Ckd (Chronic Kidney Disease) Stage 3, Gfr 30-59 Ml/Min (Hcc) Bradycardia Obesity, Class I, Bmi 30-34.9 Kidney Cysts Malignant Neoplasm of Left Testis (Hcc) Social History Tobacco Use Smoking status: Never Smokeless tobacco: Never Vaping Use Vaping Use: Never used Substance Use Topics Alcohol use: No Drug use: No Current Outpatient Medications Medication Sig simvastatin (ZOCOR) 40 mg tablet Take 1 tablet by mouth daily at bedtime. finasteride (PROSCAR) 5 mg tablet Take 1 tablet by mouth once daily. amLODIPine-benazepril (LOTREL) 10-20 mg per capsule Take 1 capsule by mouth once daily. metoprolol tartrate, short acting, (LOPRESSOR) 50 mg tablet Take 1 tablet by mouth twice daily. Promethazine-DM (PHENERGAN-DM) 6.25-15 mg/5 mL syrup 1 -2 tsp q 4 hour prn cough lactobacillus acidophilus 100 mg (1 billion cell) cap(s) Take 1 capsule by mouth once daily. Irznslehgkpwn-Fdwefrhv-Sjreju (CENTRUM SILVER) Tab Take 1 tablet by mouth once daily. Cholecalciferol, Vitamin D3, 1,000 unit ORAL Cap Take 1 capsule by mouth once daily. No current facility-administered medications for this visit. Objective BP 130/60 (BP Site: Left Arm, BP Position: Sitting, BP Cuff Size: Large Adult) Pulse (!) 56 Resp 12 Ht 172.7 cm (5' 8 ) Wt 85.7 kg (189 lb) BMI 28.74 kg/m? Physical Exam Constitutional: General: He is not in acute distress. Appearance: He is not ill-appearing. Cardiovascular: Rate and Rhythm: Regular rhythm. Bradycardia present. Heart sounds: No murmur heard. No gallop. Pulmonary: Breath sounds: Normal breath sounds. Musculoskeletal: Right lower leg: No edema. Left lower leg: No edema. Neurological: General: No focal deficit present. Mental Status: He is alert. Psychiatric: Mood and Affect: Mood normal. Depression Screening 12/31/2017 01/02/2019 09/01/2022 03/02/2023 PHQ-2 Score 0 0 0 0 Depression screening tool completed and reviewed. Based on score and interview, patient is not at risk for depression. Screening tool discussed with patient, and I recommended no further intervention at this time. Assessment and Plan 1. Malignant neoplasm of left testis, unspecified whether descended or undescended (HCC) - ICD9: 186.9, ICD10: C62.92 (primary diagnosis) He is on surveillance by Dr. Whatley. This may be overdue. Record will be retrieved. 2. Essential hypertension - ICD9: 401.9, ICD10: I10 - good control - Continue current medication(s) - Goal of BP <130/80 3. Stage 3b chronic kidney disease (HCC) - ICD9: 585.3, ICD10: N18.32 - eGFR: Stable - Counseled on avoiding regular use of NSAIDs, adequate hydration, potential risk of IV dye 4. Mixed hyperlipidemia - ICD9: 272.2, ICD10: E78.2 - to be determined upon return of lab results - Continue current medication. - COMP METABOLIC PANEL - LIPID PANEL BASIC 5. Mild cognitive impairment - ICD9: 331.83, ICD10: G31.84 Mini Cog 2/5 x 2. Patient denied any issues. We agreed to observe at this time. - TSH BLD - VITAMIN B12 BLOOD 6. Anemia, unspecified type - ICD9: 285.9, ICD10: D64.9 New. Recent rectal bleeding. Monitor. - FECAL OCCULT BLOOD TEST - CBC Ji Dixon MD [facility] 03-02-2023 Instructions Ji Dixon MD - 03/02/2023 8:33 AM EDT FASTING BLOOD WORK IN 3 MONTHS. SUBMIT STOOL TEST SOON. documented in this encounter [facility] 03-02-2023 History of Presen t illness Narrative This note was created using [employer]. Subjective Patient presents with: F/U 6 months Raghav Guillaume is a 87 year old male. Appointment was too early for a wellness visit. However, his mini Cog was abnormal. He denied memory disturbance. He was visiting his at the [facility] daily. He felt well. Rectal bleeding has not recurred. Testicular cancer was in remission. Review of Systems Constitutional: Negative for fatigue, fever and unexpected weight change. Respiratory: Negative for shortness of breath. Cardiovascular: Negative for chest pain, palpitations and leg swelling. Gastrointestinal: Negative for abdominal pain and blood in stool. Genitourinary: Negative for difficulty urinating. Neurological: Negative. ACTIVE PROBLEM LIST Essential Hypertension Bph With Obstruction/Lower Urinary Tract Symptoms Hyperlipidemia Spleen absent(remote splenectomy) Myopic Degeneration, Bilateral Bronchitis With Bronchospasm Ckd (Chronic Kidney Disease) Stage 3, Gfr 30-59 Ml/Min (Hcc) Bradycardia Obesity, Class I, Bmi 30-34.9 Kidney Cysts Malignant Neoplasm of Left Testis (Hcc) Social History Tobacco Use Smoking status: Never Smokeless tobacco: Never Vaping Use Vaping Use: Never used Substance Use Topics Alcohol use: No Drug use: No Current Outpatient Medications Medication Sig simvastatin (ZOCOR) 40 mg tablet Take 1 tablet by mouth daily at bedtime. finasteride (PROSCAR) 5 mg tablet Take 1 tablet by mouth once daily. amLODIPine-benazepril (LOTREL) 10-20 mg per capsule Take 1 capsule by mouth once daily. metoprolol tartrate, short acting, (LOPRESSOR) 50 mg tablet Take 1 tablet by mouth twice daily. Promethazine-DM (PHENERGAN-DM) 6.25-15 mg/5 mL syrup 1 -2 tsp q 4 hour prn cough lactobacillus acidophilus 100 mg (1 billion cell) cap(s) Take 1 capsule by mouth once daily. Gyyfqspwzsikq-Acxmlizg-Iquyiq (CENTRUM SILVER) Tab Take 1 tablet by mouth once daily. Cholecalciferol, Vitamin D3, 1,000 unit ORAL Cap Take 1 capsule by mouth once daily. No current facility-administered medications for this visit. Objective BP 130/60 (BP Site: Left Arm, BP Position: Sitting, BP Cuff Size: Large Adult) Pulse (!) 56 Resp 12 Ht 172.7 cm (5' 8 ) Wt 85.7 kg (189 lb) BMI 28.74 kg/m Physical Exam Constitutional: General: He is not in acute distress. Appearance: He is not ill-appearing. Cardiovascular: Rate and Rhythm: Regular rhythm. Bradycardia present. Heart sounds: No murmur heard. No gallop. Pulmonary: Breath sounds: Normal breath sounds. Musculoskeletal: Right lower leg: No edema. Left lower leg: No edema. Neurological: General: No focal deficit present. Mental Status: He is alert. Psychiatric: Mood and Affect: Mood normal. Depression Screening 12/31/2017 01/02/2019 09/01/2022 03/02/2023 PHQ-2 Score 0 0 0 0 Depression screening tool completed and reviewed. Based on score and interview, patient is not at risk for depression. Screening tool discussed with patient, and I recommended no further intervention at this time. Assessment and Plan 1. Malignant neoplasm of left testis, unspecified whether descended or undescended (HCC) - ICD9: 186.9, ICD10: C62.92 (primary diagnosis) He is on surveillance by Dr. Whatley. This may be overdue. Record will be retrieved. 2. Essential hypertension - ICD9: 401.9, ICD10: I10 - good control - Continue current medication(s) - Goal of BP <130/80 3. Stage 3b chronic kidney disease (HCC) - ICD9: 585.3, ICD10: N18.32 - eGFR: Stable - Counseled on avoiding regular use of NSAIDs, adequate hydration, potential risk of IV dye 4. Mixed hyperlipidemia - ICD9: 272.2, ICD10: E78.2 - to be determined upon return of lab results - Continue current medication. - COMP METABOLIC PANEL - LIPID PANEL BASIC 5. Mild cognitive impairment - ICD9: 331.83, ICD10: G31.84 Mini Cog 2/5 x 2. Patient denied any issues. We agreed to observe at this time. - TSH BLD - VITAMIN B12 BLOOD 6. Anemia, unspecified type - ICD9: 285.9, ICD10: D64.9 New. Recent rectal bleeding. Monitor. - FECAL OCCULT BLOOD TEST - CBC Ji Dixon MD documented in this encounter [facility] 12-31-2022 Note HNO ID: [id number] Author: Ji Dixon MD Service: ? Author Type: Physician Type: Progress Notes Filed: 01/01/2023 8:45 AM Note Text: This note was created using [employer]. Subjective Raghav Guillaume is a 87 year old male was here for scant blood in his stool this morning, otherwise painless. This has not recurred. He did not feel ill. Review of Systems Constitutional: Negative for fatigue and fever. Respiratory: Negative for shortness of breath. Cardiovascular: Negative for chest pain. Gastrointestinal: Negative for abdominal pain, constipation, diarrhea, nausea and vomiting. Genitourinary: Negative. Neurological: Negative for dizziness and headaches. ACTIVE PROBLEM LIST Essential Hypertension Bph With Obstruction/Lower Urinary Tract Symptoms Hyperlipidemia Spleen absent(remote splenectomy) Myopic Degeneration, Bilateral Bronchitis With Bronchospasm Ckd (Chronic Kidney Disease) Stage 3, Gfr 30-59 Ml/Min (Hcc) Bradycardia Obesity, Class I, Bmi 30-34.9 Kidney Cysts Malignant Neoplasm of Left Testis (Hcc) Current Outpatient Medications Medication Sig simvastatin (ZOCOR) 40 mg tablet Take 1 tablet by mouth daily at bedtime. finasteride (PROSCAR) 5 mg tablet Take 1 tablet by mouth once daily. amLODIPine-benazepril (LOTREL) 10-20 mg per capsule Take 1 capsule by mouth once daily. metoprolol tartrate, short acting, (LOPRESSOR) 50 mg tablet Take 1 tablet by mouth twice daily. Promethazine-DM (PHENERGAN-DM) 6.25-15 mg/5 mL syrup 1 -2 tsp q 4 hour prn cough lactobacillus acidophilus 100 mg (1 billion cell) cap(s) Take 1 capsule by mouth once daily. Ijuskznwrdeef-Zibhmxja-Buhbqv (CENTRUM SILVER) Tab Take 1 tablet by mouth once daily. Cholecalciferol, Vitamin D3, 1,000 unit ORAL Cap Take 1 capsule by mouth once daily. No current facility-administered medications for this visit. Objective BP 149/65 (BP Site: Left Arm, BP Position: Sitting, BP Cuff Size: Large Adult) Pulse (!) 52 Resp 16 Wt 86.6 kg (191 lb) BMI 29.04 kg/m? Physical Exam Constitutional: General: He is not in acute distress. Appearance: He is not diaphoretic. Cardiovascular: Rate and Rhythm: Regular rhythm. Bradycardia present. Heart sounds: No murmur heard. No gallop. Pulmonary: Breath sounds: Normal breath sounds. Abdominal: Palpations: Abdomen is soft. There is no mass. Tenderness: There is no abdominal tenderness. Genitourinary: Rectum: External hemorrhoid present. No mass or tenderness. Normal anal tone. Comments: Soft, brown stool, no gross blood. Skin: General: Skin is warm and dry. Neurological: Mental Status: He is alert. Assessment and Plan 1. Rectal bleeding - ICD9: 569.3, ICD10: K62.5 (primary diagnosis) Probably hemorrhoidal. We agreed to observe. Return for recurrence or go to ER if worse. - CBC 2. Essential hypertension - ICD9: 401.9, ICD10: I10 - suboptimal control - No change for now. - BASIC METABOLIC PNL 3. Stage 3b chronic kidney disease (HCC) - ICD9: 585.3, ICD10: N18.32 Recheck. Ji Dixon MD [facility] 12-31-2022 Instructions Ji Dixon MD - 12/31/2022 1:35 PM EDT BLOOD WORK IN 7 WEEKS, NO NEED TO FAST. RETURN IF WITH MORE BLEEDING. documented in this encounter [facility] 12-31-2022 History of Presen t illness Narrative This note was created using Viewdleriter. Subjective Raghav Guillaume is a 87 year old male was here for scant blood in his stool this morning, otherwise painless. This has not recurred. He did not feel ill. Review of Systems Constitutional: Negative for fatigue and fever. Respiratory: Negative for shortness of breath. Cardiovascular: Negative for chest pain. Gastrointestinal: Negative for abdominal pain, constipation, diarrhea, nausea and vomiting. Genitourinary: Negative. Neurological: Negative for dizziness and headaches. ACTIVE PROBLEM LIST Essential Hypertension Bph With Obstruction/Lower Urinary Tract Symptoms Hyperlipidemia Spleen absent(remote splenectomy) Myopic Degeneration, Bilateral Bronchitis With Bronchospasm Ckd (Chronic Kidney Disease) Stage 3, Gfr 30-59 Ml/Min (Hcc) Bradycardia Obesity, Class I, Bmi 30-34.9 Kidney Cysts Malignant Neoplasm of Left Testis (Hcc) Current Outpatient Medications Medication Sig simvastatin (ZOCOR) 40 mg tablet Take 1 tablet by mouth daily at bedtime. finasteride (PROSCAR) 5 mg tablet Take 1 tablet by mouth once daily. amLODIPine-benazepril (LOTREL) 10-20 mg per capsule Take 1 capsule by mouth once daily. metoprolol tartrate, short acting, (LOPRESSOR) 50 mg tablet Take 1 tablet by mouth twice daily. Promethazine-DM (PHENERGAN-DM) 6.25-15 mg/5 mL syrup 1 -2 tsp q 4 hour prn cough lactobacillus acidophilus 100 mg (1 billion cell) cap(s) Take 1 capsule by mouth once daily. Xsqvfdycriuic-Zdevjcxo-Oohytk (CENTRUM SILVER) Tab Take 1 tablet by mouth once daily. Cholecalciferol, Vitamin D3, 1,000 unit ORAL Cap Take 1 capsule by mouth once daily. No current facility-administered medications for this visit. Objective BP 149/65 (BP Site: Left Arm, BP Position: Sitting, BP Cuff Size: Large Adult) Pulse (!) 52 Resp 16 Wt 86.6 kg (191 lb) BMI 29.04 kg/m Physical Exam Constitutional: General: He is not in acute distress. Appearance: He is not diaphoretic. Cardiovascular: Rate and Rhythm: Regular rhythm. Bradycardia present. Heart sounds: No murmur heard. No gallop. Pulmonary: Breath sounds: Normal breath sounds. Abdominal: Palpations: Abdomen is soft. There is no mass. Tenderness: There is no abdominal tenderness. Genitourinary: Rectum: External hemorrhoid present. No mass or tenderness. Normal anal tone. Comments: Soft, brown stool, no gross blood. Skin: General: Skin is warm and dry. Neurological: Mental Status: He is alert. Assessment and Plan 1. Rectal bleeding - ICD9: 569.3, ICD10: K62.5 (primary diagnosis) Probably hemorrhoidal. We agreed to observe. Return for recurrence or go to ER if worse. - CBC 2. Essential hypertension - ICD9: 401.9, ICD10: I10 - suboptimal control - No change for now. - BASIC METABOLIC PNL 3. Stage 3b chronic kidney disease (HCC) - ICD9: 585.3, ICD10: N18.32 Recheck. Ji Dixon MD documented in this encounter [facility] 12-31-2022 Miscellaneous Notes Protocol recommends see pcp in 3 days. Scheduled appt. Reason for Disposition MILD rectal bleeding (more than just a few drops or streaks) Answer Assessment - Initial Assessment Questions 1. APPEARANCE of BLOOD: Red on the stool. 2. AMOUNT: Small amount 3. FREQUENCY: Once today 4. ONSET: This morning 5. DIARRHEA: No 6. CONSTIPATION: No 7. RECURRENT SYMPTOMS: Once about 5 years - never found out why. Does not have hemorroids. 8. BLOOD THINNERS: No 9. OTHER SYMPTOMS: No symptoms 10. : N/A Protocols used: Rectal Npqrhcna-IIEKC-QX documented in this encounter [facility] 12-03-2022 Miscellaneous Notes Patient has been identified by name and date of : Yes, Patient phones for refill(s): Requested Prescriptions Pending Prescriptions Disp Refills simvastatin (ZOCOR) 40 mg tablet 90 tablet 3 Sig: Take 1 tablet by mouth daily at bedtime. finasteride (PROSCAR) 5 mg tablet 90 tablet 3 Sig: Take 1 tablet by mouth once daily. Date of last office visit in primary care: 09/01/2022 Annual: 03/02/2023 Last 2 Encounter Wt Readings: Date: Wt: 09/01/2022 86.6 kg (191 lb) 04/06/2022 88.9 kg (196 lb) Previous labs/tests for medication: Cholesterol: HDL Cholesterol (mg/dL) Date Value 01/15/2021 42 HDL Cholesterol, Nonfasting (mg/dL) Date Value 09/08/2022 40 LDL Cholesterol (mg/dL) Date Value 01/15/2021 77 LDL Cholesterol, Nonfasting (mg/dL) Date Value 09/08/2022 54 ALT (U/L) Date Value 09/08/2022 8 01/15/2021 10 Non HDL Cholesterol, Nonfasting (mg/dL) Date Value 09/08/2022 71 Non HDL Cholesterol (mg/dL) Date Value 01/15/2021 94 Please advise. Thank you. Carmen Ventura LPN Patient has been identified by name and date of : Yes Requested Prescriptions Pending Prescriptions Disp Refills simvastatin (ZOCOR) 40 mg tablet 90 tablet 3 Sig: Take 1 tablet by mouth daily at bedtime. finasteride (PROSCAR) 5 mg tablet 90 tablet 3 Sig: Take 1 tablet by mouth once daily. RX INSTRUCTIONS: Patient aware RX will be sent to pharmacy. No need to notify patient. Cami Oneill Pss documented in this encounter [facility] 09-09-2022 Miscellaneous Notes Patient notified. Carmen Ventura LPN Images from the original note were not included. Left message for pt to call PCP office for provider's lab result message below. COPIED MESSAGE: Ji Dixon MD P Wstr Im Dixon Pool Test results are okay. CKD stable. Sydni Baez RN documented in this encounter [facility] 09-01-2022 Note HNO ID: [id number] Author: Ji Dixon MD Service: ? Author Type: Physician Type: Progress Notes Filed: 09/03/2022 12:53 PM Note Text: This note was created using Viewdleriter. Subjective Raghav Guillaume is a 87 year old male. He was doing well and had no concerns. He was taking his medications. He lived alone now as Mildred was now in an ECF. His labs needed updating. He has been following with [facility]ology in [place] for testicular cancer s/p radical orchiectomy and to date has MALCOLM. Review of Systems Constitutional: Negative. Respiratory: Negative. Cardiovascular: Negative. Gastrointestinal: Negative. Genitourinary: Negative. Neurological: Negative. ACTIVE PROBLEM LIST Essential Hypertension Bph With Obstruction/Lower Urinary Tract Symptoms Hyperlipidemia Spleen absent(remote splenectomy) Myopic Degeneration, Bilateral Bronchitis With Bronchospasm Ckd (Chronic Kidney Disease) Stage 3, Gfr 30-59 Ml/Min (Hcc) Bradycardia Obesity, Class I, Bmi 30-34.9 Kidney Cysts Malignant Neoplasm of Left Testis (Hcc) Objective BP 138/54 (BP Site: Left Arm, BP Position: Sitting, BP Cuff Size: Large Adult) Pulse (!) 56 Temp (!) 35.9 ?C (96.7 ?F) (Temporal) Resp 16 Wt 86.6 kg (191 lb) BMI 29.04 kg/m? Physical Exam Constitutional: Appearance: Normal appearance. Eyes: Extraocular Movements: Extraocular movements intact. Conjunctiva/sclera: Conjunctivae normal. Cardiovascular: Rate and Rhythm: Normal rate and regular rhythm. Heart sounds: No murmur heard. No gallop. Pulmonary: Effort: Pulmonary effort is normal. Breath sounds: Normal breath sounds. Abdominal: General: There is no distension. Tenderness: There is no abdominal tenderness. Musculoskeletal: Right lower leg: No edema. Left lower leg: No edema. Neurological: General: No focal deficit present. Mental Status: He is alert. Gait: Gait normal. Psychiatric: Attention and Perception: Attention normal. Mood and Affect: Mood is elated. Speech: Speech is rapid and pressured. Assessment and Plan 1. Essential hypertension - ICD9: 401.9, ICD10: I10 (primary diagnosis) - fair control - Continue current medication(s) - Encouraged dietary sodium restriction/DASH diet - Recommended regular aerobic exercise. - Goal of BP <130/80 - CBC 2. Need for vaccination - ICD9: V05.9, ICD10: Z23 - [employer] COVID-19 BIVALENT BOOSTER VACCINE, AGE 12+ YR 3. Need for influenza vaccination - ICD9: V04.81, ICD10: Z23 - INFLUENZA SEASONAL QUADRIVALENT HIGH DOSE AGE 65+ 4. Mixed hyperlipidemia - ICD9: 272.2, ICD10: E78.2 - to be determined upon return of lab results - Continue current medication. - LIPID PANEL, NONFASTING 5. Stage 3b chronic kidney disease (HCC) - ICD9: 585.3, ICD10: N18.32 eGFR needs repeat. - Counseled on avoiding regular use of NSAIDs, adequate hydration, potential risk of IV dye - COMP METABOLIC PANEL Ji Dixon MD [facility] 09-01-2022 Instructions Ji Dixon MD - 09/01/2022 12:37 PM EST BLOOD WORK TODAY. documented in this encounter [facility] 09-01-2022 History of Presen t illness Narrative This note was created using [employer]. Subjective Raghav Guillaume is a 87 year old male. He was doing well and had no concerns. He was taking his medications. He lived alone now as Mildred was now in an ECF. His labs needed updating. He has been following with [facility] in [place] for testicular cancer s/p radical orchiectomy and to date has MALCOLM. Review of Systems Constitutional: Negative. Respiratory: Negative. Cardiovascular: Negative. Gastrointestinal: Negative. Genitourinary: Negative. Neurological: Negative. ACTIVE PROBLEM LIST Essential Hypertension Bph With Obstruction/Lower Urinary Tract Symptoms Hyperlipidemia Spleen absent(remote splenectomy) Myopic Degeneration, Bilateral Bronchitis With Bronchospasm Ckd (Chronic Kidney Disease) Stage 3, Gfr 30-59 Ml/Min (Hcc) Bradycardia Obesity, Class I, Bmi 30-34.9 Kidney Cysts Malignant Neoplasm of Left Testis (Hcc) Objective BP 138/54 (BP Site: Left Arm, BP Position: Sitting, BP Cuff Size: Large Adult) Pulse (!) 56 Temp (!) 35.9 C (96.7 F) (Temporal) Resp 16 Wt 86.6 kg (191 lb) BMI 29.04 kg/m Physical Exam Constitutional: Appearance: Normal appearance. Eyes: Extraocular Movements: Extraocular movements intact. Conjunctiva/sclera: Conjunctivae normal. Cardiovascular: Rate and Rhythm: Normal rate and regular rhythm. Heart sounds: No murmur heard. No gallop. Pulmonary: Effort: Pulmonary effort is normal. Breath sounds: Normal breath sounds. Abdominal: General: There is no distension. Tenderness: There is no abdominal tenderness. Musculoskeletal: Right lower leg: No edema. Left lower leg: No edema. Neurological: General: No focal deficit present. Mental Status: He is alert. Gait: Gait normal. Psychiatric: Attention and Perception: Attention normal. Mood and Affect: Mood is elated. Speech: Speech is rapid and pressured. Assessment and Plan 1. Essential hypertension - ICD9: 401.9, ICD10: I10 (primary diagnosis) - fair control - Continue current medication(s) - Encouraged dietary sodium restriction/DASH diet - Recommended regular aerobic exercise. - Goal of BP <130/80 - CBC 2. Need for vaccination - ICD9: V05.9, ICD10: Z23 - [employer] COVID-19 BIVALENT BOOSTER VACCINE, AGE 12+ YR 3. Need for influenza vaccination - ICD9: V04.81, ICD10: Z23 - INFLUENZA SEASONAL QUADRIVALENT HIGH DOSE AGE 65+ 4. Mixed hyperlipidemia - ICD9: 272.2, ICD10: E78.2 - to be determined upon return of lab results - Continue current medication. - LIPID PANEL, NONFASTING 5. Stage 3b chronic kidney disease (HCC) - ICD9: 585.3, ICD10: N18.32 eGFR needs repeat. - Counseled on avoiding regular use of NSAIDs, adequate hydration, potential risk of IV dye - COMP METABOLIC PANEL Ji Dixon MD documented in this encounter [facility] 08-18-2022 Miscellaneous Notes Patient has been identified by name and date of : Yes Patient phones for refill(s): Requested Prescriptions Pending Prescriptions Disp Refills amLODIPine-benazepril (LOTREL) 10-20 mg per capsule 90 capsule 3 Sig: Take 1 capsule by mouth once daily. metoprolol tartrate, short acting, (LOPRESSOR) 50 mg tablet 180 tablet 3 Sig: Take 1 tablet by mouth twice daily. Date of last office visit in primary care: 04/06/22 next apt 09/01/22 Last 2 Encounter Wt Readings Date: Wt: 04/06/2022 88.9 kg (196 lb) 07/24/2021 90.3 kg (199 lb) Previous labs/tests for medication: Blood Pressure: BUN (mg/dL) Date Value 01/15/2021 33 Sodium (mmol/L) Date Value 01/15/2021 139 Last 1 Encounter BP Readings: Date: BP: 04/06/2022 126/54 Thank you. Felecia Santillan LPN documented in this encounter [facility] 04-06-2022 Instructions Ji Dixon MD - 04/06/2022 3:01 PM EDT FASTING BLOOD WORK SOON. SHINGLES VACCINE (2 DOSES) RECOMMENDED. GET AT YOUR PHARMACY. documented in this encounter [facility] 04-06-2022 History of Presen t illness Narrative Medicare Yearly Visit Medical B eligibilty date 05/18/2000 Date of last exam 01/20/2021 PAST MEDICAL HISTORY Diagnosis Date Acute lower GI bleeding 06/06/2019 Anemia, unspecified 06/06/2019 Bacterial infection due to E. 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 Observation Malignant neoplasm of left testis (HCC) 05/23/2021 Dr. Lock, urology. Dr. Whatley, oncology. Nonspecific (abnormal) findings on radiological and other examination of gastrointestinal tract Spleen absent(remote splenectomy) 06/03/2013 Ureteral stone 02/10/2012 PAST SURGICAL HISTORY Procedure Laterality Date APPENDECTOMY 1960 COLONOSCOP W/ OR W/O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 Acute [place] 08/13/2009 11/13/2009 Bladder neck obstruction 06/28/200812/2016 Displacement of lumbar inter vertebral disc without myelopathy 06/25/2008 01/18/2017 Nocturia 04/22/2006 01/18/2017 Diverticulosis of colon (wit hout mention of hemorrhage) 01/18/2017 Overview: Diverticulosis documented as of this encounter (statuses as of 11/19/2023) [facility] Diagnosis Diverticulitis Diverticulitis of colon (without mention of hemorrhage) [facility] Diagnosis Medicare annual wellness visit, subsequent- Primary Routine general medical examination at a health care facility Essential hypertension Unspecified essential hypertension Stage 3b chronic kidney disease (HCC) Mixed hyperlipidemia Accidental fall, subsequent encounter Contusion of rib on right side, subsequent encounter Need for COVID-19 vaccine [facility] Essential hypertension- Primary Unspecified essential hypertension Need for vaccination Need for prophylactic vaccination and inoculation against unspecified single disease Need for influenza vaccination Need for prophylactic vaccination and inoculation against influenza Mixed hyperlipidemia Stage 3b chronic kidney disease (HCC) [facility] Kidney stones- Primary Calculus of kidney BPH with obstruction/lower urinary tract symptoms Hypertrophy of prostate with urinary obstruction and other lower urinary tract symptoms (LUTS) [facility] Diagnosis 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) [facility] Rectal bleeding- Primary Hemorrhage of rectum and anus Essential hypertension Unspecified essential hypertension Stage 3b chronic kidney disease (HCC) [facility] Diagnosis Malignant neoplasm of left testis, unspecified whether descended or undescended (HCC)- Primary Essential hypertension Unspecified essential hypertension Stage 3b chronic kidney disease (HCC) Mixed hyperlipidemia Mild cognitive impairment Mild cognitive impairment, so stated Anemia, unspecified type [facility] Diagnosis Mild cognitive impairment- Primary Mild cognitive impairment, so stated Mixed hyperlipidemia Anemia, unspecified type documented in this encounter [facility] Advance Directives Documents on File Type Date Recorded Patient Travel Professional Expl anation Advance Directive(s) 11/14/2009 8:47 PM Summary Purpose Family History No Family History Records Found Additional Source Comments Source Comments (unrecognize d section and content) In the event this informatio n is protected by the Federal Confidentiality of Alcohol and Drug Abuse Patient Records regulations: The Federal rules restrict any use of the information to criminally investigate or prosecute any alcohol or drug abuse patient.[facility] the event this information is protected by the Federal Confidentiality of Alcohol and Drug Abuse Patient Records regulations: The Federal rules restrict any use of the information to criminally investigate or prosecute any alcohol or drug abuse patient.[facility] the event this information is protected by the Federal Confidentiality of Alcohol and Drug Abuse Patient Records regulations: The Federal rules restrict any use of the information to criminally investigate or prosecute any alcohol or drug abuse patient.[facility] the event this information is protected by the Federal Confidentiality of Alcohol and Drug Abuse Patient Records regulations: The Federal rules restrict any use of the information to criminally investigate or prosecute any alcohol or drug abuse patient.[facility] the event this information is protected by the Federal Confidentiality of Alcohol and Drug Abuse Patient Records regulations: The Federal rules restrict any use of the information to criminally investigate or prosecute any alcohol or drug abuse patient.[facility] the event this information is protected by the Federal Confidentiality of Alcohol and Drug Abuse Patient Records regulations: The Federal rules restrict any use of the information to criminally investigate or prosecute any alcohol or drug abuse patient.[facility] the event this information is protected by the Federal Confidentiality of Alcohol and Drug Abuse Patient Records regulations: The Federal rules restrict any use of the information to criminally investigate or prosecute any alcohol or drug abuse patient.[facility] the event this information is protected by the Federal Confidentiality of Alcohol and Drug Abuse Patient Records regulations: The Federal rules restrict any use of the information to criminally investigate or prosecute any alcohol or drug abuse patient.[facility] Hospital[facility] the event this information is protected by the Federal Confidentiality of Alcohol and Drug Abuse Patient Records regulations: The Federal rules restrict any use of the information to criminally investigate or prosecute any alcohol or drug abuse patient.[facility] the event this information is protected by the Federal Confidentiality of Alcohol and Drug Abuse Patient Records regulations: The Federal rules restrict any use of the information to criminally investigate or prosecute any alcohol or drug abuse patient.[facility] Hospital[facility] the event this information is protected by the Federal Confidentiality of Alcohol and Drug Abuse Patient Records regulations: The Federal rules restrict any use of the information to criminally investigate or prosecute any alcohol or drug abuse patient.[facility] Hospital[facility] the event this information is protected by the Federal Confidentiality of Alcohol and Drug Abuse Patient Records regulations: The Federal rules restrict any use of the information to criminally investigate or prosecute any alcohol or drug abuse patient.[facility] HospitalIn the event this information is protected by the Federal Confidentiality of Alcohol and Drug Abuse Patient Records regulations: The Federal rules restrict any use of the information to criminally investigate or prosecute any alcohol or drug abuse patient.[facility] Reason for Visit (unrecogniz ed section and content) Reason Comments ED Follow-up Reason Onset Date Comments Refill Request 08/18/2022 Reason Onset Date Comments 5 month follow-up Immunizations 09/01/2022 Flu vaccination Reason Comments Results Reason Onset Date Comments Refill Request 12/24/2021 Refill Request 10/09/2022 Reason Onset Date Comments Refill Request 12/03/2022 Reason Comments Rectal Problem Reason Comments F/U 6 months Reason Onset Date Comments Refill Request 08/19/2023 Reason Comments Orders Reason Comments Questions about FMLA Care Teams (unrecognized sec tion and content) Wellness Nurse Rn Relationship Specialty Start Date End Date Ji Dixon MD [address] [facility] [place] [address] PCP - General Internal Medicine 01/18/17 Wellness Nurse Rn Relationship Specialty Start Date End Date Ji Dixon MD [address] [facility] [place] [address] PCP - General Internal Medicine 01/18/17 Wellness Nurse Rn Relationship Specialty Start Date End Date Ji Dixon MD [address] [facility] [place] [address] PCP - General Internal Medicine 01/18/17 Wellness Nurse Rn Relationship Specialty Start Date End Date Ji Dixon MD [address] [facility] [place] [address] PCP - General Internal Medicine 01/18/17 Wellness Nurse Rn Relationship Specialty Start Date End Date Ji Dixon MD [address] [facility] [place] [address] PCP - General Internal Medicine 01/18/17 Wellness Nurse Rn Relationship Specialty Start Date End Date Ji Dixon MD [address] [facility] [place] [address] PCP - General Internal Medicine 01/18/17 Wellness Nurse Rn Relationship Specialty Start Date End Date Ji Dixon MD [address] [facility] [place] [address] PCP - General Internal Medicine 01/18/17 Wellness Nurse Rn Relationship Specialty Start Date End Date Ji Dixon MD [address] [facility] [place] [address] PCP - General Internal Medicine 01/18/17 Wellness Nurse Rn Relationship Specialty Start Date End Date Ji Dixon MD [address] [facility] [place] [address] PCP - General Internal Medicine 01/18/17 Wellness Nurse Rn Relationship Specialty Start Date End Date Ji Dixon MD [address] [facility] [place] [address] PCP - General Internal Medicine 01/18/17 (unrecognized sect ion and content) No Status Records Found INFORMATION SOURCE (unrecogn ized section and content) FOR RECORDS PERTAINING TO PATIENTS WHO ARE OR HAVE BEEN ENROLLED IN A CHEMICAL DEPENDENCY/SUBSTANCEABUSE PROGRAM, SOME INFORMATION MAY BE OMITTED. This clinical summary was aggregated from multiple sources. Caution should be exercised in using it in the provision of clinical care. This summary normalizes information from multiple sources, and as a consequence, information in this document may materially change the coding, format and clinical context of patient data. In addition, data may be omitted in some cases. CLINICAL DECISIONS SHOULD BE BASED ON THE PRIMARY CLINICAL RECORDS. [employer] provides no warranty or guarantee of the accuracy or completeness of information in this document.
== END | disposition home or self-care (01) ==
LOC: CT 08:44
PROVIDERS: PCP Internal Medicine; Referring Provider Urology; Visit Provider Urology
DX: N20.0 Calculus of kidney (principal); R31.29 Other microscopic hematuria
CPT/HCPCS: 74176

== ENCOUNTER → 2025-02-02 | Outpatient (CLI) | payer MEDICARE, OTHER, SELFPAY ==
--- NOTE | 2025-02-02 07:30 | CT_ITS ---
PROCEDURE: ABDOMEN/PELVIS WITHOUT CONT 02/02/2025 REASON FOR EXAM: BENIGN NEOPLASM OF KIDNEY, EVALUATE R RENAL MASS TECHNIQUE: Abdomen and pelvis CT without intravenous contrast. Noncontrast technique limits evaluation of the abdominal and pelvic viscera. Coronal and Sagittal reconstruction series were provided. One or more dose reduction techniques were used (e.g., Automated exposure control, adjustment of the mA and/or kV according to patient size, use of iterative reconstruction technique). PATIENT PREPARATION: Per protocol ORAL CONTRAST TYPE: None. CT the at L volume: 12.02 DLP: 651.48 COMPARISON: Comparison is made with prior study dated November 20, 2023. FINDINGS: Lung bases: Unremarkable. Coronary artery calcification. Liver: Normal size. No obvious mass. Gallbladder: Small gallstone in the dependent portion of the gallbladder lumen. Spleen: Small spleen. Stable 2.9 cm by 3.3 cm calcified splenule in the anterior inferior aspect of the spleen. Pancreas: Normal size. No surrounding inflammation. Adrenals: Unremarkable. Kidneys: Stable bilateral large renal cysts. Stable 2.8 cm x 3.1 cm solid mass in the lower pole of the right kidney. Bladder: Diffuse bladder wall thickening. Heterogeneous enlargement of the prostate. Central prostatic calcification. Bowel: Colonic diverticulosis without diverticulitis. Appendix: Unremarkable Lymph nodes: Unremarkable. Vasculature: Mild diffuse atherosclerotic calcifications are noted. Peritoneum / Retroperitoneum: Small bilateral inguinal hernias containing fat. Bones: Degenerative changes of the spine. CT/Abdomen/Pelvis without Cont IMPRESSION: Stable examination. Reading Location: [id number]
== END | disposition home or self-care (01) ==
LOC: CT 07:28
PROVIDERS: PCP Internal Medicine; Referring Provider Urology; Visit Provider Urology
DX: D30.00 Benign neoplasm of unspecified kidney (principal)
CPT/HCPCS: 74176